=== PATIENT | male | born 1940 | race Caucasian/White ===

== ENCOUNTER 2017-06-21 09:58 | Emergency (ER) | payer MEDICARE, OTHER ==
[2013-11-20 12:16] VITALS: Wt 95.7 kg
[2017-06-21] MEDS ORDERED: MORPHINE 4 MG/ML SDV IVP ONE ×3 (10:05→13:00)
[2017-06-21] MEDS ORDERED: ONDANSETRON 4 MG/2 ML VIAL IVP ONE ×2 (10:30→13:00)
--- NOTE | 2017-06-21 10:46 | RADIOLOGY IMAGING REPORT ---
FACILITY: [facility] - [place] PATIENT NAME: Wolf Camacho : 1940 MR: [id number] V: [id number] EXAM DATE: ORDERING PHYSICIAN: JERMAINE BROWN TECHNOLOGIST: Location: [facility] Patient: Wolf Camacho : 1940 Visit/Account:[id number] Date of Sevice: 06/21/2017 ADDENDUM #1 The original study was submitted with left markers on the AP and lateral views of the knee. This was apparently a right knee not a left knee. Report Dictated By: Montse Rucker MD at 06/21/2017 12:19 PM Report E-Signed By: Montse Rucker MD at 06/21/2017 12:20 PM ORIGINAL REPORT Exam type: KNEE 4 VIEW RIGHT History: fall with known right knee prosthetic and obvious defor Comparison: August 12, 2009. Findings: Two views the left knee were submitted There is a severely comminuted fracture through the distal left femoral diaphysis and metaphysis. Th e fracture extends to the femoral component of the left knee arthroplasty. There is dorsal angulatio n of the distal fragment. There is also slight medial displacement of the distal fragment IMPRESSION: 1. Severe comminuted fracture the distal left femoral diaphysis and metaphysis with the fracture ext ending to the femoral component of the left knee arthroplasty as described above. Report Dictated By: Montse Rucker MD at 06/21/2017 10:42 AM Report E-Signed By: Montse Rucker MD at 06/21/2017 10:44 AM WSN:[id number]
--- NOTE | 2017-06-21 11:08 | EKG ---
FACILITY: [facility] PATIENT NAME: JORGE VILLATORO : [id number] MR: [id number] V: [id number] EXAM DATE: ORDERING PHYSICIAN: JERMAINE BROWN TECHNOLOGIST: JORGE Mitchell Reason : FALL Blood Pressure : / mmHG Vent. Rate : 068 BPM Atrial Rate : 068 BPM P-R Int : 208 ms QRS Dur : 114 ms QT Int : 428 ms P-R-T Axes : 052 -52 048 degrees QTc Int : 455 ms Sinus rhythm with premature supraventricular complexes Left axis deviation Minimal voltage criteria for LVH, may be normal variant Anterior infarct , age undetermined Abnormal ECG When compared with ECG of 29-OCT-2015 12:45, premature supraventricular complexes are now present Confirmed by CARMINA OWUSU ([id number]) on 06/22/2017 12:52:12 PM Referred By: KEVIN Confirmed By:CARMINA OWUSU
[2017-06-21 11:31] LABS: PLATELET COUNT, AUTOMATED 294 K/uL (150-450)
[2017-06-21 11:38] LABS: INR 1.01
[2017-06-21] MEDS ORDERED: DIAZEPAM 5 MG TAB PO ONE ×2 (11:40→13:30)
--- NOTE | 2017-06-21 12:07 | RADIOLOGY IMAGING REPORT ---
[place] [facility] [place]: Wolf Camacho : 1940 MR: [id number] V: [id number] EXAM DATE: ORDERING PHYSICIAN: JERMAINE BROWN TECHNOLOGIST: Location: [facility] [place] Patient: Wolf Camacho : 1940 Visit/Account:[id number] Date of Sevice: 06/21/[address] scan without contrast COMPARISONS: None ADDITIONAL PERTINENT HISTORY: Fall with anisocoria TECHNIQUE: Multiple axial images were obtained from the skull base to the vertex without IV contrast . One of the following dose optimization techniques was utilized in the performance of this exam: Aut omated exposure control; adjustment of the mA and/or kV according to the patient's size; or use of an iterative reconstruction technique. Specific details can be referenced in the facility's radiology CT exam operational policy. FINDINGS: Midline shift: Findings of an underlying mass involving the pituitary fossa with mild expansion of th e pituitary fossa measuring 1.4 x 1.5 x 1.5 cm. Soft tissue density extends into the right cavernous sinus as well as into the superior posterior aspects of the right sphenoid sinus concerning for exten miguel of this lesion into these regions. 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 Ventricles: Mild enlargement of the lateral and third ventricles. Brain parenchyma: Patchy hypoattenuation within the periventricular and subcortical white matter, no nspecific but likely representing small vessel ischemic change on a chronic basis. No intraparenchyma l hemorrhage or mass effect. Extra-axial spaces: Mild cerebral atrophy. Intracranial vasculature: Cavernous internal carotid artery calcifications. Otherwise negative Osseous structures: Negative Paranasal sinuses and mastoid air cells: Moderate lobular mucosal thickening involving both maxillar y sinuses. Mild mucosal thickening involving the ethmoid air cells and frontal sinuses. Soft tissue d ensity involving the posterior superior aspects of the right sphenoid sinus. Surrounding soft tissues and orbits: Negative IMPRESSION: 1. Age related changes as described above. 2. No evidence of acute intracranial traumatic injury. 3. 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 If felt clinically appropriate an MRI of the brain with dedicated imaging of the pituitary fossa with be of benefit for further evalua tion. Results were discussed with JERMAINE BROWN at 06/21/2017 12:04 PM. Report Dictated By: Uriel Mcmanus MD at 06/21/2017 11:57 AM Report E-Signed By: Uriel Mcmanus MD at 06/21/2017 12:04 PM WSN:[email or web address]
--- NOTE | 2017-06-21 13:18 | ER Report ---
History and Physical Time Seen By MD: 10:00 Hx. of Stated Complaint: PT FELL IN ALLEYWAY AND FELT R KNEE DISPLACE HPI/ROS This is a very pleasant 77-year-old male who fell onto his right knee while taking out the trash just prior to arriving in the emergency department. He is status post a right knee replacement. No other injuries. No head trauma and no loss of consciousness. He takes a full aspirin daily and no other anticoagulant medications. He is complaining of pain in his right knee. He is unable to bear weight or straighten his right leg fully. Remainder of the 14 system rev: Yes Allergies: Coded Allergies: Soap (Verified Allergy, Intermediate, BLISTERS, 11/14/15) povidone-iodine (Verified Allergy, Intermediate, BLISTERS, 11/14/15) Home Meds Reported Medications Cholecalciferol (Vitamin D3) (VITAMIN D) 5,000 Unit Tablet, 5000 UNIT PO DAILY 11/14/15 Pantoprazole Sodium (PANTOPRAZOLE SODIUM) 40 Mg Tablet.dr, 1 TAB PO QDAY, TAB.SR 11/10/15 Folic Acid (FOLIC ACID) 20 Mg Capsule, 20 MG PO QDAY, CAPSULE 11/03/15 Iron (IRON) 18 Mg Tablet, 27 MG PO 11/03/15 Oxybutynin Chloride (OXYBUTYNIN CHLORIDE ER) 10 Mg Tab.er.24, 10 MG PO QDAY, TAB.SR 11/03/15 Oxycodone Hcl/Acetaminophen (OXYCODONE-ACETAMINOPHEN 5-325) 1 Each Tablet, 1 EACH PO PRN, TAB 11/03/15 Adalimumab (HUMIRA) 40 Mg/0.8 Ml/Kit Kit, 40 MG SUBQ, KIT 02/22/14 Levothyroxine Sodium (LEVOTHYROXINE SODIUM) 75 Mcg Tablet, 75 MCG PO QDAY 02/22/14 Ascorbic Acid (VITAMIN C) 250 Mg Tablet, 250 MG PO QDAY 10/14/13 Loperamide Hcl (IMODIUM A-D) 1 Mg/7.5 Ml Liquid, 1 MG PO PRN 10/14/13 Lisinopril (LISINOPRIL) 20 Mg Tablet, 20 MG PO QDAY 04/12/13 Discontinued Reported Medications Atenolol (ATENOLOL) 25 Mg Tablet, 1 TAB PO QDAY, TAB 04/12/13 Hydrochlorothiazide (HYDROCHLOROTHIAZIDE) 25 Mg Tablet, 1 TAB PO QDAY 04/12/13 Potassium Chloride (K-Laila) 20 Meq/Pkt Packet, 20 MEQ PO DAILY, 0 Refills 08/21/09 Old Medical Records Reviewed: Yes Hx Smoking: No Smoking Status: Never Smoker Hx Substance Use Disorder: No Hx Alcohol Use: No Family History of: HTN Constitutional Vital Sign - Last 24 Hours 06/21/17 06/21/17 06/21/17 06/21/17 09:58 09:58 09:59 10:13 Temp 98.2 Pulse 74 ??? 65 Resp 16 11 B/P (MAP) 134/83 134/83 (100) Pulse Ox 92 92 94 06/21/17 06/21/17 06/21/17 06/21/17 10:28 10:30 10:43 10:58 Pulse 69 62 63 Resp 15 19 11 B/P (MAP) 125/80 (95) Pulse Ox 94 95 95 06/21/17 06/21/17 06/21/17 06/21/17 11:00 11:13 11:18 11:30 Pulse 62 67 Resp 11 19 B/P (MAP) 132/88 (103) 139/121 (127) Pulse Ox 96 95 06/21/17 06/21/17 06/21/17 06/21/17 11:33 11:48 11:52 12:00 Pulse 62 74 Resp 15 15 B/P (MAP) 151/84 (106) 149/81 (103) Pulse Ox 93 94 06/21/17 06/21/17 06/21/17 06/21/17 12:03 12:18 12:20 12:33 Pulse 65 75 ??? Resp 21 13 41 B/P (MAP) 147/86 (106) Pulse Ox 88 94 84 06/21/17 12:40 B/P (MAP) 140/100 (113) Physical Exam General Appearance: The patient is alert, has no immediate need for airway protection and no current signs of toxicity. Eyes: Pupils equal and round no injection. Respiratory: Chest is non tender, lungs are clear to auscultation. Cardiac: regular rate and rhythm Gastrointestinal: Abdomen is soft and non tender, no masses, bowel sounds normal. Musculoskeletal: TTP to the right knee with swelling and obvious deformity. Unable to fully straighten right knee. N/V in tact. Palpable pulses throughout Neck: Neck is supple and non tender. Neuro: sensation grossly in tact Skin: No rashes or lesions. DIFFERENTIAL DIAGNOSIS: After history and physical exam differential diagnosis was considered for arterial injury, fracture, dislocation, other occult injuries Medical Decision Making Data Points Result Diagram: 06/21/17 1119 06/21/17 1119 Laboratory Hematology Test 06/21/17 11:19 Red Blood Count 3.93 M/uL (4.00-5.60) Mean Corpuscular Volume 86.5 fL (80.0-96.0) Mean Corpuscular Hemoglobin 29.4 pg (26.0-33.0) Mean Corpuscular Hemoglobin Concent 34.0 g/dL (32.0-36.0) Red Cell Distribution Width 16.5 % (11.5-14.5) Mean Platelet Volume 6.8 fL (7.2-11.1) Neutrophils (%) (Auto) 71.0 % (39.4-72.5) Lymphocytes (%) (Auto) 19.2 % (17.6-49.6) Monocytes (%) (Auto) 7.3 % (4.1-12.4) Eosinophils (%) (Auto) 2.0 % (0.4-6.7) Basophils (%) (Auto) 0.5 % (0.3-1.4) Nucleated RBC Relative Count (auto) 0.2 /100WBC Neutrophils # (Auto) 5.1 K/uL (2.0-7.4) Lymphocytes # (Auto) 1.4 K/uL (1.3-3.6) Monocytes # (Auto) 0.5 K/uL (0.3-1.0) Eosinophils # (Auto) 0.1 K/uL (0.0-0.5) Basophils # (Auto) 0.0 K/uL (0.0-0.1) Nucleated RBC Absolute Count (auto) 0.01 K/uL Prothrombin Time 13.3 seconds (12.0-14.4) Prothromb Time International Ratio 1.01 Activated Partial Thromboplast Time 35 seconds (23-35) Sodium Level 137 mmol/L (137-145) Potassium Level 3.4 mmol/L (3.5-5.0) Chloride Level 97 mmol/L (98-107) Carbon Dioxide Level 32 mmol/L (22-30) Blood Urea Nitrogen 20 mg/dl (9-21) Creatinine 1.00 mg/dl (0.66-1.25) Glomerular Filtration Rate Calc > 60.0 Random Glucose 113 mg/dl (75-110) Calcium Level 8.3 mg/dl (8.4-10.2) Total Bilirubin 0.5 mg/dl (0.2-1.3) Aspartate Amino Transf (AST/SGOT) 18 U/L (0-35) Alanine Aminotransferase (ALT/SGPT) 28 U/L (0-56) Alkaline Phosphatase 58 U/L (0-126) Total Protein 5.4 gm/dl (6.3-8.2) Albumin 2.8 g/dl (3.5-5.0) Chemistry Test 06/21/17 11:19 White Blood Count 7.2 k/uL (4.5-11.0) Red Blood Count 3.93 M/uL (4.00-5.60) Hemoglobin 11.6 g/dL (14.0-18.0) Hematocrit 34.0 % (42.0-52.0) Mean Corpuscular Volume 86.5 fL (80.0-96.0) Mean Corpuscular Hemoglobin 29.4 pg (26.0-33.0) Mean Corpuscular Hemoglobin Concent 34.0 g/dL (32.0-36.0) Red Cell Distribution Width 16.5 % (11.5-14.5) Platelet Count 294 K/uL (150-450) Mean Platelet Volume 6.8 fL (7.2-11.1) Neutrophils (%) (Auto) 71.0 % (39.4-72.5) Lymphocytes (%) (Auto) 19.2 % (17.6-49.6) Monocytes (%) (Auto) 7.3 % (4.1-12.4) Eosinophils (%) (Auto) 2.0 % (0.4-6.7) Basophils (%) (Auto) 0.5 % (0.3-1.4) Nucleated RBC Relative Count (auto) 0.2 /100WBC Neutrophils # (Auto) 5.1 K/uL (2.0-7.4) Lymphocytes # (Auto) 1.4 K/uL (1.3-3.6) Monocytes # (Auto) 0.5 K/uL (0.3-1.0) Eosinophils # (Auto) 0.1 K/uL (0.0-0.5) Basophils # (Auto) 0.0 K/uL (0.0-0.1) Nucleated RBC Absolute Count (auto) 0.01 K/uL Prothrombin Time 13.3 seconds (12.0-14.4) Prothromb Time International Ratio 1.01 Activated Partial Thromboplast Time 35 seconds (23-35) Glomerular Filtration Rate Calc > 60.0 Calcium Level 8.3 mg/dl (8.4-10.2) Total Bilirubin 0.5 mg/dl (0.2-1.3) Aspartate Amino Transf (AST/SGOT) 18 U/L (0-35) Alanine Aminotransferase (ALT/SGPT) 28 U/L (0-56) Alkaline Phosphatase 58 U/L (0-126) Total Protein 5.4 gm/dl (6.3-8.2) Albumin 2.8 g/dl (3.5-5.0) Coagulation Test 06/21/17 11:19 Prothrombin Time 13.3 seconds Prothromb Time International Ratio 1.01 Activated Partial Thromboplast Time 35 seconds EKG/Imaging Monitor Interpretation: Normal Sinus Rhythm Imaging Results: CT scan of the head was obtained. The results of the study are incidental finding of a pituitary adenoma. The study was read by the radiologist. I viewed the images myself on the PACS system. X-ray: right knee was obtained. I viewed the images myself on the PACS system. My interpretation of the images is: comminuted christina-prosthetic fracture of the right distal femur. The radiologist interpretation had no clinically significant variation from this interpretation. ED Course/Re-evaluation Clinical Indication for ER IV: IV Access ED Course 06/21/2017 1:17:17 pm This is a very pleasant 77-year-old male status post bilateral knee replacements. He fell directly onto his right knee this morning while taking out the trash. No other injuries. Some mild anasicora was noted on his exam, and a CT scan of the head was obtained. There is an incidental finding of a small pituitary adenoma. It is unknown whether he's had anisicora before. His neuro exam is otherwise intact. He is neurovascularly intact. He has a comminuted fracture of the right christina prosthesis at the distal femur he has palpable pulses both in the right popliteal and distal pulses of the right lower extremity. I do not think he has an arterial injury and there is no dislocation. His orthopedic surgeon Dr. Saad Calvo is still currently practicing at [facility]. He will be transferred to the emergency department in [place] for further evaluation and admission for definitive repair of his fracture. Decision to Disposition Date: June 21, 2017 Decision to Disposition Time: 13:12 Transfer Facility [facility] Depart Departure Latest Vital Signs Vital Signs Date Time Temp Pulse Resp B/P (MAP) Pulse Ox O2 Delivery O2 Flow Rate FiO2 06/21/17 12:40 140/100 (113) 06/21/17 12:33 ??? 41 84 06/21/17 09:58 98.2 Impression: Primary Impression: Fracture of distal femur Condition: Improved Referrals: COCO LUCIA (PCP) Problem Qualifiers Primary Impression: Fracture of distal femur Encounter type: initial encounter Fracture type: closed Fracture morphology : unspecified fracture morphology Laterality: right Qualified Codes: S72.401A - Unspecified fracture of lower end of right femur, initial encounter for closed fracture JERMAINE BROWN MD June 21, 2017 13:18
[2017-06-21 13:20] VITALS: BP 138/88
== END 2017-06-21 13:30 | disposition short-term general hospital (02) ==
LOC: ER 10:00
DX: S72.401A Unspecified fracture of lower end of right femur, initial encounter for closed fracture (principal); W18.30XA Fall on same level, unspecified, initial encounter; Y93.89 Activity, other specified; H57.02 Anisocoria; R94.31 Abnormal electrocardiogram [ECG] [EKG]
CPT/HCPCS: 36415; 70450; 73564; 85025; 85610; 85730; 86850; 86900; 86901; 93005; 96374; 96375; 99285; A9270; J2270; J2405; 82040; 82247; 82310; 82374; 82435; 82565; 82947; 84075; 84132; 84155; 84295; 84450; 84460; 84520

== ENCOUNTER → 2017-06-21 | Outpatient (CLI) | payer MEDICARE, OTHER ==
[2013-11-20 12:16] VITALS: BMI 32.5
[~2017-06-21] MED LIST: ACET650O4 PO; ADA40I SUBQ; AMLO-96 PO; APIX2.5T PO; ASCO250T86 PO; ATEN-65 PO; ATEN1TAB PO; ATEN1TAB47 PO; AZA50 PO; BAC15T TOP; CEPH-13 PO; CHOL400C10 PO; CHOL500045 PO; DAR100 PO; DOCU-416 PO; ESZO3TAB37 PO; FES4PT PO; FLU180SY9 IM; FLUC100T35 PO; FLUT16SP19 NS; FOLI20CA2 PO; FURO-45 PO; H2O24 TOP; HYDR-2966 PO; IRON18TA2 PO; LEV500 PO; LEVO75TA73 PO; LEVO88TA42 PO; LISI20TA29 PO; LOPE1LIQ49 PO; LOPE2CAP88 PO; LOR5/325 PO; MOM PO; OMEP-153 PO; OXYB10TA16 PO; OXYC-373 PO; OXYC-865 PO; PANT40TA65 PO; PER PO; POTA20PA10 PO; POTA20PI5 IV; PRE20 PO; PRED20TA6 PO; PRO25 PO; TAM4 PO; VITA1CAP46 PO; ZOLP-350 PO
== END ==
LOC: AMB 09:21
PROVIDERS: ATTEND Nurse Practitioner
DX: M25.561 Pain in right knee (principal); M79.89 Other specified soft tissue disorders; R09.02 Hypoxemia; R11.0 Nausea; W18.30XA Fall on same level, unspecified, initial encounter
CPT/HCPCS: A0425; A0427

== ENCOUNTER → 2017-06-21 | Outpatient (CLI) | payer MEDICARE, OTHER ==
[2013-11-20 12:16] VITALS: BMI 32.5
== END ==
LOC: AMB 13:47
PROVIDERS: ATTEND Nurse Practitioner
DX: S72.401A Unspecified fracture of lower end of right femur, initial encounter for closed fracture (principal)
CPT/HCPCS: A0425; A0426

== ENCOUNTER 2017-11-02 14:30 | Outpatient (RCR) | payer MEDICARE, OTHER ==
[2013-11-20 12:16] VITALS: BMI 32.5
--- NOTE | 2017-09-06 16:06 | PT INITIAL EVALUATION ---
MEDICAL DIAGNOSIS: Periprosthetic supracondylar fracture of the femur, subsequent encounter M97.8XXD, Z96.659, Aftercare following surgery of the musculoskeletal system Z47.89, S/P ORIF fracture Z96.7, Z87.81 TREATMENT DIAGNOSIS: Same, Altered gait, imbalance DATE OF ONSET: 06/21/17 SUBJECTIVE: Wolf Camacho presents to PT to continue his rehabilitation for a R supracondylar femoral fracture from a fall in the alley behind his house onto his R knee, 06/21/17. He has completed rehabilitation in [place] and would like to improve his balance, gait, return to driving, walking with a walking stick. Pain location is lumbar, R knee and described as ache. Pain scale is on a ten point pain scale. Pain is worse with walking and better with rest, stimulator. REHAB PROBLEM LIST: Increased Pain Decreased ROM Decreased Strength Impaired Transfers Decreased Endurance Decreased Balance Decreased Function Decreased ADL's Decreased Mobility Decreased Gait PREVIOUS MEDICAL HISTORY: B TKA, R PRABHA, post-polio syndrome, peripheral neuropathy, parathyroidectomy, sinus surgery, Crohn's disease, cholecystectomy , pancreatitis, prostate cancer, lumbar spinal stimulator, R ulnar nerve release, B CTR, R shoulder tumor removal, a. fib once. 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 OBJECTIVE: Posture: Varus R knee, stooped trunk, heels 8" apart, low arches. ROM: R knee A/PROM -20/-10 to 100/110 degrees. B ankle DF 0 deg in rear foot neutral. R knee is ~twice the size of the L knee. Strength: R quad 4/5, hams 4+/5, ankle DF 5-/5, peroneals 4+/5 PF 3/5, L quad. , hams., DF 4+/5, peroneals 3+/5. Sensation: NT (peripheral neuropathy) Mobility: Sit to stand with UE use, unsteady immediate standing balance. Gait: Gait speed 10 feet/15 seconds, a household ambulator speed. Wolf ambulates with feet not passing each each other or clearing the floor, L lateral foot droop but not full drop. Tinetti Gait and Balance 13, a high fall risk for community ambulation. Balance: Unsteady turning 90 degrees, static stand with eyes closed on firm surface. ASSESSMENT: Wolf Camacho present with weakness, altered gait, balance, ROM, function, endurance, gait speed after his R supracondylar fracture in Jun, 2017. He did well with static postural control and LE exercise today. Short Term Goals 1 month: Wolf steps laterally without lateral L foot droop for fall risk reduction. 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 3 months: Gait speed 10 feet/10 seconds for improve ADL function, walking stick or cane. 4 months: Wolf descends stairs with handrail with R eccentric quad control, drives 1.0 to 2.0 hours with R knee pain 03/19. 5 months: Gait speed 10 feet/5 seconds with stick, demonstrates corrective balance reactions in turns, retro walking short distances. 6 months: 10 - 15 feet independent gait within his home, long distance community ambulator with stick, cane. Patient's Goals Drive, community ambulator. PLAN: Patient to be seen for Manual Therapy Strengthening/condition Ice/Heat Range of Motion Spinal Stabilization Stretching Neuromuscular Re-ed Electrical Stim Gait Trg/Balance Trg Home Exercise Program 3x/Week for 6 months Thank you for this referral. If you have any questions, comments, or concerns about this report or plan, please contact me at . MTDD
--- NOTE | 2017-09-30 15:45 | PT PLAN OF CARE ---
Physician: Ryan Downs PA-C Patient is being seen: 2-3x/week Therapist: Sydney Leon PT Medical Diagnosis: Periprosthetic supracondylar fracture of the femur, subsequent encounter M9 Treatment Diagnosis: Same, Altered gait, imbalance Date of Onset: 06/21/17 Date of Initial Evaluation: 09/06/17 Date patient was last seen: 09/30/17 Number of treatments: 10 Number of cancellations/No shows: 1 INTERVENTIONS: Manual Therapy, Strengthening, Range of Motion, Stretching, Gait Trg/Balance Trg GOALS: 1 month: Wolf steps laterally without lateral L foot droop for fall risk reduction. 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 3 months: Gait speed 10 feet/10 seconds for improve ADL function, walking stick or cane. 4 months: Wolf descends stairs with handrail with R eccentric quad control (not met), drives 1.0 to 2.0 hours with R knee pain 2/10 (not met). 5 months: Gait speed 10 feet/5 seconds with stick, demonstrates corrective balance reactions in turns, retro walking short distances. 6 months: 10 - 15 feet independent gait within his home, long distance community ambulator with stick, cane. PATIENT'S GOAL: Drive (met), community ambulator (progressing). Patient Compliance: Excellent Prognosis: Excellent Reasons for continuing therapy: S: Wolf henriquez he was able to stand 30 min. at a time this morning while picking choke cherries in his back yard, has driven around [place]. Car transfers are now independent and he is doing short distance community ambulation. He rates R knee pain 2/10 with standing. Posture: Varus R knee, flexed trunk, heels 6" apart, low arches. ROM: R knee A/PROM 15/10 to 115/127 degrees. B ankle DF 0 deg in rear foot neutral. Tight IT bands, psoas, quads, calves. Gait/balance: Gait with rollator with feet passing each other and clearing the floor. Balance: Steady with push to chest, with eyes closed. Tinetti Gait and Balance improved to 23, a fall risk. Double limb support currently. Mobility: Sit to stand without UE use, steady immediate standing balance. A/P: Wolf Camacho is improving functional mobility. If you agree, we'll continue 3x/week 5.25 months to progress to prior level of function, including gait with walking stick, community ambulator. MIKA
[~2017-11-02 14:30] MED LIST changes: +AMLO-111 PO; -AMLO-96 PO
--- NOTE | 2017-11-08 08:33 | PT PLAN OF CARE ---
Physician: Ryan Downs PA-C Patient is being seen: 2-3x/week Therapist: Sydney Leon PT Medical Diagnosis: Periprosthetic supracondylar fracture of the femur, subsequent encounter M9 Treatment Diagnosis: Same, Altered gait, imbalance Date of Onset: 06/21/17 Date of Initial Evaluation: 09/06/17 Date patient was last seen: 11/02/17 Number of treatments: 17 Number of cancellations/No shows: 3 INTERVENTIONS: Strengthening/condition, Manual Therapy, Range of Motion, Stretching, Neuromuscular Re-ed, Gait Trg/Balance Trg, Home Exercise Program GOALS: 1 month: Wolf steps laterally without lateral L foot droop for fall risk reduction. 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 3 months: Gait speed 10 feet/10 seconds for improve ADL function, walking stick or cane. (not met) 4 months: Wolf descends stairs with handrail with R eccentric quad control (not met), drives 1.0 to 2.0 hours with R knee pain 2/10 (not met). 5 months: Gait speed 10 feet/5 seconds with stick, demonstrates corrective balance reactions in turns, retro walking short distances. (not met) 6 months: 10 - 15 feet independent gait within his home, long distance community ambulator with stick, cane. (not met) PATIENT'S GOAL: Drive (met), community ambulator (progressing). Patient Compliance: Excellent Prognosis: Excellent Reasons for discontinuing therapy: S: Wolf has been hospitalized at [facility] for a. fib. and R knee swelling. Before he became ill, he related he could work his garden, did short distance ambulation with rollator at [place], about [facility] and to appointments and was driving. R knee pain was 2/10 most of the time. O: As of 11/02/17: Posture: Varus R knee, stooped trunk, heels 8" apart, low arches. ROM: R knee A/PROM 0/0 (10/24/17) to 115/126 (10/24/17) degrees. Strength: NT that day, but stand to sit 23" seat height with eccentric quad control. Gait/Balance: Rollator, flexed trunk, heel to toe pattern, slow cadance. Double limb support for balance. Mobility: Sit to stand with UE use, steady immediate standing balance. A/P: Wolf Camacho had been making progress in ambulation, strengthening, hadn't advanced to balance training yet in recovering from his R supracondylar fracture. As he's hospitalized, I need to DC PT. If I can assist in Wolf Camacho's physical therapy in the future, I'd be happy to work with him. Thank you. MIKA
== END 2017-11-02 18:00 | disposition home or self-care (01) ==
LOC: PT 14:30
PROVIDERS: ATTEND Otolaryngology
DX: Z47.89 Encounter for other orthopedic aftercare (principal); M97.8XXD Periprosthetic fracture around other internal prosthetic joint, subsequent encounter; R26.89 Other abnormalities of gait and mobility; Z96.653 Presence of artificial knee joint, bilateral; Z96.7 Presence of other bone and tendon implants; Z87.81 Personal history of (healed) traumatic fracture; M54.5 Low back pain; Z96.641 Presence of right artificial hip joint
CPT/HCPCS: 97162

== ENCOUNTER 2017-11-03 23:57 | Emergency (ER) | payer MEDICARE, OTHER ==
[2013-11-20 12:16] VITALS: Wt 104.3 kg
[2017-11-04 00:19] LABS: PLATELET COUNT, AUTOMATED 306 K/uL (150-450)
[2017-11-04 00:29] LABS: INR 1.18
--- NOTE | 2017-11-04 00:52 | ER Report ---
History and Physical Time Seen By MD: 23:57 Hx. of Stated Complaint: PATIENT WAS DOING PHYSICAL THERAPY WHEN THE PATIENT POSSIBLY DID TOO MUCH AND HIS KNEE WAS SWOLLEN AND STARTED TO HURT. HPI/ROS CHIEF COMPLAINT: Right knee swelling and pain HISTORY OF PRESENT ILLNESS: 77-year-old male with a history of a fractured femur in June of this year [place] [facility] [place] since he had a previous knee replacement. Patient's been 10 weeks in the hospital. He was in physical therapy today rehabbing when he felt a popping sensation in his right knee. It swelled up significantly. He is brought in by EMS. He has a tense joint effusion on the right is warm to the to [facility]. I suspect a hemarthrosis. Patient reports he is on blood thinners. Patient's placed on a glost tile sorter and noted that he is in atrial fibrillation with rapid ventricular response rate of 160. Patient was mildly hypoxic. Placed on O2 by EMS. Patient voices no chest pain or shortness of b reath. Patient denies cough. REVIEW OF SYSTEMS: Respiratory: No cough, no dyspnea. Cardiovascular: No chest pain, no palpitations. Gastrointestinal: No vomiting, no abdominal pain. Musculoskeletal: As above Allergies: Coded Allergies: Soap (Verified Allergy, Intermediate, BLISTERS, 11/04/17) povidone-iodine (Verified Allergy, Intermediate, BLISTERS, 11/04/17) Home Meds Reported Medications Cholecalciferol (Vitamin D3) (VITAMIN D) 5,000 Unit Tablet, 5000 UNIT PO DAILY 11/14/15 Pantoprazole Sodium (PANTOPRAZOLE SODIUM) 40 Mg Tablet.dr, 1 TAB PO QDAY, TAB.SR 11/10/15 Folic Acid (FOLIC ACID) 20 Mg Capsule, 20 MG PO QDAY, CAPSULE 11/03/15 Iron (IRON) 18 Mg Tablet, 27 MG PO 11/03/15 Oxybutynin Chloride (OXYBUTYNIN CHLORIDE ER) 10 Mg Tab.er.24, 10 MG PO QDAY, TAB.SR 11/03/15 Oxycodone Hcl/Acetaminophen (OXYCODONE-ACETAMINOPHEN 5-325) 1 Each Tablet, 1 EACH PO PRN, TAB 11/03/15 Adalimumab (HUMIRA) 40 Mg/0.8 Ml/Kit Kit, 40 MG SUBQ, KIT 02/22/14 Levothyroxine Sodium (LEVOTHYROXINE SODIUM) 75 Mcg Tablet, 75 MCG PO QDAY 02/22/14 Ascorbic Acid (VITAMIN C) 250 Mg Tablet, 250 MG PO QDAY 10/14/13 Loperamide Hcl (IMODIUM A-D) 1 Mg/7.5 Ml Liquid, 1 MG PO PRN 10/14/13 Lisinopril (LISINOPRIL) 20 Mg Tablet, 20 MG PO QDAY 04/12/13 Reviewed Nurses Notes: Yes Old Medical Records Reviewed: Yes Hx Smoking: No Smoking Status: Never Smoker Hx Substance Use Disorder: No Hx Alcohol Use: No Constitutional Vital Sign - Last 24 Hours 11/03/17 11/03/17 11/03/17 11/04/17 23:57 23:57 23:58 00:00 Temp 100.0 Pulse 154 150 Resp 19 B/P (MAP) 132/114 123/114 (117) 116/97 (103) Pulse Ox 85 78 O2 Delivery Room Air 11/04/17 11/04/17 11/04/17 11/04/17 00:27 00:30 00:57 01:00 Pulse 137 158 Resp 9 21 B/P (MAP) 123/99 (107) 109/93 (98) Pulse Ox 91 11/04/17 11/04/17 11/04/17 11/04/17 01:27 01:30 02:00 02:30 Pulse 170 125 96 Resp 25 19 20 B/P (MAP) 122/96 (105) 129/96 (107) 137/81 (99) Pulse Ox 92 11/04/17 11/04/17 11/04/17 11/04/17 03:00 03:02 03:30 04:00 Pulse 119 129 113 Resp 14 20 B/P (MAP) 134/93 (107) 153/121 (132) Pulse Ox 97 94 11/04/17 11/04/17 11/04/17 11/04/17 04:00 04:03 04:08 04:30 Pulse 112 119 Resp 14 15 B/P (MAP) 119/92 (101) 140/106 (117) Pulse Ox 93 95 11/04/17 11/04/17 11/04/17 11/04/17 04:38 05:00 05:08 05:30 Pulse 128 111 Resp 13 28 B/P (MAP) 125/76 (92) 112/81 (91) Pulse Ox 87 93 11/04/17 11/04/17 11/04/17 11/04/17 05:38 05:43 06:00 06:13 Pulse 113 103 103 Resp 24 20 21 B/P (MAP) 118/97 (104) Pulse Ox 93 95 94 11/04/17 11/04/17 11/04/17 11/04/17 06:30 06:34 06:34 06:35 Pulse 95 99 Resp 16 23 B/P (MAP) 113/76 (88) Pulse Ox 95 90 O2 Delivery Oxy Mask O2 Flow Rate 8.0 11/04/17 11/04/17 11/04/17 11/04/17 06:45 06:55 07:00 07:05 Pulse 108 106 107 Resp 16 23 21 B/P (MAP) 107/72 (84) Pulse Ox 95 93 93 Physical Exam Normotensive, tachycardic to the 170s, fever 100.0, pulse ox 90% on 4 L by simple mask General Appearance: The patient is alert, has no immediate need for airway protection and no current signs of toxicity. Slightly pale appearing, skin warm and dry HEENT: Pupils equal and round no injection. Oropharynx without redness or exudate, mucous. Membranes are moist Respiratory: Chest is non tender, bibasilar rails, no expiratory wheezing Cardiac: Tachycardic, irregular rate and rhythm, no murmur. Distant heart sounds Gastrointestinal: Abdomen is soft and non tender, no masses, bowel sounds normal. Musculoskeletal: Neck: Neck is supple and non tender. No lymphadenopathy, no JVD Extremities have full range of motion and are non tender. Right knee shows a huge tense, swollen joint effusion on the right knee Skin: No rashes or lesions. DIFFERENTIAL DIAGNOSIS: After history and physical exam differential diagnosis was considered for hemarthrosis, acute arthritis flare, septic joint, prosthetic displacement, additionally,shortness of breath including but not limited to pulmonary infectious process, COPD, asthma, pulmonary embolus and congestive heart failure. Medical Decision Making Data Points Result Diagram: 11/04/17 0004 11/04/17 0004 Laboratory Hematology Test 11/04/17 00:04 11/04/17 00:23 11/04/17 00:53 11/04/17 03:46 Red Blood Count 4.52 M/uL (4.00-5.60) Mean Corpuscular Volume 83.2 fL (80.0-96.0) Mean Corpuscular Hemoglobin 26.0 pg (26.0-33.0) Mean Corpuscular Hemoglobin Concent 31.3 g/dL (32.0-36.0) Red Cell Distribution Width 17.6 % (11.5-14.5) Mean Platelet Volume 7.0 fL (7.2-11.1) Neutrophils (%) (Auto) 85.1 % (39.4-72.5) Lymphocytes (%) (Auto) 5.3 % (17.6-49.6) Monocytes (%) (Auto) 9.1 % (4.1-12.4) Eosinophils (%) (Auto) 0.0 % (0.4-6.7) Basophils (%) (Auto) 0.5 % (0.3-1.4) Nucleated RBC Relative Count (auto) 0.0 /100WBC Neutrophils # (Auto) 15.3 K/uL (2.0-7.4) Lymphocytes # (Auto) 1.0 K/uL (1.3-3.6) Monocytes # (Auto) 1.6 K/uL (0.3-1.0) Eosinophils # (Auto) 0.0 K/uL (0.0-0.5) Basophils # (Auto) 0.1 K/uL (0.0-0.1) Nucleated RBC Absolute Count (auto) 0.00 K/uL Erythrocyte Sedimentation Rate 9 mm/HOUR (0-20) Prothrombin Time 15.1 seconds (12.0-14.4) Prothromb Time International Ratio 1.18 Activated Partial Thromboplast Time 35 seconds (23-35) Sodium Level 132 mmol/L (137-145) Potassium Level 3.8 mmol/L (3.5-5.0) Chloride Level 96 mmol/L (98-107) Carbon Dioxide Level 30 mmol/L (22-30) Blood Urea Nitrogen 20 mg/dl (9-21) Creatinine 1.00 mg/dl (0.66-1.25) Glomerular Filtration Rate Calc > 60.0 Random Glucose 125 mg/dl (75-110) Calcium Level 8.4 mg/dl (8.4-10.2) Total Bilirubin 0.6 mg/dl (0.2-1.3) Aspartate Amino Transf (AST/SGOT) 16 U/L (0-35) Alanine Aminotransferase (ALT/SGPT) 24 U/L (0-56) Alkaline Phosphatase 68 U/L (0-126) Total Protein 5.2 g/dl (6.3-8.2) Albumin 2.8 g/dl (3.5-5.0) D-Dimer Quantitative (PE/DVT) 2.29 ug/ml (0-0.50) B-Type Natriuretic Peptide 617 pg/ml (0-100) Lactate 1.4 mmol/L (0.7-2.1) Body Fluid Type Knee Body Fluid WBC 50 Body Fluid RBC 4832 Body Fluid Crystals None Test 11/04/17 04:10 11/04/17 04:34 Troponin I 0.114 ng/ml Urine Color Yellow Urine Clarity Clear Urine pH 5.0 pH (4.8-9.5) Urine Specific [place] 1.059 Urine Protein 30 mg/dL (NEGATIVE) Urine Glucose (UA) Negative mg/dL (NEGATIVE) Urine Ketones Negative mg/dL (NEGATIVE) Urine Blood Negative (NEGATIVE) Urine Nitrite Negative (NEGATIVE) Urine Bilirubin Negative (NEGATIVE) Urine Urobilinogen Negative mg/dL (0.2-1.9) Urine Leukocyte Esterase Negative (NEGATIVE) Urine RBC <1 /HPF (0-2/HPF) Urine WBC 3 /HPF (0-5/HPF) Urine Squamous Epithelial Cells None /LPF (</=FEW) Urine Transitional Epithelial Cells Few /LPF (NONE-FEW) Urine Bacteria Negative /HPF (NONE-FEW) Urine Hyaline Casts Few /LPF (NONE-FEW) Urine Mucus Few /HPF (NONE-FEW) Chemistry Test 11/04/17 00:04 11/04/17 00:23 11/04/17 00:53 11/04/17 03:46 White Blood Count 18.0 k/uL (4.5-11.0) Red Blood Count 4.52 M/uL (4.00-5.60) Hemoglobin 11.8 g/dL (14.0-18.0) Hematocrit 37.6 % (42.0-52.0) Mean Corpuscular Volume 83.2 fL (80.0-96.0) Mean Corpuscular Hemoglobin 26.0 pg (26.0-33.0) Mean Corpuscular Hemoglobin Concent 31.3 g/dL (32.0-36.0) Red Cell Distribution Width 17.6 % (11.5-14.5) Platelet Count 306 K/uL (150-450) Mean Platelet Volume 7.0 fL (7.2-11.1) Neutrophils (%) (Auto) 85.1 % (39.4-72.5) Lymphocytes (%) (Auto) 5.3 % (17.6-49.6) Monocytes (%) (Auto) 9.1 % (4.1-12.4) Eosinophils (%) (Auto) 0.0 % (0.4-6.7) Basophils (%) (Auto) 0.5 % (0.3-1.4) Nucleated RBC Relative Count (auto) 0.0 /100WBC Neutrophils # (Auto) 15.3 K/uL (2.0-7.4) Lymphocytes # (Auto) 1.0 K/uL (1.3-3.6) Monocytes # (Auto) 1.6 K/uL (0.3-1.0) Eosinophils # (Auto) 0.0 K/uL (0.0-0.5) Basophils # (Auto) 0.1 K/uL (0.0-0.1) Nucleated RBC Absolute Count (auto) 0.00 K/uL Erythrocyte Sedimentation Rate 9 mm/HOUR (0-20) Prothrombin Time 15.1 seconds (12.0-14.4) Prothromb Time International Ratio 1.18 Activated Partial Thromboplast Time 35 seconds (23-35) Glomerular Filtration Rate Calc > 60.0 Calcium Level 8.4 mg/dl (8.4-10.2) Total Bilirubin 0.6 mg/dl (0.2-1.3) Aspartate Amino Transf (AST/SGOT) 16 U/L (0-35) Alanine Aminotransferase (ALT/SGPT) 24 U/L (0-56) Alkaline Phosphatase 68 U/L (0-126) Total Protein 5.2 g/dl (6.3-8.2) Albumin 2.8 g/dl (3.5-5.0) D-Dimer Quantitative (PE/DVT) 2.29 ug/ml (0-0.50) B-Type Natriuretic Peptide 617 pg/ml (0-100) Lactate 1.4 mmol/L (0.7-2.1) Body Fluid Type Knee Body Fluid WBC 50 Body Fluid RBC 4832 Body Fluid Crystals None Test 11/04/17 04:10 11/04/17 04:34 Troponin I 0.114 ng/ml Urine Color Yellow Urine Clarity Clear Urine pH 5.0 pH (4.8-9.5) Urine Specific [place] 1.059 Urine Protein 30 mg/dL (NEGATIVE) Urine Glucose (UA) Negative mg/dL (NEGATIVE) Urine Ketones Negative mg/dL (NEGATIVE) Urine Blood Negative (NEGATIVE) Urine Nitrite Negative (NEGATIVE) Urine Bilirubin Negative (NEGATIVE) Urine Urobilinogen Negative mg/dL (0.2-1.9) Urine Leukocyte Esterase Negative (NEGATIVE) Urine RBC <1 /HPF (0-2/HPF) Urine WBC 3 /HPF (0-5/HPF) Urine Squamous Epithelial Cells None /LPF (</=FEW) Urine Transitional Epithelial Cells Few /LPF (NONE-FEW) Urine Bacteria Negative /HPF (NONE-FEW) Urine Hyaline Casts Few /LPF (NONE-FEW) Urine Mucus Few /HPF (NONE-FEW) Coagulation Test 11/04/17 00:04 11/04/17 00:23 Prothrombin Time 15.1 seconds Prothromb Time International Ratio 1.18 Activated Partial Thromboplast Time 35 seconds D-Dimer Quantitative (PE/DVT) 2.29 ug/ml Urinalysis Test 11/04/17 04:34 Urine Color Yellow Urine Clarity Clear Urine pH 5.0 pH (4.8-9.5) Urine Specific [place] 1.059 Urine Protein 30 mg/dL (NEGATIVE) Urine Glucose (UA) Negative mg/dL (NEGATIVE) Urine Ketones Negative mg/dL (NEGATIVE) Urine Blood Negative (NEGATIVE) Urine Nitrite Negative (NEGATIVE) Urine Bilirubin Negative (NEGATIVE) Urine Urobilinogen Negative mg/dL (0.2-1.9) Urine Leukocyte Esterase Negative (NEGATIVE) Urine RBC <1 /HPF (0-2/HPF) Urine WBC 3 /HPF (0-5/HPF) Urine Squamous Epithelial Cells None /LPF (</=FEW) Urine Transitional Epithelial Cells Few /LPF (NONE-FEW) Urine Bacteria Negative /HPF (NONE-FEW) Urine Hyaline Casts Few /LPF (NONE-FEW) Urine Mucus Few /HPF (NONE-FEW) Microbiology Microbiology Date/Time Source Procedure Growth Status 11/04/17 00:53 Blood Peripheral Draw Blood Culture - Final Resulted 11/04/17 00:53 Blood Culture - Preliminary Gram Positive Cocci Resulted 11/04/17 00:23 Blood Peripheral Draw Blood Culture - Final Resulted 11/04/17 00:23 Blood Culture - Preliminary Gram Positive Cocci Resulted 11/04/17 03:46 Knee Fluid Right Gram Stain - Final Resulted 11/04/17 03:46 Knee Fluid Right Body Fluid Culture Pending Resulted EKG/Imaging EKG Interpretation 12 lead EK Rhythm: Atrial fibrillation with rapid ventricular response, rate 156 bpm, left axis deviation [place]: normal QRS: normal ST segments: Nonspecific ST and T-wave changes, comparison to previous EKG dated 06/21/17. Overall morphology does not appear significantly changed. Patient was in a sinus rhythm with frequent premature supraventricular beats at a rate of 68 bpm, previously 12 lead EK 531 Rhythm: Atrial fibrillation rate of 113 bpm [place]: Left axis deviation QRS: Left ventricular hypertrophy with QRS widening ST segments:, Diffuse nonspecific ST and T-wave changes, comparison to previous EKG dated 06/21/17 Imaging X-ray: Right knee, 3 views was obtained. I viewed the images myself on the PACS system. My interpretation of the images is: Notable prosthetic with intact hardware. There is no obvious fracture noted. The radiologist interpretation had no clinically significant variation from this interpretation. X-ray: Single view portable chest x-ray was obtained. I viewed the images myself on the PACS system. My interpretation of the images is: No infiltrate, no effusion, normal mediastinum, metallic foreign body in the midline. Present on previous chest x-rays 10/29/15. The radiologist interpretation had no clinically significant variation from this interpretation. Results: CT scan of the CTA pulmonary angiogram was obtained. The results of the study are CT angiogram of the chest: Indication: Hypoxia. Technique: Helical CT was performed through the chest following IV contrast enhancement with 75 cc of Isovue 370. Multiplanar reconstructions and MIP images are reviewed. One of the following dose optimization techniques was utilized in the performance of this exam: Automated exposure control; adjustment of the mA and/or kV according to the patient's size; or use of an iterative reconstruction technique. Specific details can be referenced in the facility's radiology CT exam operational policy. Comparison: None. Pulmonary arteries: There is uniform contrast enhancement. There are no signs of pulmonary emboli. Aorta and great vessels: Unremarkable, as visualized. There are no signs of aneurysm. There is mild atherosclerotic calcification in the aortic wall. Heart and pericardial soft tissues: The heart is mildly enlarged. Atherosclerotic calcification is present in the coronary arteries. There is no pericardial effusion or soft tissue abnormality. Mediastinal soft tissues: Unremarkable. Lung driver: There are parenchymal opacities in both lower lung driver, right gr eater than left, which may represent atelectasis or acute inflammation. The lungs are otherwise clear. Pleural spaces: There is minimal fluid in the right pleural space. Otherwise unremarkable. Skeletal structures: There is moderate degenerative disc disease in the spine. A neurostimulator is present in the spinal canal. No acute skeletal deformity is identified. Upper abdomen: Unremarkable, as visualized. IMPRESSION: No evidence of pulmonary emboli. There are parenchymal opacities in both lower lobes, compatible with atelectasis or acute inflammation. Further clinical correlation is recommended. The study was read by the radiologist. I viewed the images myself on the PACS system. ED Course/Re-evaluation Clinical Indication for ER IV: Hydration, IV Access ED Course Patient was admitted to an examination room. H&P was done. The differential diagnoses was considered. Patient with a grossly swollen right knee. He has a low-grade fever. He is tachycardic to the 160s. He has a history of atrial fibrillation. Her previous EKG shows sinus rhythm. Patient's had no blood thinners currently. Patient's on Humira for arthritis treatment. Patient's hypoxic with fever. Diagnostic evaluation is undertaken. Blood cultures are drawn. Patient's rate controlled with diltiazem 20 no grams IV. Patient's d-d rebeca returns elevated at 2.2. A CTA pulmonary angiogram is performed which is negative for pulmonary embolism. There are bilateral patchy lower lobe infiltrates. Patient's blood cell returns at 18,000 with left shift. His right knee for has arthrocentesis performed. His urinalysis Returns unremarkable. Lactate is negative. Patient's urinalysis shows a grossly elevated specific gravity. Fluid boluses are initiated. Troponin is elevated into the upper indeterminate range, suspicious for ischemia. His EKG shows no evidence of ischemia. Compared to previous EKGs. However, it has significant increase in heart rate. A repeat troponin at 3 hours is ordered, which is slightly increased to 0.114. A repeat EKG shows better rate control with QRS angle change with ST elevation in the anterolateral leads. 11/04/2017 3:47:22 am Procedure: Arthrocentesis. After verbal informed consent from patient explaining the risks including infection and bleeding a arthrocentesis was performed on the right knee. The arthrocentesis was performed after the patient was prepped and draped in the usual fashion. The joint was anesthetized with 1% lidocaine. Approximately 30 mL of cloudy yellow fluid was obtained. There were no complications. Fluid was sent for analysis and culture. The procedure was performed by myself. 11/04/2017 6:11:[address] Donohue hospitalist at at [facility] accepts the patient for transfer to his facility. He requests Zosyn and vancomycin be administered. Patient's rate be controlled with diltiazem. Gentle fluid hydration be initiated. Prior to transfer. Decision to Disposition Date: Nov 04, 2017 Decision to Disposition Time: 01:00 Critical Care Time I spent a total of 90 minutes of critical care time in obtaining history, performing a physical exam, bedside monitoring of interventions, collecting and interpreting tests and discussion with consultants but not including time spent performing procedures. Depart Departure Latest Vital Signs Vital Signs Date Time Temp Pulse Resp B/P (MAP) Pulse Ox O2 Delivery O2 Flow Rate FiO2 11/04/17 07:05 107 21 93 11/04/17 07:00 107/72 (84) 11/04/17 06:34 Oxy Mask 8.0 11/03/17 23:57 100.0 Impression: Primary Impression: Non-STEMI (non-ST elevated myocardial infarction) Additional Impressions: Swelling of right knee joint Atrial fibrillation with RVR Fever Leukocytosis Bilateral pulmonary infiltrates on CXR Condition: Improved Disposition: XFER TO ACUTE CARE HOSPITAL Referrals: COCO LUCIA (PCP) Problem Qualifiers Additional Impressions: Fever Fever type: unspecified Qualified Codes: R50.9 - Fever, unspecified Leukocytosis Leukocytosis type: unspecified Qualified Codes: D72.829 - Elevated white blood cell count, unspecified KIRA BAIG DO Nov 04, 2017 00:51
--- NOTE | 2017-11-04 00:56 | EKG ---
FACILITY: [facility] [place] PATIENT NAME: JORGE VILLATORO : [id number] MR: [id number] V: [id number] EXAM DATE: ORDERING PHYSICIAN: KIRA BAIG TECHNOLOGIST: ROSANGELA Test Reason : TACHYCARDIA Blood Pressure : / mmHG Vent. Rate : 156 BPM Atrial Rate : 174 BPM P-R Int : 000 ms QRS Dur : 122 ms QT Int : 310 ms P-R-T Axes : 000 -52 105 degrees QTc Int : 499 ms Atrial fibrillation with rapid ventricular response Left axis deviation Septal infarct (cited on or before 21-JUN-2017) Inferior infarct , age undetermined Marked ST abnormality, possible lateral subendocardial injury Abnormal ECG When compared with ECG of 21-JUN-2017 11:03, Atrial fibrillation has replaced Sinus rhythm Vent. rate has increased BY 88 BPM Confirmed by Isac White ([id number]) on 11/04/2017 6:21:33 AM Referred By: JOVANNI Confirmed By:Isac Shepherd
--- NOTE | 2017-11-04 01:16 | RADIOLOGY IMAGING REPORT ---
FACILITY: [facility] PATIENT NAME: Wolf Camacho : 1940 MR: [id number] V: [id number] EXAM DATE: ORDERING PHYSICIAN: KIRA BAIG TECHNOLOGIST: Location: [facility] [place] Patient: Wolf Camacho : 1940 Visit/Account:[id number] Date of Sevice: 11/04/2017 CHEST SINGLE AP 11/04/2017 00:41 hours. HISTORY: Fever. Evaluate for pneumonia. COMPARISON: 10/29/2015 and studies dating to 11/05/2005. TECHNIQUE: Portable AP view of the chest. FINDINGS: Tubes/lines/hardware: There is a spinal stimulator. Top of the lead terminates at T8. Pulmonary: No infiltrate. There is minimal right basilar atelectasis. There is minimal atelectasis or scarring at the left costophrenic angle that is unchanged. There is no pneumothorax or pleural effus ion. Cardiomediastinal: The cardiac silhouette is at the upper limits of normal. The mediastinal silhouett e is within normal limits. There is mild aortic calcification. Bones/soft tissues: No acute osseous abnormality. The visible abdomen is normal. IMPRESSION: 1. Minimal right basilar atelectasis and minimal scarring or atelectasis at the left costophrenic ang le. No pneumonia. Report Dictated By: Payton Rush at 11/04/2017 1:10 AM Report E-Signed By: Payton Rush at 11/04/2017 1:12 AM WSN:[id number]
--- NOTE | 2017-11-04 01:21 | RADIOLOGY IMAGING REPORT ---
FACILITY: [facility] PATIENT NAME: Wolf Camacho : 1940 MR: [id number] V: [id number] EXAM DATE: ORDERING PHYSICIAN: KIRA BAIG TECHNOLOGIST: [place] [facility] [place] : 1940 Visit/Account:[id number] Date of Sevice: 11/04/2017 KNEE 3 VIEW RIGHT HISTORY: Swollen knee. History of femur fracture 3 months ago. COMPARISON: 06/21/2017 and studies dating to 08/12/2009. TECHNIQUE: AP, oblique, and crosstable lateral views of the right knee. FINDINGS: There is a left total knee arthroplasty. There has been interval placement of a lateral garth te, screws, and cerclage wires transfixing the distal femoral diaphysis and metaphysis. There is irre gular periosteal reaction at the fracture site. No acute fracture. There is diffuse soft tissue swell ing of the lower thigh and in the, and there is a moderate joint effusion. IMPRESSION: 1. Soft tissue swelling and moderate joint effusion, but no acute osseous abnormality of the right kn ee. 2. Irregular periosteal reaction along the medial surface of the healing fracture. Report Dictated By: Payton Rush at 11/04/2017 1:12 AM Report E-Signed By: Payton Rush at 11/04/2017 1:16 AM WSN:[id number]
[2017-11-04] MEDS ORDERED: DILTIAZEM 5 MG/ML 5ML IVPUSH IVP ONE ×3 (01:35→06:15)
[2017-11-04] MEDS ORDERED: IOPAMIDOL 76% 75 ML INFUS BTL 75 ML ONE (01:40)
[2017-11-04] MEDS ORDERED: NS(*) 0.9% 50 ML BAG 50 ML ONE (01:41)
[2017-11-04] MEDS ORDERED: fentaNYL CITR 100 MCG/2 ML AMP IVP ONE ×2 (01:50→06:50)
--- NOTE | 2017-11-04 03:32 | RADIOLOGY IMAGING REPORT ---
[place] [facility] [place] NAME: Wolf Camacho : 1940 MR: [id number] V: [id number] EXAM DATE: ORDERING PHYSICIAN: KIRA BAIG TECHNOLOGIST: Location: [facility] [place] Patient: Wolf Camacho : 1940 Visit/Account:[id number] Date of Sevice: 11/04/2017 CT angiogram of the chest: Indication: Hypoxia. Technique: Helical CT was performed through the chest following IV contrast enhancement with 75 cc of Isovue 370. Multiplanar reconstructions and MIP images are reviewed. One of the following dose optimization techniques was utilized in the performance of this exam: Autom ated exposure control; adjustment of the mA and/or kV according to the patient's size; or use of an i terative reconstruction technique. Specific details can be referenced in the facility's radiology CT exam operational policy. Comparison: None. Pulmonary arteries: There is uniform contrast enhancement. There are no signs of pulmonary emboli. Aorta and great vessels: Unremarkable, as visualized. There are no signs of aneurysm. There is mild a therosclerotic calcification in the aortic wall. Heart and pericardial soft tissues: The heart is mildly enlarged. Atherosclerotic calcification is pr esent in the coronary arteries. There is no pericardial effusion or soft tissue abnormality. Mediastinal soft tissues: Unremarkable. Lung driver: There are parenchymal opacities in both lower lung driver, right greater than left, whic h may represent atelectasis or acute inflammation. The lungs are otherwise clear. Pleural spaces: There is minimal fluid in the right pleural space. Otherwise unremarkable. Skeletal structures: There is moderate degenerative disc disease in the spine. A neurostimulator is p resent in the spinal canal. No acute skeletal deformity is identified. Upper abdomen: Unremarkable, as visualized. IMPRESSION: No evidence of pulmonary emboli. There are parenchymal opacities in both lower lobes, com patible with atelectasis or acute inflammation. Further clinical correlation is recommended. Report Dictated By: Librado Matthews MD at 11/04/2017 3:17 AM Report E-Signed By: Librado Matthews MD at 11/04/2017 3:28 AM WSN:[id number]
[2017-11-04] MEDS ORDERED: ASPIRIN 81 MG CHEW PO ONE (04:05)
[2017-11-04] MEDS ORDERED: cefTRIAXone 2 GM VIAL IVP ONE (04:45)
--- NOTE | 2017-11-04 05:40 | EKG ---
FACILITY: [facility] PATIENT NAME: JORGE VILLATORO : [id number] MR: [id number] V: [id number] EXAM DATE: ORDERING PHYSICIAN: KIRA BAIG TECHNOLOGIST: ROSANGELA Test Reason : REPEAT FOR TACH Blood Pressure : / mmHG Vent. Rate : 113 BPM Atrial Rate : 111 BPM P-R Int : 000 ms QRS Dur : 128 ms QT Int : 350 ms P-R-T Axes : 000 -48 103 degrees QTc Int : 480 ms Atrial fibrillation with rapid ventricular response Left axis deviation Left ventricular hypertrophy with QRS widening Abnormal ECG When compared with ECG of 04-NOV-2017 00:42, No significant change was found Confirmed by Isac White ([id number]) on 11/04/2017 6:22:04 AM Referred By: Confirmed By:Isac Shepherd
[2017-11-04] MEDS ORDERED: PIPERACILLIN/TAZO*3.375GM VIAL 3.375 GM in NS(*) 0.9% 100 ML ADDVANT BAG 100 ML IVPB ONE (06:15)
[2017-11-04] MEDS ORDERED: NS(*) 0.9% 1000 ML BAG 1,000 ML IV ONE (06:15)
[2017-11-04] MEDS ORDERED: VANCOMYCIN 1 GM ADDVIAL 1 GM in NS(*) 0.9% 250 ML ADDVAN BAG 250 ML IVPB ONE (06:15)
[2017-11-04] MEDS ORDERED: ALBUTEROL/IPRATROPIUM 3 ML NEB NEB ONE (06:20)
[2017-11-04 07:00] VITALS: BP 107/72
== END 2017-11-04 07:20 | disposition short-term general hospital (02) ==
LOC: ER 11-04
DX: I21.4 Non-ST elevation (NSTEMI) myocardial infarction (principal); D72.829 Elevated white blood cell count, unspecified; M79.89 Other specified soft tissue disorders; R91.8 Other nonspecific abnormal finding of lung field; I48.2 Chronic atrial fibrillation
CPT/HCPCS: 20610; 36415; 71045; 71275; 73562; 81001; 83605; 83880; 84484; 85025; 85379; 85610; 85651; 85730; 87040; 87071; 87077; 87186; 87205; 89050; 89060; 93005; 94640; 96365; 96367; 96375; 96376; 99291; 99292; A9270; J0696; J2543; J3010; J3370; J3490; J7030; J7050; J7620; Q9967; 82040; 82247; 82310; 82374; 82435; 82565; 82947; 84075; 84132; 84155; 84295; 84450; 84460; 84520

== ENCOUNTER → 2017-11-03 | Outpatient (CLI) | payer MEDICARE, OTHER ==
[2013-11-20 12:16] VITALS: BMI 32.5
== END ==
LOC: AMB 23:30
PROVIDERS: ATTEND Nurse Practitioner
DX: M25.561 Pain in right knee (principal); M79.89 Other specified soft tissue disorders
CPT/HCPCS: A0425; A0427

== ENCOUNTER → 2017-11-04 | Outpatient (CLI) | payer MEDICARE, OTHER ==
[2013-11-20 12:16] VITALS: BMI 32.5
== END ==
LOC: AMB 06:51
PROVIDERS: ATTEND Nurse Practitioner
DX: I21.4 Non-ST elevation (NSTEMI) myocardial infarction (principal); J18.9 Pneumonia, unspecified organism; Z99.81 Dependence on supplemental oxygen; I48.91 Unspecified atrial fibrillation; R53.1 Weakness
CPT/HCPCS: A0425; A0426

== ENCOUNTER → 2017-11-22 | Outpatient (CLI) | payer MEDICARE, OTHER ==
[2013-11-20 12:16] VITALS: BMI 32.5
--- NOTE | 2017-11-22 12:53 | EKG ---
FACILITY: [facility] PATIENT NAME: JORGE VILLATORO : [id number] MR: [id number] V: [id number] EXAM DATE: ORDERING PHYSICIAN: COCO LUCIA TECHNOLOGIST: Test Reason : I48.2 Blood Pressure : / mmHG Vent. Rate : 145 BPM Atrial Rate : 150 BPM P-R Int : 000 ms QRS Dur : 104 ms QT Int : 334 ms P-R-T Axes : 000 -49 126 degrees QTc Int : 518 ms Atrial fibrillation with rapid ventricular response Left axis deviation Septal infarct , age undetermined Abnormal ECG No previous ECGs available Confirmed by JOSE DIAMOND ([id number]) on 11/22/2017 10:16:46 PM Referred By: Confirmed By:JOSE DIAMOND
== END ==
LOC: RESP 11:48
PROVIDERS: ATTEND Nurse Practitioner Family
DX: R94.31 Abnormal electrocardiogram [ECG] [EKG] (principal)
CPT/HCPCS: 93005

== ENCOUNTER 2017-12-20 10:45 | Outpatient (RCR) | payer MEDICARE, OTHER ==
[2013-11-20 12:16] VITALS: BMI 32.5
[2017-11-22 10:23] VITALS: BP 134/95
[2017-11-22] MEDS: DAPTOMYCIN IVPB SCH (10:28)
[2017-11-22] MEDS: NS 0.9% IVPB SCH (10:28)
[2017-11-22] MEDS: NS(*) 0.9% 100 ML BAG 100 ML IVPB PRN (10:28)
[2017-11-23] MEDS: NS 0.9% IVPB SCH (10:00)
[2017-11-23] MEDS: DAPTOMYCIN IVPB SCH (10:00)
[2017-11-23 10:31] VITALS: BP 120/90
[2017-11-23] MEDS: NS(*) 0.9% 100 ML BAG 100 ML IVPB PRN (11:27)
[2017-11-24] MEDS: NS 0.9% IVPB SCH (11:35)
[2017-11-24] MEDS: DAPTOMYCIN IVPB SCH (11:35)
[2017-11-24] MEDS: NS(*) 0.9% 100 ML BAG 100 ML IVPB PRN (11:36)
[2017-11-24 11:40] VITALS: BP 129/89
[2017-11-24 12:13] VITALS: BP 148/101
[2017-11-25 11:10] VITALS: BP 110/70
[2017-11-25] MEDS: NS(*) 0.9% 100 ML BAG 100 ML IVPB PRN (11:23)
[2017-11-25] MEDS: DAPTOMYCIN IVPB SCH (11:23)
[2017-11-25] MEDS: NS 0.9% IVPB SCH (11:23)
[2017-11-26 10:08] VITALS: BP 141/101
[2017-11-26] MEDS: DAPTOMYCIN IVPB SCH (10:08)
[2017-11-26] MEDS: NS(*) 0.9% 100 ML BAG 100 ML IVPB PRN (10:08)
[2017-11-26] MEDS: NS 0.9% IVPB SCH (10:08)
[2017-11-27 09:50] VITALS: BP 121/81
[2017-11-27] MEDS: NS(*) 0.9% 100 ML BAG 100 ML IVPB PRN (09:57)
[2017-11-27] MEDS: DAPTOMYCIN IVPB SCH (10:16)
[2017-11-27] MEDS: NS 0.9% IVPB SCH (10:16)
[2017-11-28] MEDS: NS 0.9% IVPB SCH (10:00)
[2017-11-28] MEDS: DAPTOMYCIN IVPB SCH (10:00)
[2017-11-28] MEDS: NS(*) 0.9% 100 ML BAG 100 ML IVPB PRN (11:26)
[2017-11-29] MEDS: NS 0.9% IVPB SCH (11:09)
[2017-11-29] MEDS: NS(*) 0.9% 100 ML BAG 100 ML IVPB PRN (11:09)
[2017-11-29] MEDS: DAPTOMYCIN IVPB SCH (11:09)
[2017-11-29 11:13] VITALS: BP 134/83
[2017-11-30] MEDS: NS 0.9% IVPB SCH (11:05)
[2017-11-30] MEDS: NS(*) 0.9% 100 ML BAG 100 ML IVPB PRN (11:05)
[2017-11-30] MEDS: DAPTOMYCIN IVPB SCH (11:05)
[2017-11-30 11:18] VITALS: BP 128/79
[2017-11-30 11:43] VITALS: BP 120/80
[2017-12-01] MEDS: NS 0.9% IVPB SCH (10:53)
[2017-12-01] MEDS: DAPTOMYCIN IVPB SCH (10:53)
[2017-12-01] MEDS: NS(*) 0.9% 100 ML BAG 100 ML IVPB PRN (10:54)
[2017-12-01 10:59] VITALS: BP 132/109
[2017-12-02 11:04] VITALS: BP 109/89
[2017-12-02] MEDS: NS(*) 0.9% 100 ML BAG 100 ML IVPB PRN (11:20)
[2017-12-02] MEDS: DAPTOMYCIN IVPB SCH (11:20)
[2017-12-02] MEDS: NS 0.9% IVPB SCH (11:20)
[2017-12-03] MEDS: NS(*) 0.9% 100 ML BAG 100 ML IVPB PRN (11:18)
[2017-12-03] MEDS: DAPTOMYCIN IVPB SCH (11:18)
[2017-12-03] MEDS: NS 0.9% IVPB SCH (11:18)
[2017-12-03 11:19] VITALS: BP 150/78
[2017-12-03 11:50] VITALS: BP 138/78
[2017-12-04] MEDS: NS 0.9% IVPB SCH (11:18)
[2017-12-04] MEDS: DAPTOMYCIN IVPB SCH (11:18)
[2017-12-04] MEDS: NS(*) 0.9% 100 ML BAG 100 ML IVPB PRN (11:18)
[2017-12-04 11:29] VITALS: BP 140/78
[2017-12-04 11:53] VITALS: BP 138/78
[2017-12-05] MEDS: NS 0.9% IVPB SCH (11:15)
[2017-12-05] MEDS: DAPTOMYCIN IVPB SCH (11:15)
[2017-12-05] MEDS: NS(*) 0.9% 100 ML BAG 100 ML IVPB PRN (11:15)
[2017-12-05 11:31] VITALS: BP 136/93
[2017-12-06] MEDS: DAPTOMYCIN IVPB SCH (11:17)
[2017-12-06] MEDS: NS 0.9% IVPB SCH (11:17)
[2017-12-06] MEDS: NS(*) 0.9% 100 ML BAG 100 ML IVPB PRN (11:18)
[2017-12-06 11:28] VITALS: BP 129/87
[2017-12-07 12:23] VITALS: BP 139/95
[2017-12-07] MEDS: NS(*) 0.9% 100 ML BAG 100 ML IVPB PRN (12:40)
[2017-12-07] MEDS: NS 0.9% IVPB SCH (12:41)
[2017-12-07] MEDS: DAPTOMYCIN IVPB SCH (12:41)
[2017-12-08] MEDS: NS(*) 0.9% 100 ML BAG 100 ML IVPB PRN (10:54)
[2017-12-08] MEDS: NS 0.9% IVPB SCH (11:06)
[2017-12-08] MEDS: DAPTOMYCIN IVPB SCH (11:06)
[2017-12-08 11:16] VITALS: BP 133/103
[2017-12-08 11:52] VITALS: BP 134/93
[2017-12-08 12:36] LABS: PLATELET COUNT, AUTOMATED 390 K/uL (150-450)
[2017-12-09 11:03] VITALS: BP 123/93
[2017-12-09] MEDS: NS(*) 0.9% 100 ML BAG 100 ML IVPB PRN (11:11)
[2017-12-09] MEDS: NS 0.9% IVPB SCH (11:11)
[2017-12-09] MEDS: DAPTOMYCIN IVPB SCH (11:11)
[2017-12-09 11:49] VITALS: BP 134/80
[2017-12-10] MEDS: NS(*) 0.9% 100 ML BAG 100 ML IVPB PRN (11:05)
[2017-12-10] MEDS: NS 0.9% IVPB SCH (11:05)
[2017-12-10] MEDS: DAPTOMYCIN IVPB SCH (11:05)
[2017-12-10 11:40] VITALS: BP 140/103
[2017-12-11] MEDS: DAPTOMYCIN IVPB SCH (10:49)
[2017-12-11] MEDS: NS(*) 0.9% 100 ML BAG 100 ML IVPB PRN (10:49)
[2017-12-11] MEDS: NS 0.9% IVPB SCH (10:49)
[2017-12-11 10:53] VITALS: BP 134/97
[2017-12-12] MEDS: DAPTOMYCIN IVPB SCH (10:00)
[2017-12-12] MEDS: NS 0.9% IVPB SCH (10:00)
[2017-12-13 10:31] VITALS: BP 120/78
[2017-12-13] MEDS: NS 0.9% IVPB SCH (11:05)
[2017-12-13] MEDS: DAPTOMYCIN IVPB SCH (11:05)
[2017-12-13 11:40] VITALS: BP 117/70
[2017-12-14] MEDS: DAPTOMYCIN IVPB SCH (10:59)
[2017-12-14] MEDS: NS 0.9% IVPB SCH (10:59)
[2017-12-14] MEDS: NS(*) 0.9% 100 ML BAG 100 ML IVPB PRN (10:59)
[2017-12-14 11:00] LABS: PLATELET COUNT, AUTOMATED 561 K/uL (150-450)
[2017-12-14 11:49] VITALS: BP 131/81
[2017-12-15 11:07] VITALS: BP 119/85
[2017-12-15] MEDS: NS 0.9% IVPB SCH (11:11)
[2017-12-15] MEDS: DAPTOMYCIN IVPB SCH (11:11)
[2017-12-16 11:02] VITALS: BP 119/82
[2017-12-16] MEDS: NS 0.9% IVPB SCH (11:17)
[2017-12-16] MEDS: NS(*) 0.9% 100 ML BAG 100 ML IVPB PRN (11:17)
[2017-12-16] MEDS: DAPTOMYCIN IVPB SCH (11:17)
[2017-12-17 09:33] VITALS: BP 130/98
[2017-12-17] MEDS: DAPTOMYCIN IVPB SCH (09:53)
[2017-12-17] MEDS: NS(*) 0.9% 100 ML BAG 100 ML IVPB PRN (09:53)
[2017-12-17] MEDS: NS 0.9% IVPB SCH (09:53)
[2017-12-18 09:02] VITALS: BP 138/99
[2017-12-18] MEDS: NS 0.9% IVPB SCH (09:25)
[2017-12-18] MEDS: DAPTOMYCIN IVPB SCH (09:25)
[2017-12-18] MEDS: NS(*) 0.9% 100 ML BAG 100 ML IVPB PRN (09:26)
[2017-12-19] MEDS: NS(*) 0.9% 100 ML BAG 100 ML IVPB PRN (11:00)
[2017-12-19] MEDS: NS 0.9% IVPB SCH (11:00)
[2017-12-19] MEDS: DAPTOMYCIN IVPB SCH (11:00)
[2017-12-19 11:01] VITALS: BP 115/87
[2017-12-20] MEDS: NS 0.9% IVPB SCH (10:00)
[2017-12-20] MEDS: DAPTOMYCIN IVPB SCH (10:00)
[~2017-12-20 10:45] MED LIST changes: +ALTEPLASE RECOMB 2 MG VIAL IVP PRN; -AMLO-111 PO; +AMLO-125 PO; +DEXTROSE 5%(*) 100 ML BAG 100 ML IVPB PRN; +NS(*) 0.9% 500 ML BAG 500 ML IV PRN; +WATER FOR INJ,STERILE 20 ML IVP PRN
[2017-12-20 12:04] VITALS: BP 114/83
[2017-12-30] MEDS ORDERED: FOLI-68 PO (10:26)
[2017-12-30] MEDS ORDERED: OXYB5TAB86 PO (10:26)
[2017-12-30] MEDS ORDERED: CEPH500T7 PO (10:26)
[2017-12-30] MEDS ORDERED: APIX5TAB PO (10:26)
[2017-12-30] MEDS ORDERED: CYAN1000 IJ (10:26)
[2017-12-30] MEDS ORDERED: METO50TA19 PO (10:26)
[2017-12-30] MEDS ORDERED: CITA-155 PO (10:26)
[2017-12-30] MEDS ORDERED: ASPI81TA94 PO (10:26)
[2017-12-30] MEDS ORDERED: OXYB15TA14 PO (10:26)
[2017-12-30] MEDS ORDERED: CHOL10005 PO (10:26)
[2017-12-30] MEDS ORDERED: SPIR50TA33 PO (10:26)
[2017-12-30] MEDS ORDERED: ONDA4TAB97 PO (10:26)
[2017-12-30] MEDS ORDERED: TRIA15CR40 TP (10:26)
[2017-12-30] MEDS ORDERED: RIFA300C50 PO (10:26)
[2017-12-30] MEDS ORDERED: NYSTATIN SWISH PO (12:28)
[2017-12-30] MEDS ORDERED: LOPE2CAP15 PO (14:09)
[2017-12-30] MEDS ORDERED: CALC-734 PO (14:09)
[2018-01-03] MEDS ORDERED: DICY20TA70 PO (10:26)
[2018-01-03] MEDS ORDERED: ONDA4TAB97 PO (10:26)
[2018-01-15] MEDS ORDERED: CEFU500T10 PO (00:29)
== END 2018-02-20 ==
LOC: SPU 10:45
PROVIDERS: ATTEND Nurse Practitioner Family
DX: L03.115 Cellulitis of right lower limb (principal); K50.818 Crohn's disease of both small and large intestine with other complication; E63.9 Nutritional deficiency, unspecified; I50.9 Heart failure, unspecified; E83.52 Hypercalcemia; M79.18 Myalgia, other site; I48.2 Chronic atrial fibrillation; M45.9 Ankylosing spondylitis of unspecified sites in spine; S90.822A Blister (nonthermal), left foot, initial encounter
CPT/HCPCS: 82550; 83880; 85025; 93005; 96365; 96366; J0878; J1642; J7050; 36592; 82040; 82247; 82310; 82374; 82435; 82565; 82947; 84075; 84132; 84155; 84295; 84450; 84460; 84520; 85651; 86140

== ENCOUNTER → 2017-12-28 | Outpatient (CLI) | payer MEDICARE, OTHER ==
[2013-11-20 12:16] VITALS: BMI 32.5
[~2017-12-28] MED LIST changes: -ALTEPLASE RECOMB 2 MG VIAL IVP PRN; +AMLO-111 PO; -AMLO-125 PO; +APIX5TAB PO; +ASPI81TA94 PO; +CALC-734 PO; +CEPH500T7 PO; +CHOL10005 PO; +CITA-155 PO; +CYAN1000 IJ; -DEXTROSE 5%(*) 100 ML BAG 100 ML IVPB PRN; +FOLI-68 PO; +LOPE2CAP15 PO; +METO50TA19 PO; -NS(*) 0.9% 500 ML BAG 500 ML IV PRN; +NYSTATIN SWISH PO; +ONDA4TAB97 PO; +OXYB15TA14 PO; +OXYB5TAB86 PO; +RIFA300C50 PO; +SPIR50TA33 PO; +TRIA15CR40 TP; -WATER FOR INJ,STERILE 20 ML IVP PRN
== END ==
LOC: LAB 12:55
PROVIDERS: ATTEND Nurse Practitioner Family
DX: R77.0 Abnormality of albumin (principal); M45.9 Ankylosing spondylitis of unspecified sites in spine; M45.0 Ankylosing spondylitis of multiple sites in spine; E03.9 Hypothyroidism, unspecified; I10 Essential (primary) hypertension; I48.2 Chronic atrial fibrillation; I50.9 Heart failure, unspecified; K50.818 Crohn's disease of both small and large intestine with other complication; E55.9 Vitamin D deficiency, unspecified; E11.9 Type 2 diabetes mellitus without complications; L98.9 Disorder of the skin and subcutaneous tissue, unspecified; R29.6 Repeated falls; E83.52 Hypercalcemia; E21.3 Hyperparathyroidism, unspecified; E87.6 Hypokalemia; E61.1 Iron deficiency; D50.9 Iron deficiency anemia, unspecified; E63.9 Nutritional deficiency, unspecified; E88.09 Other disorders of plasma-protein metabolism, not elsewhere classified; D51.0 Vitamin B12 deficiency anemia due to intrinsic factor deficiency; Z85.46 Personal history of malignant neoplasm of prostate; D53.0 Protein deficiency anemia; E78.00 Pure hypercholesterolemia, unspecified
CPT/HCPCS: 36415; 82040; 82247; 82310; 82374; 82435; 82550; 82565; 82607; 82746; 82947; 83036; 83880; 84075; 84132; 84155; 84207; 84295; 84443; 84450; 84460; 84520; 84550; 85027; 85651

== ENCOUNTER 2017-12-30 09:29 | Inpatient (IN) | payer MEDICARE, OTHER ==
[~2017-12-30] VITALS: Ht 182.9 cm; Wt 98.9 kg
[~2017-12-30 09:29] MED LIST changes: -AMLO-111 PO; +AMLO-125 PO; -APIX5TAB PO; -ASPI81TA94 PO; -CALC-734 PO; -CEPH500T7 PO; -CHOL10005 PO; -CITA-155 PO; -CYAN1000 IJ; -FOLI-68 PO; -LOPE2CAP15 PO; -METO50TA19 PO; -NYSTATIN SWISH PO; -ONDA4TAB97 PO; -OXYB15TA14 PO; -OXYB5TAB86 PO; -RIFA300C50 PO; -SPIR50TA33 PO; -TRIA15CR40 TP
[2017-12-30] MEDS ORDERED: ONDANSETRON 4 MG/2 ML VIAL IVP ONE ×2 (10:20→11:50)
[2017-12-30] MEDS ORDERED: FAMOTIDINE(*) 20MG/50ML PREMIX 50 ML IVPB ONE (10:20)
[2017-12-30] MEDS ORDERED: NS(*) 0.9% 500 ML BAG 500 ML IV ONE ×2 (10:20→11:45)
[2017-12-30] MEDS ORDERED: fentaNYL CITR 100 MCG/2 ML AMP IVP ONE (10:20)
[2017-12-30] MEDS ORDERED: OXYB15TA14 PO (10:26)
[2017-12-30] MEDS ORDERED: APIX5TAB PO (10:26)
[2017-12-30] MEDS ORDERED: CEPH500T7 PO (10:26)
[2017-12-30] MEDS ORDERED: CITA-155 PO (10:26)
[2017-12-30] MEDS ORDERED: FOLI-68 PO (10:26)
[2017-12-30] MEDS ORDERED: CYAN1000 IJ (10:26)
[2017-12-30] MEDS ORDERED: ASPI81TA94 PO (10:26)
[2017-12-30] MEDS ORDERED: RIFA300C50 PO (10:26)
[2017-12-30] MEDS ORDERED: METO50TA19 PO (10:26)
[2017-12-30] MEDS ORDERED: TRIA15CR40 TP (10:26)
[2017-12-30] MEDS ORDERED: OXYB5TAB86 PO (10:26)
[2017-12-30] MEDS ORDERED: SPIR50TA33 PO (10:26)
[2017-12-30] MEDS ORDERED: CHOL10005 PO (10:26)
[2017-12-30] MEDS ORDERED: ONDA4TAB97 PO (10:26)
[2017-12-30 10:27] LABS: PLATELET COUNT, AUTOMATED 348 K/uL (150-450)
[2017-12-30 10:31] LABS: INR 1.14
[2017-12-30] MEDS ORDERED: IOPAMIDOL 76% 75 ML INFUS BTL 75 ML ONE (10:50)
--- NOTE | 2017-12-30 10:50 | ER Report ---
History and Physical Time Seen By MD: 10:30 Hx. of Stated Complaint: N/V/D WEAK FAST HEART RATE HPI/ROS CHIEF COMPLAINT: Nausea, vomiting, diarrhea, weakness HISTORY OF PRESENT ILLNESS: Patient is a 77-year-old male who is brought to the emergency department for evaluation of nausea vomiting and diarrhea over the past 3-4 days. Patient is currently on both cephalexin and rifampin after completing a course of intravenous antibiotics for a infection to his right lower extremity that had a fracture repair done in June 2017. Patient states that he is doing well with regard to the leg and family confirms this. Because the patient has been vomiting he has not had his antibiotics for the last 24 hours. Includes rifampin as well as cephalexin. Patient denies any chest pain or shortness of breath. He is having numerous episodes of postprandial vomiting along with watery diarrhea. He denies any recent travel history but again he has been on antibiotics REVIEW OF SYSTEMS: Constitutional: No fever, no chills. Generalized weakness Eyes: No discharge. ENT: No sore throat. Cardiovascular: No chest pain, no palpitations. Respiratory: No cough, no shortness of breath. Gastrointestinal: Nausea, vomiting, diarrhea and diffuse abdominal pain Genitourinary: No hematuria. Musculoskeletal: No back pain. Skin: No rashes. Neurological: No headache. Allergies: Coded Allergies: Soap (Verified Allergy, Intermediate, BLISTERS, 12/30/17) povidone-iodine (Verified Allergy, Intermediate, BLISTERS, 12/30/17) Home Meds Reported Medications Triamcinolone Acetonide 0.1% Cr 15 Gm Tube (TRIAMCINOLONE ACETONIDE 0.1% CREAM) 15 Gm Cream..g., 15 GM TP BID, TUBE 12/30/17 Cholecalciferol (Vitamin D3) (VITAMIN D3) 1,000 Unit Tablet, 1000 UNIT PO QDAY, TAB 12/30/17 Ondansetron Hcl (ZOFRAN) 4 Mg Tablet, 4 MG PO Q6H PRN for NAUSEA, TAB 12/30/17 Rifampin (RIFAMPIN) 300 Mg Capsule, 300 MG PO BID, CAPSULE 12/30/17 Spironolactone (SPIRONOLACTONE) 50 Mg Tablet, 50 MG PO QDAY 12/30/17 Oxybutynin Chloride (OXYBUTYNIN CHLORIDE ER) 15 Mg Tab.er.24, 15 MG PO QDAY, TAB.SA 12/30/17 Oxybutynin Chloride (OXYBUTYNIN CHLORIDE) 5 Mg Tablet, 15 MG PO QDAY, TAB 12/30/17 Metoprolol Succinate (METOPROLOL SUCCINATE) 50 Mg Tab.er.24h, 4 TAB PO QDAY, TAB 12/30/17 Folic Acid (FOLIC ACID) 1 Mg Tablet, 1 MG PO QDAY, TAB 12/30/17 Apixaban (ELIQUIS) 5 Mg Tablet, 5 MG PO BID 12/30/17 Cyanocobalamin (Vitamin B-12) (CYANOCOBALAMIN INJECTION) 1,000 Mcg/1 Ml Vial, 1000 MCG IJ DIRECTED, VIAL 12/30/17 Cephalexin 500 Mg Tab (KEFLEX 500 MG TAB) 500 Mg Tablet, 500 MG PO Q12H, #28 TAB 12/30/17 Citalopram Hydrobromide (CELEXA) 10 Mg Tablet, 10 MG PO QDAY, #5 TAB 12/30/17 Aspirin (ASPIRIN) 81 Mg Tab.chew, 81 MG PO QDAY, TAB.CHEW 12/30/17 Cholecalciferol (Vitamin D3) (VITAMIN D) 5,000 Unit Tablet, 5000 UNIT PO DAILY 11/14/15 Pantoprazole Sodium (PANTOPRAZOLE SODIUM) 40 Mg Tablet.dr, 1 TAB PO QDAY, TAB.SR 11/10/15 Iron (IRON) 18 Mg Tablet, 27 MG PO 11/03/15 Oxycodone Hcl/Acetaminophen (OXYCODONE-ACETAMINOPHEN 5-325) 1 Each Tablet, 1 EACH PO PRN, TAB 11/03/15 Adalimumab (HUMIRA) 40 Mg/0.8 Ml/Kit Kit, 40 MG SUBQ, KIT 02/22/14 Levothyroxine Sodium (LEVOTHYROXINE SODIUM) 75 Mcg Tablet, 75 MCG PO QDAY 02/22/14 Ascorbic Acid (VITAMIN C) 250 Mg Tablet, 250 MG PO QDAY 10/14/13 Loperamide Hcl (IMODIUM A-D) 1 Mg/7.5 Ml Liquid, 1 MG PO PRN 10/14/13 Lisinopril (LISINOPRIL) 20 Mg Tablet, 20 MG PO QDAY 04/12/13 Discontinued Reported Medications Folic Acid (FOLIC ACID) 20 Mg Capsule, 20 MG PO QDAY, CAPSULE 9/26/16 Oxybutynin Chloride (OXYBUTYNIN CHLORIDE ER) 10 Mg Tab.er.24, 10 MG PO QDAY, TAB.SR 11/03/15 Past Medical/Surgical History Past medical history for NSTEMI, history of atrial fibrillation on Eliquis; history of right femur fracture in June 2017 followed by subsequent wound infection and prolonged treatment with IV antibiotics. Currently now switched to oral antibiotics past medical history for reflux, hypertension hypothyroidism Hx Smoking: No Smoking Status: Never Smoker Hx Substance Use Disorder: No Hx Alcohol Use: No Constitutional Vital Sign - Last 24 Hours 12/30/17 12/30/17 12/30/17 12/30/17 09:29 09:36 09:45 09:45 Pulse 108 B/P (MAP) 131/91 (104) 137/100 (112) Pulse Ox 82 O2 Delivery Room Air O2 Flow Rate 4.0 12/30/17 12/30/17 12/30/17 12/30/17 09:46 09:59 10:00 10:15 Temp 98.0 Pulse 118 100 Resp 14 21 B/P (MAP) 137/100 134/99 (111) 136/99 (111) Pulse Ox 84 97 O2 Delivery Room Air Nasal Cannula O2 Flow Rate 4 12/30/17 12/30/17 12/30/17 12/30/17 10:29 10:30 10:35 10:45 Pulse 114 87 Resp 16 12 B/P (MAP) 131/99 (110) 138/93 (108) Pulse Ox 97 98 O2 Delivery Nasal Cannula Nasal Cannula O2 Flow Rate 4 4 12/30/17 12/30/17 12/30/17 12/30/17 11:00 11:05 11:15 11:20 Pulse 89 95 Resp 12 10 B/P (MAP) 146/99 (115) 148/101 (117) Pulse Ox 96 99 O2 Delivery Nasal Cannula Nasal Cannula O2 Flow Rate 4 4 12/30/17 12/30/17 12/30/17 11:30 11:50 12:00 Pulse 137 Resp 16 B/P (MAP) 137/85 (102) 150/110 (123) Pulse Ox 97 O2 Delivery Nasal Cannula O2 Flow Rate 4 Physical Exam General/Constitutional: Patient is awake, alert, nontoxic and in no acute respiratory distress. Head: Normocephalic and atraumatic. Eyes: Conjunctival clear, Pupils are equal and reactive to light. Extraocular muscles are intact and symmetrical. Sclera are clear and anicteric. Ears:External canals are clear. Tympanic membranes are clear with normal landmarks and light reflex. Nares: No rhinorrhea or bleeding. Turbinates are pink and moist. Oropharyngeal: Mucous membranes are moist. There is no pharyngeal erythema or exudate. There are no palatal petechiae. Uvula is midline and symmetrical. Neck: Supple, no adenopathy. Cardiovascular: Irregularly irregular slightly tachycardic Pulmonary: Lungs are clear to auscultation bilaterally. There are no wheezes, rales, or rhonchi. Chest rise is symmetrical Abdomen: Protuberant diffusely tender with increased bowel sounds Extremities: No gross deformities, No peripheral cyanosis. Able to move all 4 extremities. Skin: No rashes, skin is warm dry and well perfused. Medical Decision Making Data Points Result Diagram: 12/30/17 1006 12/30/17 1006 Laboratory Hematology Test 12/30/17 10:06 12/30/17 10:38 Red Blood Count 4.49 M/uL (4.00-5.60) Mean Corpuscular Volume 82.6 fL (80.0-96.0) Mean Corpuscular Hemoglobin 26.3 pg (26.0-33.0) Mean Corpuscular Hemoglobin Concent 31.8 g/dL (32.0-36.0) Red Cell Distribution Width 16.7 % (11.5-14.5) Mean Platelet Volume 6.8 fL (7.2-11.1) Neutrophils (%) (Auto) 63.2 % (39.4-72.5) Lymphocytes (%) (Auto) 22.2 % (17.6-49.6) Monocytes (%) (Auto) 10.1 % (4.1-12.4) Eosinophils (%) (Auto) 3.3 % (0.4-6.7) Basophils (%) (Auto) 1.2 % (0.3-1.4) Nucleated RBC Relative Count (auto) 0.1 /100WBC Neutrophils # (Auto) 2.8 K/uL (2.0-7.4) Lymphocytes # (Auto) 1.0 K/uL (1.3-3.6) Monocytes # (Auto) 0.4 K/uL (0.3-1.0) Eosinophils # (Auto) 0.1 K/uL (0.0-0.5) Basophils # (Auto) 0.1 K/uL (0.0-0.1) Nucleated RBC Absolute Count (auto) 0.00 K/uL Prothrombin Time 14.7 seconds (12.0-14.4) Prothromb Time International Ratio 1.14 Activated Partial Thromboplast Time 44 seconds (23-35) Sodium Level 139 mmol/L (137-145) Potassium Level 3.8 mmol/L (3.5-5.0) Chloride Level 96 mmol/L (98-107) Carbon Dioxide Level 37 mmol/L (22-30) Blood Urea Nitrogen 14 mg/dl (9-21) Creatinine 1.10 mg/dl (0.66-1.25) Glomerular Filtration Rate Calc > 60.0 Random Glucose 93 mg/dl (75-110) Calcium Level 8.7 mg/dl (8.4-10.2) Total Bilirubin 0.4 mg/dl (0.2-1.3) Aspartate Amino Transf (AST/SGOT) 16 U/L (0-35) Alanine Aminotransferase (ALT/SGPT) 21 U/L (0-56) Alkaline Phosphatase 133 U/L (0-126) Total Protein 6.3 g/dl (6.3-8.2) Albumin 2.9 g/dl (3.5-5.0) Lipase < 10 U/L (23-300) Lactate 1.5 mmol/L (0.7-2.1) Chemistry Test 12/30/17 10:06 12/30/17 10:38 White Blood Count 4.4 k/uL (4.5-11.0) Red Blood Count 4.49 M/uL (4.00-5.60) Hemoglobin 11.8 g/dL (14.0-18.0) Hematocrit 37.0 % (42.0-52.0) Mean Corpuscular Volume 82.6 fL (80.0-96.0) Mean Corpuscular Hemoglobin 26.3 pg (26.0-33.0) Mean Corpuscular Hemoglobin Concent 31.8 g/dL (32.0-36.0) Red Cell Distribution Width 16.7 % (11.5-14.5) Platelet Count 348 K/uL (150-450) Mean Platelet Volume 6.8 fL (7.2-11.1) Neutrophils (%) (Auto) 63.2 % (39.4-72.5) Lymphocytes (%) (Auto) 22.2 % (17.6-49.6) Monocytes (%) (Auto) 10.1 % (4.1-12.4) Eosinophils (%) (Auto) 3.3 % (0.4-6.7) Basophils (%) (Auto) 1.2 % (0.3-1.4) Nucleated RBC Relative Count (auto) 0.1 /100WBC Neutrophils # (Auto) 2.8 K/uL (2.0-7.4) Lymphocytes # (Auto) 1.0 K/uL (1.3-3.6) Monocytes # (Auto) 0.4 K/uL (0.3-1.0) Eosinophils # (Auto) 0.1 K/uL (0.0-0.5) Basophils # (Auto) 0.1 K/uL (0.0-0.1) Nucleated RBC Absolute Count (auto) 0.00 K/uL Prothrombin Time 14.7 seconds (12.0-14.4) Prothromb Time International Ratio 1.14 Activated Partial Thromboplast Time 44 seconds (23-35) Glomerular Filtration Rate Calc > 60.0 Calcium Level 8.7 mg/dl (8.4-10.2) Total Bilirubin 0.4 mg/dl (0.2-1.3) Aspartate Amino Transf (AST/SGOT) 16 U/L (0-35) Alanine Aminotransferase (ALT/SGPT) 21 U/L (0-56) Alkaline Phosphatase 133 U/L (0-126) Total Protein 6.3 g/dl (6.3-8.2) Albumin 2.9 g/dl (3.5-5.0) Lipase < 10 U/L (23-300) Lactate 1.5 mmol/L (0.7-2.1) Coagulation Test 12/30/17 10:06 Prothrombin Time 14.7 seconds Prothromb Time International Ratio 1.14 Activated Partial Thromboplast Time 44 seconds EKG/Imaging EKG Interpretation EKG shows atrial fibrillation with a ventricular rate of 92 bpm and a nonspecific intraventricular block Monitor Interpretation: Atrial Fibrillation (with RVR) ED Course/Re-evaluation Clinical Indication for ER IV: IV Access ED Course 12/30/2017 11:29:55 am After history and physical exam was performed differential diagnosis was formulated which includes but is not limited to gastroenteritis, small bowel obstruction, C. difficile colitis plan at this time will be abdominal workup with CT scan of the abdomen and pelvis we'll also try to obtain stool cultures for analysis. We'll give IV hydration along with IV Zofran. We'll also give dose of IV antibiotics while patient is here. 12/30/2017 12:00:[address] scan showing a small bowel obstruction patient is continuing to have emesis I will re-dose Zofran but place NG tube. Case was discussed with Dr. Fair who is the on-call surgeon. He has agreed to accept the patient at this time. Decision to Disposition Date: Dec 30, 2017 Decision to Disposition Time: 12:01 Depart Departure Latest Vital Signs Vital Signs Date Time Temp Pulse Resp B/P (MAP) Pulse Ox O2 Delivery O2 Flow Rate FiO2 12/30/17 12:00 150/110 (123) 12/30/17 11:50 137 16 97 Nasal Cannula 4 12/30/17 09:46 98.0 Impression: Primary Impression: Small bowel obstruction Condition: Condition Unchanged Disposition: Admitted from ER (to DR Fair) Referrals: COCO LUCIA (PCP) LILIANA RUBALCAVA MD Dec 30, 2017 10:50
--- NOTE | 2017-12-30 10:50 | EKG ---
FAC[place] [facility] [place]IENT NAME: JORGE VILLATORO : [id number] MR: [id number] V: [id number] EXAM DATE: ORDERING PHYSICIAN: LILIANA RUBALCAVA TECHNOLOGIST: JEFE Test Reason : HEART RACING Blood Pressure : / mmHG Vent. Rate : 092 BPM Atrial Rate : 102 BPM P-R Int : 000 ms QRS Dur : 128 ms QT Int : 388 ms P-R-T Axes : 000 -51 081 degrees QTc Int : 479 ms Atrial fibrillation Left axis deviation Nonspecific intraventricular block Abnormal ECG When compared with ECG of 30-DEC-2017 09:41, QRS duration has increased ST no longer depressed in Inferior leads ST no longer depressed in Anterior leads Nonspecific T wave abnormality, improved in Lateral leads Confirmed by JOSE DIAMOND ([id number]) on 12/30/2017 6:35:47 PM Referred By: GINI Confirmed By:JOSE DIAMOND
[2017-12-30] MEDS ORDERED: cefTRIAXone 1 GM VIAL IVP ONE (11:30)
--- NOTE | 2017-12-30 11:52 | RADIOLOGY IMAGING REPORT ---
FACILITY: [facility] PATIENT NAME: Wolf Camacho : 1940 MR: [id number] V: [id number] EXAM DATE: ORDERING PHYSICIAN: LILIANA RUBALCAVA TECHNOLOGIST: Location: [facility] Patient: Wolf Camacho : 1940 Visit/Account:[id number] Date of Sevice: 12/30/2017 ABDOMEN/PELVIS WITH CONTRAST HISTORY: Nausea, vomiting, abdominal pain TECHNIQUE: CT abdomen and pelvis with intravenous contrast. Contiguous axial images of the abdomen and pelvis was performed from the lung bases to the symphysis pubis. One of the following dose optimization techniques was utilized in the performance of this exam: Autom ated exposure control; adjustment of the mA and/or kV according to the patient's size; or use of an i terative reconstruction technique. Specific details can be referenced in the facility's radiology C T exam operational policy. CONTRAST: 75 cc of [id number] COMPARISON: None. FINDINGS: Visualized lung bases: There are small bilateral pleural effusions. Patient has a small hiatal herni a. Heart is enlarged and there is calcification of the aortic valve and mitral valve Hepatobiliary: Gallbladder is distended but not inflamed. Bile ducts are decompressed. Spleen: Negative. Adrenals: Negative. Kidneys/: Radiation seeds are noted the prostate gland. Pancreas: Negative. GI: Patient appears to have a distal small bowel obstruction. Transition point in the distal ileum i s noted on axial image 84 and coronal image 42. The obstruction is likely on the basis of adhesions. The colon is decompressed. Some of the proximal dilated small bowel loops have some soft tissue material within them presumably food. Soft tissue nodules although not excluded are felt to be less likely. Short segment of pneumato sis of the small bowel in the left upper quadrant is noted. No definite mesenteric venous gas or port al venous gas. Recommend surgical consultation for management. Vessels/spaces/nodes: Small amount of ascites is noted. The abdominal aorta is markedly ectatic and atherosclerotic. Bones/soft tissues: Patient has a scoliosis with degenerative changes. Epidural pain stimulator is n oted in the lower thoracic spinal canal. IMPRESSION: 1. Distal small bowel obstruction likely on the basis of adhesions. Focal transition point is noted in the distal ileum. Proximal small bowel loops are markedly dilated and fluid-filled. Short segment of small bowel pneumatosis is noted left upper quadrant. No gross free air or portal venous gas. Smal l amount of free fluid is noted. Recommend surgical consultation for management. 2. Small bilateral pleural effusions. Results were called to LILIANA RUBALCAVA at 12/30/2017 11:46 AM. Report Dictated By: Cooper Tsai MD at 12/30/2017 11:27 AM Report E-Signed By: Cooper Tsai MD at 12/30/2017 11:47 AM WSN:[id number]
[2017-12-30] MEDS ORDERED: NYSTATIN SWISH PO (12:28)
[2017-12-30] MEDS ORDERED: NALOXONE HCL 0.4 MG/ML VIAL IVP PRN (12:30)
--- NOTE | 2017-12-30 12:56 | Gen Surgery History & Physical ---
History of Present Illness Chief Complaint Nausea, vomiting and diarrhea History of Present Illness Mr. Wolf Camacho is a 77 year old male with a history of Crohn disease, on Humira, who presents with approximately 48 hours of recurrent nausea, vomiting and diarrhea. The patient reports a recent history of right femur fracture which was operatively repaired. His recovery from this has been complicated by a joint infection requiring prolonged antibiotic therapy with IV and now oral antibiotics. He states that since starting oral antibiotics recently he has had increasing difficulty with bowel activity. Now approximately 48 hours ago, the p atient began having profuse, watery diarrhea. This has been without apparent blood or mucous per patient report. He denies associated fevers or chills. He has had subsequent onset of diffuse abdominal pain and vomiting. The patient reports this suite of symptoms is different from his prior Crohn disease flares. He ultimately presented to the [facility] Emergency Department due to an inability to tolerate PO liquids or solids. Work up in the ED included a CT scan of the abdomen suggestive of small bowel obstruction. History Home Meds Reported Medications [Nystatin Swish] No Conflict Check, 625090 UNIT PO BID 12/30/17 Triamcinolone Acetonide 0.1% Cr 15 Gm Tube (TRIAMCINOLONE ACETONIDE 0.1% CREAM) 15 Gm Cream..g., 15 GM TP BID, TUBE 12/30/17 Cholecalciferol (Vitamin D3) (VITAMIN D3) 1,000 Unit Tablet, 1000 UNIT PO QDAY, TAB 12/30/17 Ondansetron Hcl (ZOFRAN) 4 Mg Tablet, 4 MG PO Q6H PRN for NAUSEA, TAB 12/30/17 Rifampin (RIFAMPIN) 300 Mg Capsule, 300 MG PO BID, CAPSULE 12/30/17 Spironolactone (SPIRONOLACTONE) 50 Mg Tablet, 50 MG PO QDAY 12/30/17 Oxybutynin Chloride (OXYBUTYNIN CHLORIDE ER) 15 Mg Tab.er.24, 15 MG PO QDAY, TAB.SA 12/30/17 Oxybutynin Chloride (OXYBUTYNIN CHLORIDE) 5 Mg Tablet, 15 MG PO QDAY, TAB 12/30/17 Metoprolol Succinate (METOPROLOL SUCCINATE) 50 Mg Tab.er.24h, 4 TAB PO QDAY, TAB 12/30/17 Folic Acid (FOLIC ACID) 1 Mg Tablet, 1 MG PO QDAY, TAB 12/30/17 Apixaban (ELIQUIS) 5 Mg Tablet, 5 MG PO BID 12/30/17 Cyanocobalamin (Vitamin B-12) (CYANOCOBALAMIN INJECTION) 1,000 Mcg/1 Ml Vial, 1000 MCG IJ DIRECTED, VIAL 12/30/17 Cephalexin 500 Mg Tab (KEFLEX 500 MG TAB) 500 Mg Tablet, 500 MG PO Q12H, #28 TAB 12/30/17 Citalopram Hydrobromide (CELEXA) 10 Mg Tablet, 10 MG PO QDAY, #5 TAB 12/30/17 Aspirin (ASPIRIN) 81 Mg Tab.chew, 81 MG PO QDAY, TAB.CHEW 12/30/17 Cholecalciferol (Vitamin D3) (VITAMIN D) 5,000 Unit Tablet, 5000 UNIT PO DAILY 11/14/15 Pantoprazole Sodium (PANTOPRAZOLE SODIUM) 40 Mg Tablet.dr, 1 TAB PO QDAY, TAB.SR 11/10/15 Iron (IRON) 18 Mg Tablet, 27 MG PO 11/03/15 Oxycodone Hcl/Acetaminophen (OXYCODONE-ACETAMINOPHEN 5-325) 1 Each Tablet, 1 EACH PO PRN, TAB 11/03/15 Adalimumab (HUMIRA) 40 Mg/0.8 Ml/Kit Kit, 40 MG SUBQ, KIT 02/22/14 Levothyroxine Sodium (LEVOTHYROXINE SODIUM) 75 Mcg Tablet, 75 MCG PO QDAY 02/22/14 Ascorbic Acid (VITAMIN C) 250 Mg Tablet, 250 MG PO QDAY 10/14/13 Loperamide Hcl (IMODIUM A-D) 1 Mg/7.5 Ml Liquid, 1 MG PO PRN 10/14/13 Lisinopril (LISINOPRIL) 20 Mg Tablet, 20 MG PO QDAY 04/12/13 Discontinued Reported Medications Folic Acid (FOLIC ACID) 20 Mg Capsule, 20 MG PO QDAY, CAPSULE 11/03/15 Oxybutynin Chloride (OXYBUTYNIN CHLORIDE ER) 10 Mg Tab.er.24, 10 MG PO QDAY, TAB.SR 11/03/15 Allergies: Coded Allergies: Soap (Verified Allergy, Intermediate, BLISTERS, 12/30/17) povidone-iodine (Verified Allergy, Intermediate, BLISTERS, 12/30/17) Patient History: Patient reports no known family medical history. Review of Systems All Systems Reviewed/Normal: Yes, Except as Noted Constitutional: No Fever, No Weight Loss, No Weight Gain, No Chills, No Night Sweats, No Other Neurological: No Syncope, No Confusion, No Weakness, No Dizziness, No Slurred Speech, No Other Cardiovascular: Palpitations (Known atrial fibrillation) Respiratory: No Shortness of Breath, No Cough, No Wheezing, No Other Gastrointestinal: Nausea, Vomiting, Diarrhea, Abdominal Pain Genitourinary: No Dysuria, No Hematuria, No Urinary Incontinence, No Other Musculoskeletal: Pain; No Sprain, No Strain, No Impaired Mobility, No Other Exam General Appearance: Alert, Awake, No Acute Distress, Afebrile Neuro: No Gross deficits Eyes: PERRLA ENT: Moist Mucous Membranes Cardiovascular: Other (Tachycardic rate, irregularly irregular rhythm. No M/R/G. Normal palpable peripheral pulses. ) Respiratory: Clear to Auscultation GI: Other (Softly distended, diffusely tender to palpation without rebound tenderness or guarding. No palpable solid or pulsatile abdominal masses. Normoactive bowel sounds. ) Lymph: No Adenopathy Extremities: Warm, Edema (Pitting bilateral lower extremity edema) Integumentary: Skin Intact without Lesion / Mass Psych: Alert & Oriented X3 Medical Decision Making Data Points Result Diagram: 12/30/17 1006 12/30/17 1006 EKG / Imaging Monitor Interpretation: Atrial Fibrillation Pre-Admit Course Medical Record Review: Yes Assessment and Plan Problems: (1) Small bowel obstruction, partial Status: Acute Assessment & Plan: Patient with CT scan suggestive of possible small bowel obstruction. In light of prolonged antibiotic use will test patient for possible Clostridium difficile infection. 1. Admit for bowel rest with NG tube decompression 2. IV fluid resuscitation 3. Repeat CBC and BMP in AM 4. Obtain stool sample for C diff testing 5. PRN antiemetics 6. Will hold outpatient antibiotics for now 7. PT/OT evaluations while inpatient (2) CHRONIC ATRIAL FIBRILLATION Status: Chronic Assessment & Plan: Chronic atrial fibrillation on anticoagulation 1. Obtain baseline ECG 2. Hold PO anticoagulation for now 3. Convert PO metoprolol to IV 4. Cardiac monitoring while inpatient Time Spent: > 30 min Venous Thromboembolism VTE Risk Physician Assess for VTE Risk: Yes Patient's VTE Risk: High VTE Diagnostic Test 2 Days Prior to Admit: No Antithrombotics Is Pt On Any Antithrombotics?: Yes TEN MONTANEZ MD Dec 30, 2017 12:46
[2017-12-30] MEDS ORDERED: hydrALAZINE HCL 20 MG/ML VIAL IVP PRN (13:10)
--- NOTE | 2017-12-30 13:35 | NUR ---
Physical Therapy Impression PT eval completed with PT observing pt ambulate from BR back to bed with nursing, utilizing no assistive device for short distance. PT recommends FWW in hallways to optimize safety with currently level of generalized weakness. Subjective portion of eval completed with chart review and pt/CG discussion for goal setting. Pt notes 2 steps to enter home, and states that he does use a walking stick at times for assistance to ensure safety. Physical Therapy Goals 1. Pt to tolerate ambulation with least restrictive device x 150' with SBA/Modified indep 2. Pt to be modified indep with bed mobility and supine to/from sit transfers 3. Pt to be modified indep with sit to/from stand transfers 4. Pt to stephanie up/down platform step x 2 reps with Modified indep/SBA Patient's Goals
[2017-12-30 13:36] VITALS: BP 155/99
[2017-12-30] MEDS: MORPHINE 2 MG/ML SYR IVP PRN ×2 (13:42→15:57)
[2017-12-30] MEDS ORDERED: LOPE2CAP15 PO (14:09)
[2017-12-30] MEDS ORDERED: CALC-734 PO (14:09)
[2017-12-30] MEDS: LR(*) 1000 ML BAG 1,000 ML IV PRN (15:02)
[2017-12-30] MEDS: ONDANSETRON 4 MG/2 ML VIAL IVP PRN (15:57)
[2017-12-30 16:49] VITALS: BP 137/94
[2017-12-30] MEDS: ACETAMINOPHEN(*)1000 MG/100 ML 100 ML IVPB SCH (16:51)
[2017-12-30] MEDS: METOPROLOL TART 5 MG/5 ML VIAL IVP SCH ×2 (17:21→23:48)
[2017-12-30 19:21] VITALS: BP 131/84
[2017-12-30] MEDS: HEPARIN (PORC) 5000 UN/ML VIAL SC SCH (21:36)
[2017-12-30 23:48] VITALS: BP 139/99
[2017-12-31] VITALS (10 sets, daily range): BP systolic 125–150; BP diastolic 88–119; Ht 182.9 cm; Wt 98.9 kg
[2017-12-31] MEDS: MORPHINE 2 MG/ML SYR IVP PRN ×4 (00:34→16:05)
[2017-12-31] MEDS: ACETAMINOPHEN(*)1000 MG/100 ML 100 ML IVPB SCH ×3 (00:35→17:49)
[2017-12-31] MEDS: LR(*) 1000 ML BAG 1,000 ML IV PRN (05:20)
[2017-12-31] MEDS: METOPROLOL TART 5 MG/5 ML VIAL IVP SCH ×4 (05:34→23:55)
[2017-12-31 06:08] LABS: PLATELET COUNT, AUTOMATED 299 K/uL (150-450)
[2017-12-31] MEDS ORDERED: LR(*) 1000 ML BAG 1,000 ML IV PRN (06:30)
[2017-12-31] MEDS ORDERED: D5W(*) 1000 ML BAG 1,000 ML IV PRN (06:30)
[2017-12-31] MEDS: DLR(*) 1000 ML BAG 1,000 ML IV PRN ×2 (07:03→22:51)
[2017-12-31] MEDS ORDERED: MAGNESIUM SUL 50% 1GM/2ML VIAL IVP ONE (08:40)
[2017-12-31] MEDS: HEPARIN (PORC) 5000 UN/ML VIAL SC SCH ×2 (08:43→20:36)
[2017-12-31] MEDS ORDERED: LEVOTHYROXINE SOD 100 MCG VIAL IVP SCH (09:00)
[2017-12-31] MEDS ORDERED: CALCIUM GLUC(*)10% 100MG/ML VL 2,000 MG in NS(*) 0.9% 100 ML BAG 100 ML IVPB ONE (09:00)
[2017-12-31] MEDS ORDERED: PANTOPRAZOLE SOD 40 MG IV VIAL IVP SCH (09:00)
[2017-12-31] MEDS ORDERED: FOLIC ACID 50 MG/10 ML 1ML INJ IV ONE (09:00)
--- NOTE | 2017-12-31 10:23 | General Surgery Progress Note ---
Subjective Progress Notes Subjective Pain significantly improved this AM, now only c/o chronic back pain. No N/V O/N. Still with loose stools but gaining more solid consistency per pt. Hypoglycemia x1 this AM. Patient Complains of: Neurological: No: Syncope, Confusion, Weakness, Dizziness, Slurred Speech, Other Respiratory: No: Cough, Congestion, Shortness of Breath, Wheezing, Other Gastrointestinal: Nausea, Bowel Movement Genitourinary: No Dysuria, No Hematuria, No Urinary Incontinence, No Other Musculoskeletal: Pain (Back pain) Physical Exam Vital Signs Date Time Temp Pulse Resp B/P (MAP) Pulse Ox O2 Delivery O2 Flow Rate FiO2 12/31/17 08:38 91 134/88 (103) 96 Nasal Cannula 3.0 12/31/17 08:02 98.4 16 Intake and Output 12/31/17 06:59 Intake Total 1050 ml Output Total 50 ml Balance 1000 ml Intake IV Total 1050 ml Output Urine Total 50 ml # Voids 4 # Bowel Movements 5 General Appearance: Alert, Awake, No Acute Distress Neuro: No Gross deficits ENT: Moist Mucous Membranes Cardiovascular: Other (Irregularly irregular rate and normal rhythm. No appreciable M/R/G.) GI: Soft and Non-Tender, Other (Normoactive bowel sounds. No palpable masses. No rebound tenderness or guarding. ) Extremities: Soft and Non Tender, Edema (Pitting bilateral lower extremity edema.) Psych: Alert & Oriented X3 Result Diagram: 12/31/17 0540 12/31/17 0540 Monitor Interpretation: Atrial Fibrillation Assessment and Plan Problems: (1) Small bowel obstruction, partial Status: Acute Assessment & Plan: 12/30/17: Patient with CT scan suggestive of possible small bowel obstruction. In light of prolonged antibiotic use will test patient for possible Clostridium difficile infection. 1. Admit for bowel rest with NG tube decompression, 2. IV fluid resuscitation, 3. Repeat CBC and BMP in AM, 4. Obtain stool sample for C diff testing, 5. PRN antiemetics, 6. Will hold outpatient antibiotics for now, 7. PT/OT evaluations while inpatient 12/31/17: Patient overall feeling improved. Continues to have diarrhea but abdominal pain has resolved. C diff testing negative. Continue supportive care. OK for clears as tolerated. Encourage OOBTC and ambulation. Pulmonary toilet. Repeat labs in AM. Continue IVFs until diarrhea slows or resolves. Resume home loperamide. (2) CHRONIC ATRIAL FIBRILLATION Status: Chronic Assessment & Plan: 12/30/17: Chronic atrial fibrillation on anticoagulation 1. Obtain baseline ECG, 2. Hold PO anticoagulation for now, 3. Convert PO metoprolol to IV, 4. Cardiac monitoring while inpatient 12/31/17: Improved rate control with initiation of IV metoprolol. Continue to hold anticoagulation, can continue daily aspirin. Continue tele monitoring. (3) Hypocalcemia Status: Acute Assessment & Plan: Replete IV today with calcium gluconate 2g IV x1. Repeat Calcium in AM. (4) Hypoglycemia Status: Acute Assessment & Plan: Likely secondary to NPO status. Start PO intake with clears today. Change MIVF to D5LR until taking adequate PO. Continue to monitor. Time Spent: < 30 min Exam Sepsis Risk: No Definite Risk TEN MONTANEZ MD Dec 31, 2017 08:48
[2017-12-31] MEDS: LOPERAMIDE HCL 2 MG CAP PO PRN (10:34)
--- NOTE | 2017-12-31 12:11 | Medical Nutrition Therapy ---
Nutrition Anthropometrics Height (Inches): 72.00 Height (Calculated Centimeters: 182.610094 Weight (Pounds): 218 Weight (Calculated Kilograms): 98.883 Brock Nutrition Score: Probably Inadequate Brock Nutrition Risk Score: 16 Dietary Referral Nutrition Risk Factors: Nutrition Risk Comment: Physical Findings Physical Appearance: Obese BMI 30-39 Skin Appearance Skin Appearance: Edema Edema Location Modifier: Left Edema Location: Lower Extremity Type of Edema: Degree of Edema: 2+ Gastrointestinal Symptoms GI Symtoms: Nausea, Vomiting, Appetite Changes, Diarrhea Tube Present: Bowel Sounds: Recent Bowel Pattern: Diarrhea Stool Characteristics: Brown, Liquid, Green Nutritional Diagnosis Nutritional Risk Acuity 1: GI Obstruction Past Medical History: Crohn's Nutritional Acuity: 1-High Nutrition Diagnosis: Altered GI Function Nutrition Etiology: Physiological Causes Nutrition Problem/Etiology/Sym: Altered GI function related to physiological causes as evidenced by symptoms of N/V/Dm hx of crohn's and partial SBO. Energy Requirement: 2059 ([id number] (HB adj for obesity x 1.3-1.5)) Protein Requirement: 78 (78-98 (.8-1 g/kg actual BW)) Fluid Requirement: 1960 Diet Type: Clear Liquids Nutrition Intervention: Incr diet as tolerated Nutrition Monitoring & Eval RD Patient Assessment Time: [address] Assessment Type: RD Assessment Patient Nutrition Acuity: 1-High Follow Up Date: Jan 02, 2018 Nutritional Comment: 12/31 Pt admitted with N/V/D and will be treated for partial SBO. PMH of Crohn's dx. Today symptoms have been improving and his diet was advanced to clear liquid. No intake to report yet. Had recent surgery and has 2-3+ pitting edema in lower extremities. BMI in obese category. Notable labs include low H/H, hypoglycemia at 56, Mg 2.4, alk phos 133 and alb 2.9. Will monitor clinical progression, wts, labs, etc. -FRED EDWARDS Dec 31, 2017 12:11
--- NOTE | 2017-12-31 12:30 | NUR ---
Physical Therapy Impression Pt progressing well with improved tolerance for activity and no c/o abdominal pain today. Pt is mod Indep/SBA for transfers and ambulation x 200' with use of FWW due to generalized weakness and decreased balance. Pt would benefit from further PT to address safety with up/down step prior to return home when medically appropriate. Physical Therapy Goals 1. Pt to tolerate ambulation with least restrictive device x 150' with SBA/Modified indep 2. Pt to be modified indep with bed mobility and supine to/from sit transfers 3. Pt to be modified indep with sit to/from stand transfers 4. Pt to stephanie up/down platform step x 2 reps with Modified indep/SBA Patient's Goals
[2017-12-31] MEDS: ONDANSETRON 4 MG/2 ML VIAL IVP PRN (16:24)
[2017-12-31] MEDS: PANTOPRAZOLE SOD 40 MG TABEC PO SCH (20:36)
[2018-01-01] VITALS (7 sets, daily range): BP systolic 121–149; BP diastolic 86–106
[2018-01-01] MEDS: ACETAMINOPHEN(*)1000 MG/100 ML 100 ML IVPB SCH ×3 (00:27→17:00)
[2018-01-01] MEDS: MORPHINE 2 MG/ML SYR IVP PRN ×2 (02:39→11:44)
[2018-01-01] MEDS: METOPROLOL TART 5 MG/5 ML VIAL IVP SCH (05:44)
[2018-01-01] MEDS ORDERED: LEVOTHYROXINE SOD 0.075 MG TAB PO SCH (06:00)
[2018-01-01 06:25] LABS: PLATELET COUNT, AUTOMATED 348 K/uL (150-450)
[2018-01-01] MEDS ORDERED: FERROUS SULFATE 325 MG TAB PO ONE (08:30)
[2018-01-01] MEDS: CYANOCOBALAMIN 1000 MCG TAB PO SCH (09:29)
[2018-01-01] MEDS: SPIRONOLACTONE 25 MG TAB PO SCH (09:29)
[2018-01-01] MEDS: PANTOPRAZOLE SOD 40 MG TABEC PO SCH ×2 (09:29→21:10)
[2018-01-01] MEDS: ASPIRIN 81 MG ENTERIC COATED PO SCH (09:30)
[2018-01-01] MEDS: CITALOPRAM HYDROBROM 20 MG TAB PO SCH (09:30)
[2018-01-01] MEDS: METOPROLOL SUCC XL 50 MG TABCR 50 MG TAB.ER.24H PO SCH (09:30)
[2018-01-01] MEDS: OXYBUTYNIN CHL XL 5 MG TABCR PO SCH (09:30)
[2018-01-01] MEDS: HEPARIN (PORC) 5000 UN/ML VIAL SC SCH ×2 (09:31→21:11)
[2018-01-01] MEDS: FOLIC ACID 1 MG TAB PO SCH (09:31)
--- NOTE | 2018-01-01 10:02 | General Surgery Progress Note ---
Subjective Progress Notes Subjective Feeling well this AM. Tolerating regular diet. Passing flatus and stools. Stool frequency still above normal but becoming more solid. Denies any nausea or vomiting. No chest pain or shortness of breath. Patient Complains of: Neurological: No: Syncope, Confusion, Weakness, Dizziness, Slurred Speech, Other Cardiovascular: No: Chest Pain, Palpitations, Orthostatic Hypotension, Other Respiratory: No: Cough, Congestion, Shortness of Breath, Wheezing, Other Gastrointestinal: Flatus, Bowel Movement Genitourinary: No Dysuria, No Hematuria, No Urinary Incontinence, No Other Musculoskeletal: No: Pain, Sprain, Strain, Impaired Mobility, Other Physical Exam Vital Signs Date Time Temp Pulse Resp B/P (MAP) Pulse Ox O2 Delivery O2 Flow Rate FiO2 01/01/18 05:41 122 18 149/105 (120) 90 Nasal Cannula 1.5 01/01/18 02:19 97.7 Intake and Output 01/01/18 06:59 Intake Total 2251 ml Output Total 75 ml Balance 2176 ml Intake Oral 920 ml IV Total 1331 ml Output Urine Total 75 ml # Voids 106 # Bowel Movements 6 General Appearance: Alert, Awake, No Acute Distress Neuro: No Gross deficits ENT: Moist Mucous Membranes Cardiovascular: Other (Irregularly irregular rate, normal rhythm. No appreciable M/R/G.) GI: Soft and Non-Tender, Other (Normoactive bowel sounds. ) Extremities: Soft and Non Tender, Edema (Pitting B/L LE edema) Integumentary: Skin Intact without Lesion / Mass Psych: Alert & Oriented X3, Appropriate Mood & Affect Result Diagram: 01/01/18 0547 01/01/18 0547 Monitor Interpretation: Atrial Fibrillation Assessment and Plan Problems: (1) Small bowel obstruction, partial Status: Resolved Assessment & Plan: 12/30/17: Patient with CT scan suggestive of possible small bowel obstruction. In light of prolonged antibiotic use will test patient for possible Clostridium difficile infection. 1. Admit for bowel rest with NG tube decompression, 2. IV fluid resuscitation, 3. Repeat CBC and BMP in AM, 4. Obtain stool sample for C diff testing, 5. PRN antiemetics, 6. Will hold outpatient antibiotics for now, 7. PT/OT evaluations while inpatient 12/31/17: Patient overall feeling improved. Continues to have diarrhea but abdominal pain has resolved. C diff testing negative. Continue supportive care. OK for clears as tolerated. Encourage OOBTC and ambulation. Pulmonary toilet. Repeat labs in AM. Continue IVFs until diarrhea slows or resolves. Resume home loperamide. 01/01/18: Patient overall feeling improved. Continues to have loose stools but improving and abdominal pain has resolved. C diff testing negative. Regular diet as tolerated. Resume home meds. Encourage OOBTC and ambulation. Pulmonary toilet. DC MIVF. Possible DC to home later today vs tomorrow if tolerating home medication regimen. (2) CHRONIC ATRIAL FIBRILLATION Status: Chronic Assessment & Plan: 12/30/17: Chronic atrial fibrillation on anticoagulation 1. Obtain baseline ECG, 2. Hold PO anticoagulation for now, 3. Convert PO metoprolol to IV, 4. Cardiac monitoring while inpatient 12/31/17: Improved rate control with initiation of IV metoprolol. Continue to hold anticoagulation, can continue daily aspirin. Continue tele monitoring. 01/01/18: Resume home metoprolol. Continue to hold anticoagulation, can continue daily aspirin. Continue tele monitoring. (3) Hypocalcemia Status: Resolved Assessment & Plan: Resolved with IV repletion x1 (4) Hypoglycemia Status: Resolved Assessment & Plan: Resolved with resumption of PO intake. Exam Sepsis Risk: Sepsis Risk TEN MONTANEZ MD Jan 01, 2018 08:37
--- NOTE | 2018-01-01 11:48 | NUR ---
Attempted to give morphine at 1147, but Pt's IV infiltrated. Morphine wasted with Nikki MULTANI
[2018-01-01] MEDS: LOPERAMIDE HCL 2 MG CAP PO PRN (12:49)
[2018-01-01] MEDS: CALCIUM CARBONATE/VITAMIN D3 PO SCH (17:06)
[2018-01-01] MEDS ORDERED: FUROSEMIDE 40 MG TAB PO ONE (17:15)
--- NOTE | 2018-01-01 17:18 | NUR ---
stated ok for Pt not to have IV. IV Ofirmev not given.
[2018-01-01] MEDS ORDERED: ACETAMINOPHEN 325 MG TAB PO PRN (17:20)
[2018-01-02 03:25] VITALS: BP 131/87
[2018-01-02] MEDS: LOPERAMIDE HCL 2 MG CAP PO PRN ×2 (05:08→07:29)
[2018-01-02 07:31] VITALS: BP 153/107
[2018-01-02] MEDS: CALCIUM CARBONATE/VITAMIN D3 PO SCH (08:38)
[2018-01-02] MEDS: CITALOPRAM HYDROBROM 20 MG TAB PO SCH (08:39)
[2018-01-02] MEDS: OXYBUTYNIN CHL XL 5 MG TABCR PO SCH (08:39)
[2018-01-02] MEDS: SPIRONOLACTONE 25 MG TAB PO SCH (08:40)
[2018-01-02] MEDS: FOLIC ACID 1 MG TAB PO SCH (08:41)
[2018-01-02] MEDS: HEPARIN (PORC) 5000 UN/ML VIAL SC SCH (08:41)
[2018-01-02] MEDS: ASPIRIN 81 MG ENTERIC COATED PO SCH (08:41)
[2018-01-02] MEDS: METOPROLOL SUCC XL 50 MG TABCR 50 MG TAB.ER.24H PO SCH (08:41)
[2018-01-02] MEDS: CYANOCOBALAMIN 1000 MCG TAB PO SCH (08:41)
[2018-01-02] MEDS: PANTOPRAZOLE SOD 40 MG TABEC PO SCH (08:41)
--- NOTE | 2018-01-02 09:24 | General Surgery Progress Note ---
Subjective Progress Notes Subjective Overall feeling well this AM. Tolerating solids without issues. Bowel movements more solid this AM per report. Denies any chest pain or dyspnea. Patient Complains of: Neurological: No: Syncope, Confusion, Weakness, Dizziness, Slurred Speech, Other Cardiovascular: No: Chest Pain, Palpitations, Orthostatic Hypotension, Other Respiratory: No: Cough, Congestion, Shortness of Breath, Wheezing, Other Gastrointestinal: No Nausea, No Vomiting, No Flatus, No Bowel Movement, No Other Genitourinary: No Dysuria, No Hematuria, No Urinary Incontinence, No Other Physical Exam Vital Signs Date Time Temp Pulse Resp B/P (MAP) Pulse Ox O2 Delivery O2 Flow Rate FiO2 01/02/18 07:44 87 Room Air 01/02/18 07:31 98.0 112 153/107 (122) 01/02/18 03:25 16 1.0 Intake and Output 01/02/18 06:59 Intake Total 602 ml Output Total 200 ml Balance 402 ml Intake Oral 502 ml IV Total 100 ml Output Urine Total 200 ml # Voids 8 # Bowel Movements 5 General Appearance: Alert, Awake, No Acute Distress Neuro: No Gross deficits Eyes: PERRLA ENT: Moist Mucous Membranes Cardiovascular: Other (Irregularly irregular rate, normal rhythm. No appreciable M/R/G.) Respiratory: No Respiratory Distress, Clear to Auscultation GI: Soft and Non-Tender Extremities: Soft and Non Tender, Edema Result Diagram: 01/01/18 0547 01/01/18 0547 Monitor Interpretation: Atrial Fibrillation Assessment and Plan Problems: (1) Small bowel obstruction, partial Status: Resolved Assessment & Plan: 12/30/17: Patient with CT scan suggestive of possible small bowel obstruction. In light of prolonged antibiotic use will test patient for possible Clostridium difficile infection. 1. Admit for bowel rest with NG tube decompression, 2. IV fluid resuscitation, 3. Repeat CBC and BMP in AM, 4. Obtain stool sample for C diff testing, 5. PRN antiemetics, 6. Will hold outpatient antibiotics for now, 7. PT/OT evaluations while inpatient 12/31/17: Patient overall feeling improved. Continues to have diarrhea but abdominal pain has resolved. C diff testing negative. Continue supportive care. OK for clears as tolerated. Encourage OOBTC and ambulation. Pulmonary toilet. Repeat labs in AM. Continue IVFs until diarrhea slows or resolves. Resume home loperamide. 01/01/18: Patient overall feeling improved. Continues to have loose stools but improving and abdominal pain has resolved. C diff testing negative. Regular diet as tolerated. Resume home meds. Encourage OOBTC and ambulation. Pulmonary toilet. DC MIVF. Possible DC to home later today vs tomorrow if tolerating home medication regimen. 01/02/18: GI symptoms largely resolved. Still having increased stool frequency but no difficulty with maintaining fluid balance. Tolerating regular diet. Appropriate for DC to home from a GI perspective. (2) CHRONIC ATRIAL FIBRILLATION Status: Chronic Assessment & Plan: 12/30/17: Chronic atrial fibrillation on anticoagulation 1. Obtain baseline ECG, 2. Hold PO anticoagulation for now, 3. Convert PO metoprolol to IV, 4. Cardiac monitoring while inpatient 12/31/17: Improved rate control with initiation of IV metoprolol. Continue to hold anticoagulation, can continue daily aspirin. Continue tele monitoring. 01/01/18: Resume home metoprolol. Continue to hold anticoagulation, can continue daily aspirin. Continue tele monitoring. 01/02/18: Baseline afib, better controlled with resumption of PO medications. Can resume home anticoagulants at DC. (3) Hypoxia Onset Date: ~ 12/31/2017 Status: Acute Assessment & Plan: 01/02/18: Patient with mild hypoxia. Sats in the upper 80s on room air. No complaints of dyspnea. CT on admission with bibasilar pleural effusions. Lasix yesterday without improvement in sats. Obtain 2 view chest x- ray this AM. Continue supplemental O2 as needed to maintain sats >92%. Start eval for home O2. Time Spent: > 30 min Exam Sepsis Risk: No Definite Risk TEN MONTANEZ MD Jan 02, 2018 08:49
[2018-01-02] MEDS ORDERED: hydrALAZINE HCL 10 MG TAB PO PRN (10:00)
--- NOTE | 2018-01-02 10:05 | NUR ---
PHYSICAL THERAPY INFORMATION TRANSFER SHEET BED MOBILITY: Modified I/ AE TRANSFERS: Modified I/ AE GAIT: 150 ' with O2 RW and Modified I/ AE Weightbearing Status: STAIRS: 1 with Modified I/ AE. EXERCISES: Verbalizes Needs: Yes Understands Directions Yes Cooperative: Yes Family Teaching: No Physical Therapy Comment:
--- NOTE | 2018-01-02 10:05 | NUR ---
Physical Therapy Impression Pt safe for DC when medically appropriate. Physical Therapy Goals 1. Pt to tolerate ambulation with least restrictive device x 150' with SBA/Modified indep 2. Pt to be modified indep with bed mobility and supine to/from sit transfers 3. Pt to be modified indep with sit to/from stand transfers 4. Pt to stephanie up/down platform step x 2 reps with Modified indep/SBA Patient's Goals
[2018-01-02 10:41] VITALS: BP 145/111
--- NOTE | 2018-01-02 11:55 | RADIOLOGY IMAGING REPORT ---
FACILITY: [facility] PATIENT NAME: Wolf Camacho : 1940 MR: [id number] V: [id number] EXAM DATE: ORDERING PHYSICIAN: TEN MONTANEZ TECHNOLOGIST: Location: [facility] Patient: Wolf Camacho : 1940 Visit/Account:[id number] Date of Sevice: 01/02/2018 CHEST PA AND LAT Additional pertinent History: Cough. Pain. COMPARISON STUDIES: 11/04/2017 FINDINGS: Support lines and catheters: None Lungs and Pleura: There are bibasilar areas of atelectasis. Small bilateral effusions. Overlying t he anterior right fifth rib there is a perceived vague 1.5 mm nodular density that was not seen on th e previous examination. Heart and vasculature: Negative. Roberta and Mediastinum: Prominence of the right hilum similar to the previous chest x-rays Bones and Chest wall: Neurostimulator leads extending the midthoracic spine Upper Abdomen: Negative. IMPRESSION: 1. Increasing areas of atelectasis in both lung bases with interval development of small bilateral e ffusions. Perceived vague roundish density possibly representing a small focal round consolidation v ersus fortuitous overlapping of bronchovascular and interstitial lung markings. Report Dictated By: Domo Chiu MD at 01/02/2018 11:21 AM Report E-Signed By: Domo Chiu MD at 01/02/2018 11:49 AM WSN:[email or web address]
--- NOTE | 2018-01-02 12:19 | Medical Nutrition Therapy ---
Nutrition Anthropometrics Height (Inches): 72.00 Height (Calculated Centimeters: 182.047801 Weight (Pounds): 218 Weight (Calculated Kilograms): 98.883 Brock Nutrition Score: Adequate Brock Nutrition Risk Score: 17 Dietary Referral Nutrition Risk Factors: Nutrition Risk Comment: Physical Findings Physical Appearance: Obese BMI 30-39 Skin Appearance Skin Appearance: Edema Edema Location Modifier: Left Edema Location: Lower Extremity Type of Edema: Degree of Edema: 2+ Gastrointestinal Symptoms GI Symtoms: Diarrhea Tube Present: Bowel Sounds: Recent Bowel Pattern: Diarrhea Stool Characteristics: Brown, Liquid, Green Nutritional Diagnosis Nutritional Risk Acuity 1: GI Obstruction Past Medical History: Crohn's Nutritional Acuity: 1-High Nutrition Diagnosis: Altered GI Function Nutrition Etiology: Physiological Causes Nutrition Problem/Etiology/Sym: Altered GI function related to physiological causes as evidenced by symptoms of N/V/Dm hx of crohn's and partial SBO. Energy Requirement: 2059 (3317-1100 (HB adj for obesity x 1.3-1.5)) Protein Requirement: 78 (78-98 (.8-1 g/kg actual BW)) Fluid Requirement: 1960 Diet Type: Diet as Tolerated GIORGIO/REG Nutrition Intervention: Cont diet as ordered, Encourage intake Nutrition Monitoring & Eval Nutrition Goals: Eat 75-100% Meal, Drink > 1500 cc/day Nutrition Follow-Up: Fair Intake RD Patient Assessment Time: [address] Assessment Type: RD Assessment Patient Nutrition Acuity: 1-High Follow Up Date: Jan 04, 2018 Nutritional Comment: 12/31 Pt admitted with N/V/D and will be treated for partial SBO. PMH of Crohn's dx. Today symptoms have been improving and his diet was advanced to clear liquid. No intake to report yet. Had recent surgery and has 2-3+ pitting edema in lower extremities. BMI in obese category. Notable labs include low H/H, hypoglycemia at 56, Mg 2.4, alk phos 133 and alb 2.9. Will monitor clinical progression, wts, labs, etc. -EK 01/02 Pt seems to be tolerating GIORGIO. Adb pain has resolved, no n/v. Pt did report loose stools, but more solid this am. On 01/01 Pt moved from small bites of meal to 25% to 75% consumption. Pt protein status low, with total protein at 5.3 and alb at 2.4. Pt still experiencing 2+ edema in LE. TB VILMA BAH Jan 02, 2018 09:51
[2018-01-03] MEDS ORDERED: DICY20TA70 PO (10:26)
[2018-01-03] MEDS ORDERED: ONDA4TAB97 PO (10:26)
[2018-03-03] MEDS ORDERED: FURO20TA19 PO (09:55)
[2018-03-03] MEDS ORDERED: FURO40TA35 PO (09:55)
[2018-03-03] MEDS ORDERED: LEVO88TA43 PO (10:00)
--- NOTE | 2018-03-11 00:08 | Hospitalist Depart ---
Discharge Summary Reason for Hosp/Final Diag: (1) Abdominal pain Status: Acute Hospital Course & Plan: Mr. Wolf Camacho is a 77 year old male with a history of Crohns disease, treated medically with Humira, who recently underwent operative repair of a right femur fracture. The patient's postoperative course from this event was complicated by wound infection requiring a prolonged antibiotic course. He presented to [facility] on 03/01/2017 with approximately 48 hours of nausea, vomiting and diarrhea with inability to tolerate any PO intake. On initial work-up in the emergency departement the patient had an abdominal CT scan suggestive of small bowel obstruction as a cause for abdominal pain. He was admitted for bowel rest, nasogastric tube bowel decompression and work up for possible Clostridium difficile infection. The patient ultimately tested negative for toxigenic C. diff. He subsequently had his NG tube removed and underwent systemic dietary advancement with good toleration. He continued to have loose stools which were controlled with his home regimen of loperamide. By the date of discharge the patient's abdominal pain had resolved entirely and he was fully tolerant of a regular diet. (2) Small bowel obstruction Status: Chronic Hospital Course & Plan: See above. Abdominal symptoms resolved without operative intervention. Small bowel obstruction was felt to be unlikely by the date of discharge. Departure Weight (Pounds): 218 Condition: Improved Discharge: Home Discharge Code Status: Full Code Time Spent: < 30 min Discharge Instructions Home Meds Reported Medications Levothyroxine Sodium (SYNTHROID) 88 Mcg Tablet, 88 MCG PO QDAY 03/03/18 Furosemide (LASIX) 20 Mg Tablet, 1 TAB PO DAILY, TAB 03/03/18 Calcium Carbonate/Vitamin D3 (CALCIUM 500 + D TABLET) 1 Each Tablet, 2 EACH PO DAILY 12/30/17 Loperamide HCl (Imodium A-D) 2 Mg Capsule, 2 MG PO Q6H PRN for DIARRHEA 12/30/17 [Nystatin Swish] No Conflict Check, 011810 UNIT PO BID 12/30/17 Triamcinolone Acetonide 0.1% Cr 15 Gm Tube (TRIAMCINOLONE ACETONIDE 0.1% CREAM) 15 Gm Cream..g., 15 GM TP BID, TUBE 12/30/17 Ondansetron Hcl (ZOFRAN) 4 Mg Tablet, 4 MG PO Q6H PRN for NAUSEA, TAB 12/30/17 Spironolactone (SPIRONOLACTONE) 50 Mg Tablet, 50 MG PO QDAY 12/30/17 Oxybutynin Chloride (OXYBUTYNIN CHLORIDE ER) 15 Mg Tab.er.24, 15 MG PO QDAY, TAB.SA 12/30/17 Metoprolol Succinate (METOPROLOL SUCCINATE) 50 Mg Tab.er.24h, 200 MG PO QDAY, TAB 12/30/17 Folic Acid (FOLIC ACID) 1 Mg Tablet, 1 MG PO QDAY, TAB 12/30/17 Apixaban (ELIQUIS) 5 Mg Tablet, 5 MG PO BID 12/30/17 Cyanocobalamin (Vitamin B-12) (CYANOCOBALAMIN INJECTION) 1,000 Mcg/1 Ml Vial, 1000 MCG IJ DIRECTED, VIAL 12/30/17 Aspirin (ASPIRIN) 81 Mg Tab.chew, 81 MG PO QDAY, TAB.CHEW 12/30/17 Cholecalciferol (Vitamin D3) (VITAMIN D) 5,000 Unit Tablet, 04170 UNIT PO DAILY 11/14/15 Pantoprazole Sodium (PANTOPRAZOLE SODIUM) 40 Mg Tablet.dr, 1 TAB PO QDAY, TAB.SR 11/10/15 Iron (IRON) 18 Mg Tablet, 28 MG PO 11/03/15 Oxycodone Hcl/Acetaminophen (OXYCODONE-ACETAMINOPHEN 5-325) 1 Each Tablet, 1 EACH PO Q6-8H for PAIN, TAB 11/03/15 Adalimumab (HUMIRA) 40 Mg/0.8 Ml/Kit Kit, 40 MG SUBQ, KIT 02/22/14 Lisinopril (LISINOPRIL) 20 Mg Tablet, 20 MG PO QDAY 04/12/13 Discontinued Reported Medications Furosemide (LASIX) 40 Mg Tablet, 1 TAB PO DAILY, TAB 03/03/18 Cephalexin 500 Mg Tab (KEFLEX 500 MG TAB) 500 Mg Tablet, 500 MG PO Q12H, #28 TAB 12/30/17 Levothyroxine Sodium (LEVOTHYROXINE SODIUM) 75 Mcg Tablet, 75 MCG PO QDAY 02/22/14 Discontinued Scripts Cefuroxime Axetil (CEFUROXIME) 500 Mg Tablet, 500 MG PO BID for infection, #14 TAB Prov:KIRA BAIG DO 01/15/18 Dicyclomine Hcl (DICYCLOMINE HCL) 20 Mg Tablet, 20 MG PO QID for abdominal cramping, #30 TAB 0 Refills Prov:LILIANA RUBALCAVA MD 01/03/18 Diet: Regular Activity: As Tolerated Venous Thromboembolism VTE Risk Physician Assess for VTE Risk: Yes Patient's VTE Risk: Low VTE Diagnostic Test 2 Days Prior to Admit: No Antithrombotics Is Pt On Any Antithrombotics?: Yes Problem Qualifiers (1) Abdominal pain: Abdominal location: generalized Qualified Codes: R10.84 - Generalized abdominal pain TEN MONTANEZ MD Mar 11, 2018 00:08
== END 2018-01-02 11:52 | disposition home health service (06) | DRG 387 ==
LOC: ER 09:33 → MED 12:02
PROVIDERS: ADMIT Surgery Surgical Critical Care; ATTEND Surgery Surgical Critical Care
DX: K50.912 Crohn's disease, unspecified, with intestinal obstruction (principal); I48.2 Chronic atrial fibrillation; E16.2 Hypoglycemia, unspecified; E83.51 Hypocalcemia; R09.02 Hypoxemia
CPT/HCPCS: 36415; 36416; 71046; 74177; 81001; 82040; 82247; 82310; 82374; 82435; 82550; 82565; 82607; 82746; 82947; 82948; 83036; 83605; 83630; 83690; 83735; 83880; 84075; 84132; 84155; 84207; 84295; 84443; 84450; 84460; 84520; 84550; 85025; 85027; 85610; 85651; 85730; 87040; 87045; 87205; 87324; 87449; 87493; 93005; 96361; 96365; 96375; 96376; 97161; 99285; C9113; J0131; J0610; J1644; J2270; J2405; J3010; J3490; J7040; J7050; J7120; Q9967

== ENCOUNTER 2018-01-03 08:20 | Emergency (ER) | payer MEDICARE, OTHER ==
[2017-12-31 11:59] VITALS: Wt 98.9 kg
[~2018-01-03 08:20] MED LIST changes: +AMLO-111 PO; -AMLO-125 PO; +APIX5TAB PO; +ASPI81TA94 PO; +CALC-734 PO; +CEPH500T7 PO; +CHOL10005 PO; +CITA-155 PO; +CYAN1000 IJ; +FOLI-68 PO; +LOPE2CAP15 PO; +METO50TA19 PO; +NYSTATIN SWISH PO; +ONDA4TAB97 PO; +OXYB15TA14 PO; +OXYB5TAB86 PO; +RIFA300C50 PO; +SPIR50TA33 PO; +TRIA15CR40 TP
[2018-01-03] MEDS ORDERED: NS(*) 0.9% 1000 ML BAG 1,000 ML IV ONE (08:42)
--- NOTE | 2018-01-03 08:42 | ER Report ---
History and Physical Time Seen By MD: 08:37 Hx. of Stated Complaint: LEFT LOWER ABDOMINAL PAIN SINCE 0300 HPI/ROS CHIEF COMPLAINT: Lower quadrant abdominal pain HISTORY OF PRESENT ILLNESS: Patient is a 77-year-old male who returns to the emergency department with complaint of left lower quadrant abdominal pain since 3 AM this morning. Patient had recent admission on December 31 through January 02 for suspected small bowel obstruction which resolved spontaneously and he was discharged home yesterday. He was feeling well until 3 AM. He does report nausea with no vomiting. He does report some liquid stools. However since the pain returned he returns to the emergency department for reevaluation. C. difficile testing while in the hospital was negative for C. difficile toxin a and B REVIEW OF SYSTEMS: Constitutional: No fever, no chills. Eyes: No discharge. ENT: No sore throat. Cardiovascular: No chest pain, no palpitations. Respiratory: No cough, no shortness of breath. Gastrointestinal: Left lower quadrant abdominal pain, nausea Genitourinary: No hematuria. Musculoskeletal: No back pain. Skin: No rashes. Neurological: No headache. Allergies: Coded Allergies: Soap (Verified Allergy, Intermediate, BLISTERS, 12/30/17) povidone-iodine (Verified Allergy, Intermediate, BLISTERS, 12/30/17) Home Meds Active Scripts Ondansetron Hcl (ZOFRAN) 4 Mg Tablet, 4 MG PO Q8H for Nausea, #15 TAB 0 Refills Prov:LILIANA RUBALCAVA MD 01/03/18 Dicyclomine Hcl (DICYCLOMINE HCL) 20 Mg Tablet, 20 MG PO QID for abdominal cramping, #30 TAB 0 Refills Prov:LILIANA RUBALCAVA MD 01/03/18 Reported Medications Calcium Carbonate/Vitamin D3 (CALCIUM 500 + D TABLET) 1 Each Tablet, 2 EACH PO DAILY 12/30/17 Loperamide HCl (Imodium A-D) 2 Mg Capsule, 2 MG PO Q6H PRN for DIARRHEA 12/30/17 [Nystatin Swish] No Conflict Check, 229057 UNIT PO BID 12/30/17 Triamcinolone Acetonide 0.1% Cr 15 Gm Tube (TRIAMCINOLONE ACETONIDE 0.1% CREAM) 15 Gm Cream..g., 15 GM TP BID, TUBE 12/30/17 Ondansetron Hcl (ZOFRAN) 4 Mg Tablet, 4 MG PO Q6H PRN for NAUSEA, TAB 12/30/17 Rifampin (RIFAMPIN) 300 Mg Capsule, 300 MG PO BID, CAPSULE 12/30/17 Spironolactone (SPIRONOLACTONE) 50 Mg Tablet, 50 MG PO QDAY 12/30/17 Oxybutynin Chloride (OXYBUTYNIN CHLORIDE ER) 15 Mg Tab.er.24, 15 MG PO QDAY, TAB .SA 12/30/17 Metoprolol Succinate (METOPROLOL SUCCINATE) 50 Mg Tab.er.24h, 200 MG PO QDAY, TAB 12/30/17 Folic Acid (FOLIC ACID) 1 Mg Tablet, 1 MG PO QDAY, TAB 12/30/17 Apixaban (ELIQUIS) 5 Mg Tablet, 5 MG PO BID 12/30/17 Cyanocobalamin (Vitamin B-12) (CYANOCOBALAMIN INJECTION) 1,000 Mcg/1 Ml Vial, 1000 MCG IJ DIRECTED, VIAL 12/30/17 Cephalexin 500 Mg Tab (KEFLEX 500 MG TAB) 500 Mg Tablet, 500 MG PO Q12H, #28 TAB 12/30/17 Citalopram Hydrobromide (CELEXA) 10 Mg Tablet, 10 MG PO QDAY, #5 TAB 12/30/17 Aspirin (ASPIRIN) 81 Mg Tab.chew, 81 MG PO QDAY, TAB.CHEW 12/30/17 Cholecalciferol (Vitamin D3) (VITAMIN D) 5,000 Unit Tablet, 10784 UNIT PO DAILY 11/14/15 Pantoprazole Sodium (PANTOPRAZOLE SODIUM) 40 Mg Tablet.dr, 1 TAB PO QDAY, TAB.SR 11/10/15 Iron (IRON) 18 Mg Tablet, 28 MG PO 11/03/15 Oxycodone Hcl/Acetaminophen (OXYCODONE-ACETAMINOPHEN 5-325) 1 Each Tablet, 1 EACH PO Q6-8H for PAIN, TAB 11/03/15 Adalimumab (HUMIRA) 40 Mg/0.8 Ml/Kit Kit, 40 MG SUBQ, KIT 02/22/14 Levothyroxine Sodium (LEVOTHYROXINE SODIUM) 75 Mcg Tablet, 75 MCG PO QDAY 02/22/14 Lisinopril (LISINOPRIL) 20 Mg Tablet, 20 MG PO QDAY 04/12/13 Discontinued Reported Medications Cholecalciferol (Vitamin D3) (VITAMIN D3) 1,000 Unit Tablet, 1000 UNIT PO QDAY, TAB 12/30/17 Oxybutynin Chloride (OXYBUTYNIN CHLORIDE) 5 Mg Tablet, 15 MG PO QDAY, TAB 12/30/17 Folic Acid (FOLIC ACID) 20 Mg Capsule, 20 MG PO QDAY, CAPSULE 11/03/15 Oxybutynin Chloride (OXYBUTYNIN CHLORIDE ER) 10 Mg Tab.er.24, 10 MG PO QDAY, TAB.SR 11/03/15 Ascorbic Acid (VITAMIN C) 250 Mg Tablet, 250 MG PO QDAY 10/14/13 Loperamide Hcl (IMODIUM A-D) 1 Mg/7.5 Ml Liquid, 1 MG PO PRN 10/14/13 Past Medical/Surgical History Past medical history for NSTEMI, history of atrial fibrillation on Eliquis; history of right femur fracture in June 2017 followed by subsequent wound infection and prolonged treatment with IV antibiotics. Currently now switched to oral antibiotics past medical history for reflux, hypertension hypothyroidism Hx Smoking: No Smoking Status: Never Smoker Hx Substance Use Disorder: No Hx Alcohol Use: No Constitutional Vital Sign - Last 24 Hours 01/03/18 01/03/18 01/03/18 01/03/18 08:29 08:31 09:00 10:00 Temp 97.8 Pulse 89 128 79 Resp 22 B/P (MAP) 122/92 122/92 (102) 129/93 (105) 140/104 (116) Pulse Ox 94 88 92 O2 Delivery Nasal Cannula Physical Exam General Appearance: The patient is alert, has no immediate need for airway protection and no signs of toxicity. Eyes: Pupils equal and round no pallor or injection. ENT, Mouth: Mucous membranes are moist. Respiratory: There are no retractions, lungs are clear to auscultation. Cardiovascular: Irregularly irregular but rate controlled Gastrointestinal: Abdomen is noted for tenderness to the left lower quadrant without guarding or rebound tenderness noted. Neurological: Awake and alert Skin: Warm and dry, no rashes. Musculoskeletal: Neck is supple non tender. Extremities are nontender, nonswollen and have full range of motion. Medical Decision Making Data Points Result Diagram: 01/03/18 0850 01/03/18 0850 Laboratory Hematology Test 01/03/18 08:50 Red Blood Count 4.19 M/uL (4.00-5.60) Mean Corpuscular Volume 81.7 fL (80.0-96.0) Mean Corpuscular Hemoglobin 26.2 pg (26.0-33.0) Mean Corpuscular Hemoglobin Concent 32.1 g/dL (32.0-36.0) Red Cell Distribution Width 17.0 % (11.5-14.5) Mean Platelet Volume 7.2 fL (7.2-11.1) Neutrophils (%) (Auto) 55.8 % (39.4-72.5) Lymphocytes (%) (Auto) 28.2 % (17.6-49.6) Monocytes (%) (Auto) 10.1 % (4.1-12.4) Eosinophils (%) (Auto) 4.7 % (0.4-6.7) Basophils (%) (Auto) 1.2 % (0.3-1.4) Nucleated RBC Relative Count (auto) 0.1 /100WBC Neutrophils # (Auto) 2.4 K/uL (2.0-7.4) Lymphocytes # (Auto) 1.2 K/uL (1.3-3.6) Monocytes # (Auto) 0.4 K/uL (0.3-1.0) Eosinophils # (Auto) 0.2 K/uL (0.0-0.5) Basophils # (Auto) 0.1 K/uL (0.0-0.1) Nucleated RBC Absolute Count (auto) 0.00 K/uL Sodium Level 135 mmol/L (137-145) Potassium Level 3.8 mmol/L (3.5-5.0) Chloride Level 99 mmol/L (98-107) Carbon Dioxide Level 29 mmol/L (22-30) Blood Urea Nitrogen 11 mg/dl (9-21) Creatinine 0.90 mg/dl (0.66-1.25) Glomerular Filtration Rate Calc > 60.0 Random Glucose 73 mg/dl (75-110) Calcium Level 8.1 mg/dl (8.4-10.2) Total Bilirubin 0.4 mg/dl (0.2-1.3) Aspartate Amino Transf (AST/SGOT) 44 U/L (0-35) Alanine Aminotransferase (ALT/SGPT) 22 U/L (0-56) Alkaline Phosphatase 118 U/L (0-126) Total Protein 5.8 g/dl (6.3-8.2) Albumin 2.7 g/dl (3.5-5.0) Lipase < 10 U/L (23-300) Chemistry Test 01/03/18 08:50 White Blood Count 4.4 k/uL (4.5-11.0) Red Blood Count 4.19 M/uL (4.00-5.60) Hemoglobin 11.0 g/dL (14.0-18.0) Hematocrit 34.2 % (42.0-52.0) Mean Corpuscular Volume 81.7 fL (80.0-96.0) Mean Corpuscular Hemoglobin 26.2 pg (26.0-33.0) Mean Corpuscular Hemoglobin Concent 32.1 g/dL (32.0-36.0) Red Cell Distribution Width 17.0 % (11.5-14.5) Platelet Count 322 K/uL (150-450) Mean Platelet Volume 7.2 fL (7.2-11.1) Neutrophils (%) (Auto) 55.8 % (39.4-72.5) Lymphocytes (%) (Auto) 28.2 % (17.6-49.6) Monocytes (%) (Auto) 10.1 % (4.1-12.4) Eosinophils (%) (Auto) 4.7 % (0.4-6.7) Basophils (%) (Auto) 1.2 % (0.3-1.4) Nucleated RBC Relative Count (auto) 0.1 /100WBC Neutrophils # (Auto) 2.4 K/uL (2.0-7.4) Lymphocytes # (Auto) 1.2 K/uL (1.3-3.6) Monocytes # (Auto) 0.4 K/uL (0.3-1.0) Eosinophils # (Auto) 0.2 K/uL (0.0-0.5) Basophils # (Auto) 0.1 K/uL (0.0-0.1) Nucleated RBC Absolute Count (auto) 0.00 K/uL Glomerular Filtration Rate Calc > 60.0 Calcium Level 8.1 mg/dl (8.4-10.2) Total Bilirubin 0.4 mg/dl (0.2-1.3) Aspartate Amino Transf (AST/SGOT) 44 U/L (0-35) Alanine Aminotransferase (ALT/SGPT) 22 U/L (0-56) Alkaline Phosphatase 118 U/L (0-126) Total Protein 5.8 g/dl (6.3-8.2) Albumin 2.7 g/dl (3.5-5.0) Lipase < 10 U/L (23-300) EKG/Imaging Imaging FACILITY: [facility] [place] PATIENT NAME: Wolf Camacho : 1940 MR: [id number] V: [id number] EXAM DATE: ORDERING PHYSICIAN: LILIANA RUBALCAVA TECHNOLOGIST: [place] [facility] [place] Wolf Camacho : 1940 Visit/Account:[id number] Date of Sevice: 01/03/2018 ABDOMEN/PELVIS WITH CONTRAST HISTORY: llq pain TECHNIQUE: Axial images were obtained through the abdomen and pelvis with intravenous contrast . One of the following dose optimization techniques was utilized in the performance of this exam: automated exposure control; adjustment of the mA and/or kv according to patient size; or use of iterative reconstruction technique. Specific details can be referenced in the facility's radiology CT exam operational policy. CONTRAST: 75 mL of Isovue-370 COMPARISON: CT abdomen/pelvis 12/30/2017 FINDINGS: Visualized lung bases: Small bilateral pleural effusions with adjacent atelectasis, slightly increased. Right middle lobe calcified granuloma. Heart is moderately enlarged Hepatobiliary: 3 mm focus of arterial phase enhancement within the left lobe the liver (series 2 image 26). Hydropic gallbladder. No biliary ductal dilatation. Spleen: Heterogeneous spleen likely from early imaging phase. Adrenals: Negative. Pancreas: Negative. Kidneys/ureters/bladder: Negative. Bowel/peritoneum/mesentery: Decreasing distention of the small bowel. Several foci of potential nodular enhancement with small bowel measuring up to 1.0 x 0.9 x 0.8 cm (series 2 image 101). Other smaller nodular foci of enhancement on series 2 image 90 and series 2 image 71. Another questionable focus of abnormal enhancement versus incomplete distention upper (coronal image 35). Trace amount of mesenteric edema with multiple nonenlarged lymph nodes along the mesenteric root. No free air. Trace amount of free fluid within the pelvis. No pneumatosis. Vessels: Negative. Lymph nodes: Stable borderline enlarged left retroperitoneal lymph nodes. Pelvic genitourinary: Brachytherapy seeds within the prostate. Bones/body wall: Right PRABHA. Scattered degenerative changes. Moderate dextroscoliosis. Other findings: None significant IMPRESSION: 1. Interval decrease in distention of the small bowel without evidence of obstruction. Mild mesenteric edema with trace amount of pelvic free fluid. Multiple foci of nodular enhancement along the lumen of the small bowel, the largest of which within the a pelvic small bowel loop measures 1.0 x 0.9 x 0.8 cm and is persistent from prior examination. Small bowel polyposis possible. Other neoplastic processes such as metastatic disease or carcinoid also within the differential. Recommend GI consultation. Results were called to LILIANA RUBALCAVA at 01/03/2018 10:12 AM. Report Dictated By: Ernst Monson MD at 01/03/2018 9:55 AM Report E-Signed By: Ernst Monson MD at 01/03/2018 10:13 AM WSN:[id number] ED Course/Re-evaluation ED Course 01/03/2018 8:53:37 am Plan at this time will be perform abdominal workup including CT scan we'll keep the patient nothing by mouth. Re-evaluation 01/03/2018 10:22:51 am patient feeling improved. CT scan shows resolution of bowel obstruction. There are multiple nodules along the lumen of the small bowel that were persistent from prior examination. Suspect bowel polyposis. Neoplastic process is not ruled out there is a recommendation for GI consult. This was explained to the patient and the family that he will need to call and schedule a colonoscopy with Dr. Myers Decision to Disposition Date: Jan 03, 2018 Decision to Disposition Time: 10:25 Depart Departure Latest Vital Signs Vital Signs Date Time Temp Pulse Resp B/P (MAP) Pulse Ox O2 Delivery O2 Flow Rate FiO2 01/03/18 10:00 79 140/104 (116) 92 01/03/18 08:29 97.8 22 Nasal Cannula Impression: Primary Impression: Abdominal pain Condition: Improved Disposition: HOME OR SELF-CARE Referrals: COCO LUCIA (PCP) JOSE MATHIS MD Call to schedule a follow-up colonoscopy in the next few weeks for evaluation of the nodules/polyps seen on the intestines on your CT scan. New Scripts Ondansetron Hcl (ZOFRAN) 4 Mg Tablet 4 MG PO Q8H for Nausea, #15 TAB 0 Refills Prov: LILIANA RUBALCAVA MD 01/03/18 Dicyclomine Hcl (DICYCLOMINE HCL) 20 Mg Tablet 20 MG PO QID for abdominal cramping, #30 TAB 0 Refills Prov: LILIANA RUBALCAVA MD 01/03/18 Patient Instructions: Abdominal Pain (ED) Additional Instructions: Call Dr. Mathis to schedule a colonoscopy in the next few weeks. Problem Qualifiers Primary Impression: Abdominal pain Abdominal location: left lower quadrant Qualified Codes: R10.32 - Left lower quadrant pain LILIANA RUBALCAVA MD Jan 03, 2018 08:42
[2018-01-03] MEDS ORDERED: fentaNYL CITR 100 MCG/2 ML AMP IVP ONE (08:45)
[2018-01-03] MEDS ORDERED: ONDANSETRON 4 MG/2 ML VIAL IVP ONE (08:45)
[2018-01-03] MEDS ORDERED: IOPAMIDOL 76% 75 ML INFUS BTL 75 ML ONE (08:54)
[2018-01-03 09:12] LABS: PLATELET COUNT, AUTOMATED 322 K/uL (150-450)
[2018-01-03 10:00] VITALS: BP 140/104
--- NOTE | 2018-01-03 10:16 | RADIOLOGY IMAGING REPORT ---
FACILITY: [facility] - [place] PATIENT NAME: Wolf Camacho : 1940 MR: [id number] V: [id number] EXAM DATE: ORDERING PHYSICIAN: LILIANA RUBALCAVA [place]CHNOLOG[place] [facility] [place] : 1940 Visit/Account:[id number] Date of Sevice: 01/03/2018 ABDOMEN/PELVIS WITH CONTRAST HISTORY: llq pain TECHNIQUE: Axial images were obtained through the abdomen and pelvis with intravenous contrast . One of the following dose optimization techniques was utilized in the performance of this exam: automate d exposure control; adjustment of the mA and/or kv according to patient size; or use of iterative rec onstruction technique. Specific details can be referenced in the facility's radiology CT exam operati onal policy. CONTRAST: 75 mL of Isovue-370 COMPARISON: CT abdomen/pelvis 12/30/2017 FINDINGS: Visualized lung bases: Small bilateral pleural effusions with adjacent atelectasis, slightly increas ed. Right middle lobe calcified granuloma. Heart is moderately enlarged Hepatobiliary: 3 mm focus of arterial phase enhancement within the left lobe the liver (series 2 maylin ge 26). Hydropic gallbladder. No biliary ductal dilatation. Spleen: Heterogeneous spleen likely from early imaging phase. Adrenals: Negative. Pancreas: Negative. Kidneys/ureters/bladder: Negative. Bowel/peritoneum/mesentery: Decreasing distention of the small bowel. Several foci of potential nod ular enhancement with small bowel measuring up to 1.0 x 0.9 x 0.8 cm (series 2 image 101). Other sma ller nodular foci of enhancement on series 2 image 90 and series 2 image 71. Another questionable fo cus of abnormal enhancement versus incomplete distention upper (coronal image 35). Trace amount of m esenteric edema with multiple nonenlarged lymph nodes along the mesenteric root. No free air. Trace amount of free fluid within the pelvis. No pneumatosis. Vessels: Negative. Lymph nodes: Stable borderline enlarged left retroperitoneal lymph nodes. Pelvic genitourinary: Brachytherapy seeds within the prostate. Bones/body wall: Right PRABHA. Scattered degenerative changes. Moderate dextroscoliosis. Other findings: None significant IMPRESSION: 1. Interval decrease in distention of the small bowel without evidence of obstruction. Mild mesente goyo edema with trace amount of pelvic free fluid. Multiple foci of nodular enhancement along the lum en of the small bowel, the largest of which within the a pelvic small bowel loop measures 1.0 x 0.9 x 0.8 cm and is persistent from prior examination. Small bowel polyposis possible. Other neoplastic processes such as metastatic disease or carcinoid also within the differential. Recommend GI consult ation. Results were called to LILIANA RUBALCAVA at 01/03/2018 10:12 AM. Report Dictated By: Ernst Monson MD at 01/03/2018 9:55 AM Report E-Signed By: Ernst Monson MD at 01/03/2018 10:13 AM [id number]:[email or web address]
[2018-01-03] MEDS ORDERED: ONDA4TAB97 PO (10:26)
[2018-01-03] MEDS ORDERED: DICY20TA70 PO (10:26)
== END 2018-01-03 10:37 | disposition home or self-care (01) ==
LOC: ER 08:35
DX: R10.32 Left lower quadrant pain (principal)
CPT/HCPCS: 74177; 83690; 85025; 96361; 96374; 96375; 99284; J2405; J3010; J7030; Q9967; 82040; 82247; 82310; 82374; 82435; 82565; 82947; 84075; 84132; 84155; 84295; 84450; 84460; 84520

== ENCOUNTER → 2018-01-05 | Outpatient (CLI) | payer MEDICARE, OTHER ==
[2017-12-31 11:59] VITALS: BMI 29.6
[~2018-01-05] MED LIST changes: +BARIUM SULFATE 600 ML SUSP ONE; +DICY20TA70 PO
--- NOTE | 2018-01-05 15:24 | RADIOLOGY IMAGING REPORT ---
FACILITY: [facility] PATIENT NAME: Wolf Camacho : 1940 MR: [id number] V: [id number] EXAM DATE: ORDERING PHYSICIAN: JOSE MATHIS TECHNOLOGIST: Location: [facility] Patient: Wolf Camacho : 1940 Visit/Account:[id number] Date of Sevice: 01/05/2018 Exam type: SMALL BOWEL SERIES History: Small bowel obstruction abdomen pain, history of Crohn's Comparison: CT of abdomen pelvis January 03, 2018. Findings: Pulmonary hydro sprayer operator film demonstrates a dextroconvex scoliosis of the lumbar spine with extensive spondyl otic changes. A nerve stimulator battery pack projects over the left lower quadrant. There are brac hytherapy seeds projecting over the lower pelvis. There is a right hip arthroplasty in place. Bowel gas pattern is nonspecific Patient received a barium suspension to swallow. Sequential images were obtained over the abdomen an d pelvis there are several focal areas of small bowel distention in the mid and left upper abdomen ap peared be within the jejunum measuring up to 5 cm in diameter the barium did reach the right-sided th e colon by three hours and 30 minutes. There were several filling defects identified within the dist al small bowel which likely correspond to the enhancing masses seen on the recent CT scan. Terminal ileum appeared unremarkable. Small bowel mucosal pattern appeared unremarkable. Fluoroscopy was not performed IMPRESSION: 1. Transit time to the right-sided colon was three hours and 30 minutes. There are several areas of focal dilatation in the small bowel in the mid and left-sided abdomen measuring up to five centers i n diameter although the there was no obstruction to the passage of contrast There are several filling defects identified within the small bowel distally which likely correspond to the enhancing masses seen on the recent CT Report Dictated By: Montse Rucker MD at 01/05/2018 3:12 PM Report E-Signed By: Montse Rucker MD at 01/05/2018 3:20 PM WSN:[email or web address]
== END ==
LOC: RAD 00:41
PROVIDERS: ATTEND Surgery
DX: R10.9 Unspecified abdominal pain (principal)
CPT/HCPCS: 74250

== ENCOUNTER 2018-01-14 20:37 | Emergency (ER) | payer MEDICARE, OTHER ==
[2017-12-31 11:59] VITALS: Wt 95.3 kg
[~2018-01-14 20:37] MED LIST changes: -BARIUM SULFATE 600 ML SUSP ONE
--- NOTE | 2018-01-14 20:48 | ER Report ---
History and Physical Time Seen By MD: 20:48 Hx. of Stated Complaint: pt reports he hasnt felt good all day. chest pain started 2 hours ago. HPI/ROS CHIEF COMPLAINT: Not feeling well all day long HISTORY OF PRESENT ILLNESS: 77-year-old male presents not feeling well all day long. He complains of some dull chest pain for 2 hours. He's been feeling weak all day long. Patient's had several recent infections. He's on i mmunosuppression for rheumatoid arthritis. Patient has been prescribed several courses of recent antibiotics. Patient notes no fever or chills. He notes no productive cough, rhinitis or sore throat. He denies dysuria, frequency or hematuria. Patient denies nausea or vomiting. Patient's history is significant for cardiac ischemia. He was transferred with a non-STEMI [place] [facility] [place]. He also had a septic right knee after surgery for femur fracture where regino was placed. REVIEW OF SYSTEMS: Respiratory: No cough, no dyspnea. Cardiovascular: No chest pain, no palpitations. Gastrointestinal: No vomiting, no abdominal pain. Musculoskeletal: No back pain. Allergies: Coded Allergies: Soap (Verified Allergy, Intermediate, BLISTERS, 12/30/17) povidone-iodine (Verified Allergy, Intermediate, BLISTERS, 12/30/17) Home Meds Active Scripts Cefuroxime Axetil (CEFUROXIME) 500 Mg Tablet, 500 MG PO BID for infection, #14 TAB Prov:KIRA BAIG DO 01/15/18 Dicyclomine Hcl (DICYCLOMINE HCL) 20 Mg Tablet, 20 MG PO QID for abdominal cramping, #30 TAB 0 Refills Prov:LILIANA RUBALCAVA MD 01/03/18 Reported Medications Calcium Carbonate/Vitamin D3 (CALCIUM 500 + D TABLET) 1 Each Tablet, 2 EACH PO DAILY 12/30/17 Loperamide HCl (Imodium A-D) 2 Mg Capsule, 2 MG PO Q6H PRN for DIARRHEA 12/30/17 [Nystatin Swish] No Conflict Check, 201229 UNIT PO BID 12/30/17 Triamcinolone Acetonide 0.1% Cr 15 Gm Tube (TRIAMCINOLONE ACETONIDE 0.1% CREAM) 15 Gm Cream..g., 15 GM TP BID, TUBE 12/30/17 Ondansetron Hcl (ZOFRAN) 4 Mg Tablet, 4 MG PO Q6H PRN for NAUSEA, TAB 12/30/17 Spironolactone (SPIRONOLACTONE) 50 Mg Tablet, 50 MG PO QDAY 12/30/17 Oxybutynin Chloride (OXYBUTYNIN CHLORIDE ER) 15 Mg Tab.er.24, 15 MG PO QDAY, TAB.SA 12/30/17 Metoprolol Succinate (METOPROLOL SUCCINATE) 50 Mg Tab.er.24h, 200 MG PO QDAY, TAB 12/30/17 Folic Acid (FOLIC ACID) 1 Mg Tablet, 1 MG PO QDAY, TAB 12/30/17 Apixaban (ELIQUIS) 5 Mg Tablet, 5 MG PO BID 12/30/17 Cyanocobalamin (Vitamin B-12) (CYANOCOBALAMIN INJECTION) 1,000 Mcg/1 Ml Vial, 1000 MCG IJ DIRECTED, VIAL 12/30/17 Cephalexin 500 Mg Tab (KEFLEX 500 MG TAB) 500 Mg Tablet, 500 MG PO Q12H, #28 TAB 12/30/17 Aspirin (ASPIRIN) 81 Mg Tab.chew, 81 MG PO QDAY, TAB.CHEW 12/30/17 Cholecalciferol (Vitamin D3) (VITAMIN D) 5,000 Unit Tablet, 80035 UNIT PO DAILY 11/14/15 Pantoprazole Sodium (PANTOPRAZOLE SODIUM) 40 Mg Tablet.dr, 1 TAB PO QDAY, TAB.SR 11/10/15 Iron (IRON) 18 Mg Tablet, 28 MG PO 11/03/15 Oxycodone Hcl/Acetaminophen (OXYCODONE-ACETAMINOPHEN 5-325) 1 Each Tablet, 1 EACH PO Q6-8H for PAIN, TAB 11/03/15 Adalimumab (HUMIRA) 40 Mg/0.8 Ml/Kit Kit, 40 MG SUBQ, KIT 02/22/14 Levothyroxine Sodium (LEVOTHYROXINE SODIUM) 75 Mcg Tablet, 75 MCG PO QDAY 02/22/14 Lisinopril (LISINOPRIL) 20 Mg Tablet, 20 MG PO QDAY 04/12/13 Discontinued Reported Medications Rifampin (RIFAMPIN) 300 Mg Capsule, 300 MG PO BID, CAPSULE 12/30/17 Citalopram Hydrobromide (CELEXA) 10 Mg Tablet, 10 MG PO QDAY, #5 TAB 12/30/17 Discontinued Scripts Ondansetron Hcl (ZOFRAN) 4 Mg Tablet, 4 MG PO Q8H for Nausea, #15 TAB 0 Refills Prov:LILIANA RUBALCAVA MD 01/03/18 Past Medical/Surgical History Past Medical History Neurologic: Reports hx of: other neurologic history (hx polio) Cardiovascular: Reports hx of: atrial fibrillation hypertension Respiratory: Reports hx of: pneumonia Gastrointestinal: Reports hx of: Crohn's disease Musculoskeletal: Reports hx of: fractures (R elbow) Hematology/oncology: Reports hx of: prostate cancer Past Surgical History HEENT: Reports hx of: tonsillectomy Gastrointestinal: Reports hx of: hernia repair (R & RIHR - 2016) Musculoskeletal: Reports hx of: carpal tunnel release total joint replacement (Bilateral Knees and R hip) Reviewed Nurses Notes: Yes Old Medical Records Reviewed: Yes Hx Smoking: No Smoking Status: Never Smoker Hx Substance Use Disorder: No Hx Alcohol Use: No Constitutional Vital Sign - Last 24 Hours 01/14/18 01/14/18 01/14/18 01/14/18 20:41 20:41 20:44 21:00 Temp 98.1 Pulse 109 Resp 18 B/P (MAP) 162/112 162/112 (129) 146/102 (117) Pulse Ox 88 O2 Delivery Room Air O2 Flow Rate 2.0 01/14/18 01/14/18 01/14/18 01/14/18 21:07 21:45 21:50 22:00 Pulse 86 80 83 Resp 9 10 7 B/P (MAP) 147/102 (117) 147/106 (120) Pulse Ox 96 92 01/14/18 01/14/18 01/14/18 01/14/18 22:10 22:15 22:20 22:30 Pulse ??? 79 ??? Resp 5 6 11 B/P (MAP) 145/98 (114) 136/95 (109) Pulse Ox 90 96 96 01/14/18 01/14/18 01/14/18 01/14/18 22:40 22:45 22:50 23:00 Pulse 83 83 77 Resp 9 9 13 B/P (MAP) 150/105 (120) 139/96 (110) Pulse Ox 97 97 91 01/14/18 01/14/18 01/14/18 01/14/18 23:10 23:15 23:20 23:30 Pulse 76 80 75 Resp 8 13 8 B/P (MAP) 139/101 (114) 140/88 (105) Pulse Ox 97 96 94 01/14/18 01/14/18 01/14/18 01/15/18 23:40 23:45 23:50 00:00 Pulse 76 83 Resp 8 15 B/P (MAP) 138/100 (113) 143/106 (118) Pulse Ox 94 95 01/15/18 01/15/18 01/15/18 01/15/18 00:15 00:20 00:25 00:30 Pulse 82 82 Resp 11 12 B/P (MAP) 145/87 (106) 144/102 (116) Pulse Ox 95 96 01/15/18 00:35 Pulse 83 Resp 8 Pulse Ox 96 Intake and Output 01/14/18 01/14/18 01/15/18 15:00 23:00 07:00 Intake Total 910 ml Balance 910 ml Physical Exam Vital signs stable, afebrile, pulse ox normal General Appearance: The patient is alert, has no immediate need for airway protection and no current signs of toxicity. Slightly pale appearing, skin warm and dry, mild distress HEENT: Pupils equal and round no injection. TMs normal, oropharynx with moist membranes, no erythema or exudate Respiratory: Chest is non tender, lungs are clear to auscultation. No wheezing or rails Cardiac: regular rate and rhythm, no murmur Gastrointestinal: Abdomen is soft and non tender, no masses, bowel sounds normal. Musculoskeletal: Neck: Neck is supple and non tender. Extremities have full range of motion and are non tender. 1+ edema bilaterally to the knees Skin: No rashes or lesions. DIFFERENTIAL DIAGNOSIS: After history and physical exam differential diagnosis was considered for weakness including but not limited to electrolyte abnormality, depression, anxiety, CVA, spinal cord abnormality, and infectious causes. Additionally,chest pain including but not limited to myocardial ischemi a, pericarditis pulmonary embolus, chest wall pain, pleural inflammation and pulmonary infectious causes. Medical Decision Making Data Points Result Diagram: 01/14/18204601/14/182046 Laboratory Hematology Test 01/14/18 20:47 01/14/18 20:54 01/14/18 21:05 01/14/18 23:55 Red Blood Count 5.01 M/uL (4.00-5.60) Mean Corpuscular Volume 81.1 fL (80.0-96.0) Mean Corpuscular Hemoglobin 26.4 pg (26.0-33.0) Mean Corpuscular Hemoglobin Concent 32.6 g/dL (32.0-36.0) Red Cell Distribution Width 17.4 % (11.5-14.5) Mean Platelet Volume 6.9 fL (7.2-11.1) Neutrophils (%) (Auto) 66.4 % (39.4-72.5) Lymphocytes (%) (Auto) 25.0 % (17.6-49.6) Monocytes (%) (Auto) 6.5 % (4.1-12.4) Eosinophils (%) (Auto) 1.3 % (0.4-6.7) Basophils (%) (Auto) 0.8 % (0.3-1.4) Nucleated RBC Relative Count (auto) 0.0 /100WBC Neutrophils # (Auto) 5.3 K/uL (2.0-7.4) Lymphocytes # (Auto) 2.0 K/uL (1.3-3.6) Monocytes # (Auto) 0.5 K/uL (0.3-1.0) Eosinophils # (Auto) 0.1 K/uL (0.0-0.5) Basophils # (Auto) 0.1 K/uL (0.0-0.1) Nucleated RBC Absolute Count (auto) 0.00 K/uL Sodium Level 136 mmol/L (137-145) Potassium Level 3.5 mmol/L (3.5-5.0) Chloride Level 98 mmol/L (98-107) Carbon Dioxide Level 32 mmol/L (22-30) Blood Urea Nitrogen 13 mg/dl (9-21) Creatinine 0.90 mg/dl (0.66-1.25) Glomerular Filtration Rate Calc > 60.0 Random Glucose 101 mg/dl (75-110) Lactate 1.5 mmol/L (0.7-2.1) Calcium Level 8.6 mg/dl (8.4-10.2) Total Bilirubin 0.5 mg/dl (0.2-1.3) Aspartate Amino Transf (AST/SGOT) 21 U/L (0-35) Alanine Aminotransferase (ALT/SGPT) 18 U/L (0-56) Alkaline Phosphatase 126 U/L (0-126) Total Creatine Kinase 58 U/L (55-170) B-Type Natriuretic Peptide 662 pg/ml (0-100) Total Protein 6.5 g/dl (6.3-8.2) Albumin 3.1 g/dl (3.5-5.0) Urine Color Straw Urine Clarity Clear Urine pH 6.0 pH (4.8-9.5) Urine Specific [place] 1.008 Urine Protein Negative mg/dL (NEGATIVE) Urine Glucose (UA) Negative mg/dL (NEGATIVE) Urine Ketones Negative mg/dL (NEGATIVE) Urine Blood Negative (NEGATIVE) Urine Nitrite Negative (NEGATIVE) Urine Bilirubin Negative (NEGATIVE) Urine Urobilinogen Negative mg/dL (0.2-1.9) Urine Leukocyte Esterase Moderate (NEGATIVE) Urine RBC 1 /HPF (0-2/HPF) Urine WBC 14 /HPF (0-5/HPF) Urine Squamous Epithelial Cells None /LPF (</=FEW) Urine Bacteria Few /HPF (NONE-FEW) Urine Hyaline Casts Few /LPF (NONE-FEW) Urine Mucus None /HPF (NONE-FEW) Influenza Virus Type A (PCR) Negative (NEGATIVE) Influenza Virus Type B (PCR) Negative (NEGATIVE) Troponin I 0.057 ng/ml Chemistry Test 01/14/18 20:47 01/14/18 20:54 01/14/18 21:05 01/14/18 23:55 White Blood Count 8.0 k/uL (4.5-11.0) Red Blood Count 5.01 M/uL (4.00-5.60) Hemoglobin 13.2 g/dL (14.0-18.0) Hematocrit 40.6 % (42.0-52.0) Mean Corpuscular Volume 81.1 fL (80.0-96.0) Mean Corpuscular Hemoglobin 26.4 pg (26.0-33.0) Mean Corpuscular Hemoglobin Concent 32.6 g/dL (32.0-36.0) Red Cell Distribution Width 17.4 % (11.5-14.5) Platelet Count 544 K/uL (150-450) Mean Platelet Volume 6.9 fL (7.2-11.1) Neutrophils (%) (Auto) 66.4 % (39.4-72.5) Lymphocytes (%) (Auto) 25.0 % (17.6-49.6) Monocytes (%) (Auto) 6.5 % (4.1-12.4) Eosinophils (%) (Auto) 1.3 % (0.4-6.7) Basophils (%) (Auto) 0.8 % (0.3-1.4) Nucleated RBC Relative Count (auto) 0.0 /100WBC Neutrophils # (Auto) 5.3 K/uL (2.0-7.4) Lymphocytes # (Auto) 2.0 K/uL (1.3-3.6) Monocytes # (Auto) 0.5 K/uL (0.3-1.0) Eosinophils # (Auto) 0.1 K/uL (0.0-0.5) Basophils # (Auto) 0.1 K/uL (0.0-0.1) Nucleated RBC Absolute Count (auto) 0.00 K/uL Glomerular Filtration Rate Calc > 60.0 Lactate 1.5 mmol/L (0.7-2.1) Calcium Level 8.6 mg/dl (8.4-10.2) Total Bilirubin 0.5 mg/dl (0.2-1.3) Aspartate Amino Transf (AST/SGOT) 21 U/L (0-35) Alanine Aminotransferase (ALT/SGPT) 18 U/L (0-56) Alkaline Phosphatase 126 U/L (0-126) Total Creatine Kinase 58 U/L (55-170) B-Type Natriuretic Peptide 662 pg/ml (0-100) Total Protein 6.5 g/dl (6.3-8.2) Albumin 3.1 g/dl (3.5-5.0) Urine Color Straw Urine Clarity Clear Urine pH 6.0 pH (4.8-9.5) Urine Specific [place] 1.008 Urine Protein Negative mg/dL (NEGATIVE) Urine Glucose (UA) Negative mg/dL (NEGATIVE) Urine Ketones Negative mg/dL (NEGATIVE) Urine Blood Negative (NEGATIVE) Urine Nitrite Negative (NEGATIVE) Urine Bilirubin Negative (NEGATIVE) Urine Urobilinogen Negative mg/dL (0.2-1.9) Urine Leukocyte Esterase Moderate (NEGATIVE) Urine RBC 1 /HPF (0-2/HPF) Urine WBC 14 /HPF (0-5/HPF) Urine Squamous Epithelial Cells None /LPF (</=FEW) Urine Bacteria Few /HPF (NONE-FEW) Urine Hyaline Casts Few /LPF (NONE-FEW) Urine Mucus None /HPF (NONE-FEW) Influenza Virus Type A (PCR) Negative (NEGATIVE) Influenza Virus Type B (PCR) Negative (NEGATIVE) Troponin I 0.057 ng/ml Urinalysis Test 01/14/18 20:54 Urine Color Straw Urine Clarity Clear Urine pH 6.0 pH (4.8-9.5) Urine Specific [place] 1.008 Urine Protein Negative mg/dL (NEGATIVE) Urine Glucose (UA) Negative mg/dL (NEGATIVE) Urine Ketones Negative mg/dL (NEGATIVE) Urine Blood Negative (NEGATIVE) Urine Nitrite Negative (NEGATIVE) Urine Bilirubin Negative (NEGATIVE) Urine Urobilinogen Negative mg/dL (0.2-1.9) Urine Leukocyte Esterase Moderate (NEGATIVE) Urine RBC 1 /HPF (0-2/HPF) Urine WBC 14 /HPF (0-5/HPF) Urine Squamous Epithelial Cells None /LPF (</=FEW) Urine Bacteria Few /HPF (NONE-FEW) Urine Hyaline Casts Few /LPF (NONE-FEW) Urine Mucus None /HPF (NONE-FEW) Microbiology Microbiology Date/Time Source Procedure Growth Status 01/14/18 21:16 Blood Peripheral Draw Blood Culture - Preliminary NO GROWTH AFTER 1 DAY, REINCUBATED Resulted 01/14/18 21:10 Blood Peripheral Draw Blood Culture - Preliminary NO GROWTH AFTER 1 DAY, REINCUBATED Resulted 01/14/18 20:54 Clean Catch Midstream Ur Urine Culture - Preliminary Gram Negative Regino Resulted EKG/Imaging EKG Interpretation 12 lead EK Rhythm: normal sinus rhythm [place]: Left axis deviation QRS: Nonspecific interventricular conduction the leg ST segments: normal, comparison to previous EKG dated 12/30/17, no si gnificant change Imaging X-ray: Single view chest x-ray was obtained. I viewed the images myself on the PACS system. My interpretation of the images is: Bilateral pleural effusions, clear lung driver. The radiologist interpretation had no clinically significant variation from this interpretation. Results: CT scan of the head without contrast was obtained. The results of the study are no acute findings. The study was read by the radiologist. I viewed the images myself on the PACS system. ED Course/Re-evaluation Clinical Indication for ER IV: Hydration, IV Access ED Course Patient was admitted to an examination room. H&P was done. The differential diagnoses was considered. On conical presentation. Patient's had 2 hours of chest pain. His EKG is unchanged. His 1st troponin is indeterminate at 0.077. A 3 hour repeat is ordered. Patient's urinalysis returns with signs of infection. His white count is normal. His chest x-ray is clear except for effusions. Patient feels better after Tylenol and Zofran. Patient's given Rocephin 1 g IV and discharged home after his 2nd troponin returns decreasing at 0.057. He'll be covered with Ceftin 500 mg by mouth twice a day for 7 days. A urinary culture was ordered. Patient advised to follow-up with primary care this week. Decision to Disposition Date: Jan 15, 2018 Decision to Disposition Time: 00:25 Depart Departure Latest Vital Signs Vital Signs Date Time Temp Pulse Resp B/P (MAP) Pulse Ox O2 Delivery O2 Flow Rate FiO2 01/15/18 00:35 83 8 96 01/15/18 00:30 144/102 (116) 01/14/18 20:41 98.1 Room Air 01/14/18 20:41 2.0 Impression: Primary Impression: Urinary tract infection Additional Impressions: Elevated troponin Weakness Condition: Improved Disposition: HOME OR SELF-CARE Referrals: COCO LUCIA (PCP) New Scripts Cefuroxime Axetil (CEFUROXIME) 500 Mg Tablet 500 MG PO BID for infection, #14 TAB Prov: KIRA BAIG DO 01/15/18 Patient Instructions: Urinary Tract Infection in Men (ED) Additional Instructions: Follow-up with primary care in 2-3 days for culture check Problem Qualifiers Primary Impression: Urinary tract infection Urinary tract infection type: acute cystitis Hematuria presence: without hematuria Qualified Codes: N30.00 - Acute cystitis without hematuria KIRA BAIG DO Jan 14, 2018 20:48
[2018-01-14] MEDS ORDERED: NS(*) 0.9% 1000 ML BAG 1,000 ML IV ONE (20:51)
[2018-01-14] MEDS ORDERED: ACETAMINOPHEN 325 MG TAB PO ONE (20:55)
[2018-01-14 21:04] LABS: PLATELET COUNT, AUTOMATED 544 K/uL (150-450)
[2018-01-14] MEDS ORDERED: ASPIRIN 81 MG CHEW PO ONE (21:05)
--- NOTE | 2018-01-14 21:25 | EKG ---
[place] [facility] [place] JORGE VILLATORO : [id number] MR: [id number] V: [id number] EXAM DATE: ORDERING PHYSICIAN: KIRA BAIG TECHNOLOGIST: BARTOLO Mitchell Reason : Weakness and CP Blood Pressure : / mmHG Vent. Rate : 077 BPM Atrial Rate : 170 BPM P-R Int : 000 ms QRS Dur : 124 ms QT Int : 402 ms P-R-T Axes : 000 -50 025 degrees QTc Int : 454 ms Atrial fibrillation Left axis deviation Nonspecific intraventricular conduction delay Abnormal ECG Similar to previous EKG Confirmed by NANCI MIRANDA ([id number]) on 01/15/2018 6:12:30 AM Referred By: Confirmed By:NANCI MIRANDA
--- NOTE | 2018-01-14 22:15 | RADIOLOGY IMAGING REPORT ---
[place] [facility] [place] NAME: Wolf Camacho : 1940 MR: [id number] V: [id number] EXAM DATE: ORDERING PHYSICIAN: KIRA BAIG TECHNOLOGIST: Location: [facility] Patient: Wolf Camacho : 1940 Visit/Account:[id number] Date of Sevice: 01/14/2018 TWO VIEW CHEST 01/14/2018 8:51 PM. INDICATION: FEVER COMPARISON: 01/02/2018 and previous. FINDINGS: Lungs are well-expanded. Mild blunting costophrenic sulci bilaterally best demonstrated on the lateral view. Mild bibasilar streaky opacification. Lungs are otherwise clear. No pneumothora x. Heart size is within normal limits.. IMPRESSION: Bilateral small pleural effusions and mild bibasilar scarring/atelectasis. Underlying in fection not excluded. Report Dictated By: Stalin Wong MD at 01/14/2018 10:08 PM Report E-Signed By: Stalin Wong MD at 01/14/2018 10:10 PM WSN:[id number]
--- NOTE | 2018-01-14 22:16 | RADIOLOGY IMAGING REPORT ---
FACILITY: [facility] [place] PATIENT NAME: Wolf Camacho : 1940 MR: [id number] V: [id number] EXAM DATE: ORDERING PHYSICIAN: KIRA BIAG TECHNOLOGIST: Location: [facility] [place] Patient: Wolf Camacho : 1940 Visit/Account:[id number] Date of Sevice: 01/14/2018 CT Head without contrast Indication: Fever. Comparison: 06/21/2017. Technique: Axial CT images were obtained through the brain from the skull base to the vertex without administration of IV contrast. Reformatted coronal and sagittal images were also obtained. One of the following dose optimization techniques was utilized in the performance of this exam: autom ated exposure control; adjustment of the mA and/or kV according to the patient's size; or use of an i terative reconstruction technique. Specific details can be referenced in the facility's radiology CT exam operational policy. Findings: No intracranial bleed, midline shift, mass effect, extra-axial fluid collection or hydrocephalus. Age -related cerebral atrophy. Mild periventricular ischemic changes consistent small vessel disease. Gra y/white matter differentiation appears normal. The right side of the pituitary fossa again shows a ma sslike prominence soft tissue which is similar to the previous examination and abuts up against the c avernous sinus and the sphenoid sinus. Unsure if this extends into the sphenoid sinus. The appearance is similar to the previous examination. The bony structures show no fractures or lesions. There is again mucosal thickening seen in the left maxillary sinus with metallic density likely posts urgical. The remaining sinuses and mastoids visualized are clear. IMPRESSION: 1. Senescent changes without acute abnormality. 2. There is again soft tissue masslike prominence of the right side of the pituitary gland. 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 Gena boggs a follow-up MRI of the pituitary and brain without and with contrast, can further evaluate for etio logy. 3. Continued left maxillary sinus disease. Report Dictated By: Cooper Infante at 01/14/2018 10:03 PM Report E-Signed By: Cooper Infante at 01/14/2018 10:12 PM WSN:[id number]
[2018-01-15] MEDS ORDERED: cefTRIAXone 1 GM VIAL IVP ONE (00:25)
[2018-01-15] MEDS ORDERED: CEFU500T10 PO (00:29)
[2018-01-15 00:30] VITALS: BP 144/102
== END 2018-01-15 00:47 | disposition home or self-care (01) ==
LOC: ER 20:55
DX: N30.00 Acute cystitis without hematuria (principal); R79.89 Other specified abnormal findings of blood chemistry; R53.1 Weakness; I48.91 Unspecified atrial fibrillation; J90 Pleural effusion, not elsewhere classified; J32.0 Chronic maxillary sinusitis
CPT/HCPCS: 36415; 70450; 71046; 81001; 82550; 83605; 83880; 84484; 85025; 87040; 87077; 87088; 87186; 87502; 93005; 96361; 96374; 99284; A9270; J0696; J7030; 82040; 82247; 82310; 82374; 82435; 82565; 82947; 84075; 84132; 84155; 84295; 84450; 84460; 84520

== ENCOUNTER → 2018-02-13 | Outpatient (CLI) | payer MEDICARE, OTHER ==
[2017-12-31 11:59] VITALS: BMI 29.6
[~2018-02-13] MED LIST changes: +CEFU500T10 PO
[2018-02-13 10:37] LABS: PLATELET COUNT, AUTOMATED 547 K/uL (150-450)
[2018-02-13 10:51] LABS: LDL CHOLESTEROL 33 mg/dl
== END ==
LOC: LAB 10:06
PROVIDERS: ATTEND Nurse Practitioner Family
DX: R77.0 Abnormality of albumin (principal); E03.8 Other specified hypothyroidism; I10 Essential (primary) hypertension; L03.116 Cellulitis of left lower limb; L03.115 Cellulitis of right lower limb; I48.2 Chronic atrial fibrillation; I50.9 Heart failure, unspecified; E55.9 Vitamin D deficiency, unspecified; E11.9 Type 2 diabetes mellitus without complications; R60.9 Edema, unspecified; E83.52 Hypercalcemia; E21.3 Hyperparathyroidism, unspecified; E87.6 Hypokalemia; E61.1 Iron deficiency; E50.9 Vitamin A deficiency, unspecified; M79.18 Myalgia, other site; M62.81 Muscle weakness (generalized); E88.09 Other disorders of plasma-protein metabolism, not elsewhere classified; D51.0 Vitamin B12 deficiency anemia due to intrinsic factor deficiency; L89.892 Pressure ulcer of other site, stage 2; D53.0 Protein deficiency anemia; D53.9 Nutritional anemia, unspecified
CPT/HCPCS: 36415; 82040; 82247; 82306; 82310; 82374; 82435; 82465; 82565; 82607; 82746; 82947; 83036; 83718; 83880; 84075; 84132; 84155; 84207; 84295; 84443; 84450; 84460; 84478; 84520; 84550; 85025; 85651

== ENCOUNTER → 2018-03-31 | Outpatient (CLI) | payer MEDICARE, OTHER ==
[2017-12-31 11:59] VITALS: BMI 29.6
[~2018-03-31] MED LIST changes: -AMLO-111 PO; +AMLO-125 PO; +FURO20TA19 PO; +FURO40TA35 PO; +LEVO88TA43 PO
== END ==
LOC: LAB 13:14
PROVIDERS: ATTEND Nurse Practitioner Family
DX: E03.8 Other specified hypothyroidism (principal); R77.0 Abnormality of albumin; I10 Essential (primary) hypertension; L03.116 Cellulitis of left lower limb; L03.115 Cellulitis of right lower limb; I48.2 Chronic atrial fibrillation; I50.9 Heart failure, unspecified; E55.9 Vitamin D deficiency, unspecified; E11.9 Type 2 diabetes mellitus without complications; R60.9 Edema, unspecified; E83.52 Hypercalcemia; E21.3 Hyperparathyroidism, unspecified; E87.6 Hypokalemia; E61.1 Iron deficiency; D50.9 Iron deficiency anemia, unspecified; M79.18 Myalgia, other site; M62.81 Muscle weakness (generalized); E88.09 Other disorders of plasma-protein metabolism, not elsewhere classified; D51.0 Vitamin B12 deficiency anemia due to intrinsic factor deficiency; L89.892 Pressure ulcer of other site, stage 2; D53.0 Protein deficiency anemia; E53.9 Vitamin B deficiency, unspecified; R53.81 Other malaise; E79.0 Hyperuricemia without signs of inflammatory arthritis and tophaceous disease; E63.8 Other specified nutritional deficiencies; R73.01 Impaired fasting glucose; E78.00 Pure hypercholesterolemia, unspecified
CPT/HCPCS: 36415; 82040; 82247; 82310; 82374; 82435; 82565; 82947; 83880; 84075; 84132; 84155; 84295; 84450; 84460; 84520; 85027; 85651

== ENCOUNTER → 2018-04-14 | Outpatient (CLI) | payer MEDICARE, OTHER ==
[2017-12-31 11:59] VITALS: BMI 29.6
[2018-04-14 16:46] LABS: PLATELET COUNT, AUTOMATED 438 K/uL (150-450)
== END ==
LOC: LAB 16:24
PROVIDERS: ATTEND Nurse Practitioner Family
DX: R53.81 Other malaise (principal); E87.8 Other disorders of electrolyte and fluid balance, not elsewhere classified; D50.9 Iron deficiency anemia, unspecified
CPT/HCPCS: 36415; 82040; 82247; 82310; 82374; 82435; 82565; 82728; 82947; 84075; 84132; 84155; 84295; 84450; 84460; 84520; 85025; 85651

== ENCOUNTER → 2018-05-11 | Outpatient (CLI) | payer MEDICARE, OTHER ==
[2017-12-31 11:59] VITALS: BMI 29.6
== END ==
LOC: LAB 12:11
PROVIDERS: ATTEND Nurse Practitioner Family
DX: I48.1 Persistent atrial fibrillation (principal); I50.9 Heart failure, unspecified; K50.818 Crohn's disease of both small and large intestine with other complication; E11.9 Type 2 diabetes mellitus without complications; E83.52 Hypercalcemia; D53.0 Protein deficiency anemia; R23.3 Spontaneous ecchymoses
CPT/HCPCS: 36415; 82040; 82247; 82310; 82374; 82435; 82565; 82947; 83880; 84075; 84132; 84155; 84295; 84450; 84460; 84520; 85027; 85651

== ENCOUNTER 2018-05-17 09:00 | Outpatient (RCR) | payer MEDICARE, OTHER ==
[2017-12-31 11:59] VITALS: BMI 29.6
[~2018-05-17 09:00] MED LIST changes: +DEXTROSE 5%(*) 100 ML BAG 100 ML IVPB PRN; +LIDOCAINE/SOD BICARB 8.4% SYR ID PRN; +NS(*) 0.9% 100 ML BAG 100 ML IVPB PRN; +NS(*) 0.9% 500 ML BAG 500 ML IV PRN
[2018-05-17 09:12] VITALS: BP 143/93
[2018-05-17 10:29] VITALS: BP 138/84
[2018-05-17 10:44] VITALS: BP 134/72
[2018-05-17 12:33] VITALS: BP 140/100
[2018-06-16] MEDS ORDERED: METO200T12 PO (09:56)
[2018-06-16] MEDS ORDERED: APIX5TAB4 PO (09:56)
[2018-06-16] MEDS ORDERED: FERR159T PO (09:56)
== END 2018-07-10 16:21 | disposition home or self-care (01) ==
LOC: SPU 09:00
PROVIDERS: ATTEND Nurse Practitioner Family
DX: D50.0 Iron deficiency anemia secondary to blood loss (chronic) (principal)
CPT/HCPCS: 36430; 86850; 86900; 86901; 86920; J7040; P9016

== ENCOUNTER 2018-06-21 01:14 | Day surgery (SDC) | payer MEDICARE, OTHER ==
[2017-12-31 11:59] VITALS: Ht 182.9 cm; Wt 86.6 kg
[~2018-06-21] VITALS: Ht 182.9 cm; Wt 86.6 kg
[~2018-06-21 01:14] MED LIST changes: +APIX5TAB4 PO; -DEXTROSE 5%(*) 100 ML BAG 100 ML IVPB PRN; +FERR159T PO; -LIDOCAINE/SOD BICARB 8.4% SYR ID PRN; +METO200T12 PO; -NS(*) 0.9% 100 ML BAG 100 ML IVPB PRN; -NS(*) 0.9% 500 ML BAG 500 ML IV PRN
[2018-06-21] MEDS ORDERED: LIDOCAINE MPF 1% 5 ML VIAL ONE (07:35)
[2018-06-21] MEDS ORDERED: PROPOFOL EMUL(*) 10MG/ML 20 ML 40 ML ONE (07:35)
[2018-06-21 08:24] VITALS: BP 129/90
[2018-06-21] MEDS ORDERED: NORMOSOL R SOLN(*) 1000 ML BAG 1,000 ML IV PRN (08:30)
[2018-06-21] MEDS ORDERED: MIDAZOLAM 2 MG/2 ML VIAL IVP PRN (08:30)
[2018-06-21] MEDS ORDERED: LIDOCAINE/SOD BICARB 8.4% SYR ID ONE (08:30)
[2018-06-21 10:12] VITALS: BP 96/70
--- NOTE | 2018-06-21 10:26 | Short(Outpt) Discharge Summary ---
Discharge Summary Reason for Hosp/Final Diag: (1) Crohns disease Status: Chronic Hospital Course & Plan: Colonoscopy completed without problems, mild stenosis of TI but no real active inflammation and scope passed easily through narrowed areas. Departure Discharge to: Home, Self Care Discharge Instructions Home Meds Reported Medications Apixaban (Eliquis) 5 Mg (74 Tabs) Tab.ds.pk, 5 MG PO DAILY 06/16/18 Ferrous Sulfate, Dried (IRON) 159 Mg Tablet.er, 65 MG PO DAILY 06/16/18 Metoprolol Succ 200 Mg Xl Tab (METOPROLOL SUCCINATE 200 MG) 200 Mg Tab.er.24h, 1 TAB PO QDAY, TAB 06/16/18 Levothyroxine Sodium (SYNTHROID) 88 Mcg Tablet, 88 MCG PO QDAY 03/03/18 Furosemide (LASIX) 20 Mg Tablet, 1 TAB PO DAILY, TAB 03/03/18 Calcium Carbonate/Vitamin D3 (CALCIUM 500 + D TABLET) 1 Each Tablet, 2 EACH PO DAILY 12/30/17 Loperamide HCl (Imodium A-D) 2 Mg Capsule, 2 MG PO Q6H PRN for DIARRHEA 12/30/17 Triamcinolone Acetonide 0.1% Cr 15 Gm Tube (TRIAMCINOLONE ACETONIDE 0.1% CREAM) 15 Gm Cream..g., 15 GM TP BID, TUBE 12/30/17 Spironolactone (SPIRONOLACTONE) 50 Mg Tablet, 50 MG PO QDAY 12/30/17 Oxybutynin Chloride (OXYBUTYNIN CHLORIDE ER) 15 Mg Tab.er.24, 15 MG PO QDAY, TAB.SA 12/30/17 Folic Acid (FOLIC ACID) 1 Mg Tablet, 1 MG PO QDAY, TAB 12/30/17 Cyanocobalamin (Vitamin B-12) (CYANOCOBALAMIN INJECTION) 1,000 Mcg/1 Ml Vial, 1000 MCG IJ DIRECTED, VIAL 12/30/17 Cholecalciferol (Vitamin D3) (VITAMIN D) 5,000 Unit Tablet, 58055 UNIT PO DAILY 11/14/15 Pantoprazole Sodium (PANTOPRAZOLE SODIUM) 40 Mg Tablet.dr, 1 TAB PO QDAY, TAB.SR 11/10/15 Oxycodone Hcl/Acetaminophen (OXYCODONE-ACETAMINOPHEN 5-325) 1 Each Tablet, 1 EACH PO Q6-8H for PAIN, TAB 11/03/15 Adalimumab (HUMIRA) 40 Mg/0.8 Ml/Kit Kit, 40 MG SUBQ, KIT 02/22/14 Lisinopril (LISINOPRIL) 20 Mg Tablet, 20 MG PO QDAY 04/12/13 Discontinued Reported Medications [Nystatin Swish] No Conflict Check, [id number] UNIT PO BID 12/30/17 Ondansetron Hcl (ZOFRAN) 4 Mg Tablet, 4 MG PO Q6H PRN for NAUSEA, TAB 12/30/17 Metoprolol Succinate (METOPROLOL SUCCINATE) 50 Mg Tab.er.24h, 200 MG PO QDAY, TAB 12/30/17 Apixaban (ELIQUIS) 5 Mg Tablet, 5 MG PO BID 12/30/17 Aspirin (ASPIRIN) 81 Mg Tab.chew, 81 MG PO QDAY, TAB.CHEW 12/30/17 Iron (IRON) 18 Mg Tablet, 28 MG PO 11/03/15 Diet: Regular Activity: As Tolerated Special Instructions: Your colonoscopy was completed without any problems and your prep was excellent (Good Job!!). Your colon was completely normal without any polyps, inflammation, or other abnormalities. Your small bowel (terminal ileum) had 2 mild scictures but I was able to easily pass the scope through these. The inflammation in the small bowel that I could visualize (which was about 10 cm of small bowel) was very minimal and seems well controlled. We will repeat the CT of your abdomen a year from your last CT to assess the small bowel polyps that were seen on the previous CT and my office will call you to order this repeat CT. Problem Qualifiers (1) Crohns disease: Gastrointestinal tract location: small intestine Digestive disease complication type: without complication Qualified Codes: K50.00 - Crohn's disease of small intestine without complications JOSE MATHIS MD June 21, 2018 10:26
[2018-06-21 10:29] VITALS: BP 111/75
[2018-06-21 10:59] VITALS: BP 108/82
[2018-06-21 11:25] VITALS: BP 124/98
[2018-06-21 11:27] VITALS: BP 129/88
== END 2018-06-21 11:47 | disposition home or self-care (01) ==
LOC: OR 01:14
PROVIDERS: ATTEND Surgery
DX: K56.699 Other intestinal obstruction unspecified as to partial versus complete obstruction (principal); K50.90 Crohn's disease, unspecified, without complications
CPT/HCPCS: 00811; 45378; J2001; J2704

== ENCOUNTER → 2018-07-06 | Outpatient (CLI) | payer MEDICARE, OTHER ==
[2017-12-31 11:59] VITALS: BMI 29.6
[2018-07-06 11:43] LABS: PLATELET COUNT, AUTOMATED 303 K/uL (150-450)
== END ==
LOC: LAB 11:03
PROVIDERS: ATTEND Nurse Practitioner Family
DX: R53.81 Other malaise (principal); E87.8 Other disorders of electrolyte and fluid balance, not elsewhere classified
CPT/HCPCS: 36415; 82040; 82247; 82310; 82374; 82435; 82565; 82947; 83880; 84075; 84132; 84155; 84295; 84450; 84460; 84520; 85025

== ENCOUNTER 2018-08-08 10:00 | Outpatient (RCR) | payer MEDICARE, OTHER ==
[2017-12-31 11:59] VITALS: BMI 29.6
[2018-07-24 10:21] VITALS: BP 132/86
[2018-07-24] MEDS: [UNRECOGNIZED DRUG - OTHER] IVP PRN (10:36)
[2018-07-24] MEDS: NS 0.9% IVP PRN (10:36)
[2018-07-24] MEDS: NS(*) 0.9% 100 ML BAG 100 ML IVPB PRN (10:37)
[2018-07-26 12:20] VITALS: BP 146/90
[2018-07-26] MEDS: NS 0.9% IVP PRN (12:22)
[2018-07-26] MEDS: [UNRECOGNIZED DRUG - OTHER] IVP PRN (12:22)
[2018-07-26] MEDS: LIDOCAINE/SOD BICARB 8.4% SYR ID PRN (12:23)
[2018-07-26] MEDS: NS(*) 0.9% 100 ML BAG 100 ML IVPB PRN (12:24)
[2018-07-26 13:32] VITALS: BP 139/95
[2018-07-28 10:20] VITALS: BP 138/94
[2018-07-28] MEDS: LIDOCAINE/SOD BICARB 8.4% SYR ID PRN (10:30)
[2018-07-28] MEDS: NS(*) 0.9% 100 ML BAG 100 ML IVPB PRN (10:30)
[2018-07-28] MEDS: NS 0.9% IVP PRN (10:30)
[2018-07-28] MEDS: [UNRECOGNIZED DRUG - OTHER] IVP PRN (10:30)
[2018-07-28 11:35] VITALS: BP 133/96
[2018-07-31 10:49] VITALS: BP 138/88
[2018-07-31] MEDS: NS 0.9% IVP PRN (10:52)
[2018-07-31] MEDS: [UNRECOGNIZED DRUG - OTHER] IVP PRN (10:52)
[2018-07-31] MEDS: LIDOCAINE/SOD BICARB 8.4% SYR ID PRN (10:52)
[2018-07-31 12:16] VITALS: BP 143/89
[2018-07-31] MEDS: NS(*) 0.9% 100 ML BAG 100 ML IVPB PRN (12:20)
[2018-08-02 12:22] VITALS: BP 139/89
[2018-08-02] MEDS: NS(*) 0.9% 100 ML BAG 100 ML IVPB PRN (12:30)
[2018-08-02] MEDS: NS 0.9% IVP PRN (12:30)
[2018-08-02] MEDS: [UNRECOGNIZED DRUG - OTHER] IVP PRN (12:30)
[~2018-08-08 10:00] MED LIST changes: +DEXTROSE 5%(*) 100 ML BAG 100 ML IVPB PRN
[2018-08-08 11:50] VITALS: BP 148/101
[2018-08-08] MEDS: NS(*) 0.9% 100 ML BAG 100 ML IVPB PRN (12:05)
[2018-08-08] MEDS: LIDOCAINE/SOD BICARB 8.4% SYR ID PRN (12:05)
[2018-08-08] MEDS: [UNRECOGNIZED DRUG - OTHER] IVP PRN (12:07)
[2018-08-08] MEDS: NS 0.9% IVP PRN (12:07)
[2018-08-08 13:15] VITALS: BP 139/90
== END 2018-08-30 12:30 | disposition home or self-care (01) ==
LOC: SPU 10:00
PROVIDERS: ATTEND Nurse Practitioner Family
DX: D50.0 Iron deficiency anemia secondary to blood loss (chronic) (principal)
CPT/HCPCS: 96365; J2916; J7050